=== PATIENT | male | born 1965 | race Caucasian/White ===

== ENCOUNTER 2019-05-27 03:46 | Inpatient (IN) | payer SELFPAY ==
[2019-05-27] MEDS ORDERED: Ketorolac Tromethamine 30 MG/ML VIAL ONE (05:33)
[2019-05-27 08:16] LABS: CKMB 0.5 ng/mL (0-6.6)
[2019-05-27] MEDS ORDERED: HYDROcodone/Acetaminophen 5/325 mg Tablet PO PRN (08:50)
[2019-05-27] MEDS ORDERED: Dextrose 5% in Water 1,000 ML IV PRN (08:53)
[2019-05-27] MEDS ORDERED: Dextrose 50% Abboject 50 ML SYRINGE SLOW IVP PRN (08:53)
[2019-05-27] MEDS ORDERED: Vancomycin HCl 1 GM in Premix Bag 1 BAG IVPB SCH (09:00)
[2019-05-27] MEDS ORDERED: Albuterol Sulfate 1.25 MG/3 ML NEB NEB PRN (09:17)
[2019-05-27] MEDS ORDERED: Sodium Chloride 0.9% 1,000 ML IV SCH (10:30)
--- NOTE | 2019-05-27 10:30 | CT ---
CT ANGIO CHEST PERFORMED WITH IV CONTRAST ENHANCEMENT WITH 3D RECONSTRUCTION: Date: 05/27/19 HISTORY: Chest pain, fever, tachycardia. FINDINGS: The lungs are clear of any infiltrative process. There are subsegmental atelectatic changes present. There is no significant mediastinal, hilar, or axillary adenopathy present. The thoracic aorta is normal in caliber. There is fair pulmonary artery opacification. Peripheral emb sunil are not excluded, but no central embolus is seen. Visualized liver parenchyma does not show any focal findings. Spleen is incompletely visualized, but appears enlarged, measuring greater than 14.0 cm. Right and left adrenal glands are normal in appeara nce. There is evidence of air and fluid density in an irregularly shaped collection in the midline of the upper back directly posterior to the spinous processes and within the subcutaneous tissue without def inite deep extension. It is ill-defined, but measurement would be approximately 7.0 cm. It extends ve ry close to the skin surface. There is no additional air tracking superiorly or inferiorly from this area. Findings would be most compatible with an abscess. IMPRESSION: 1. Somewhat ill-defined superficial abscess in the midline upper back region. 2. No CT evidence for pulmonary embolus. 3. Splenomegaly. Findings discussed with Dr. Rutherford. CODE CR.
--- NOTE | 2019-05-27 10:53 | CON ---
DATE OF CONSULTATION: HISTORY OF PRESENT ILLNESS: Earl Pryor is a morbidly obese 53-year-old diabetic gentleman, who for the last week, has had a sore in his back. He stated he was waiting until it felt that need to be popped, therefore did not see any physician. He now comes to the hospital with fever, chills, tachycardia, and vague chest pain. Not coughing any sputum. Apparently, he was started on some clindamycin several days ago. He is from [place], [place]. He sees a doctor in [place], [place]. PAST MEDICAL HISTORY: Sleep apnea, noncompliant, morbidly obese, and diabetes. Asthma, he takes no medication. PAST SURGICAL HISTORY: Included a fracture of his right ankle, plates and screws, which apparently did not heal. MEDICATIONS: 1. Aspirin. 2. Glipizide 10. 3. Lantus 75. 4. Gabapentin 800. 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 REVIEW OF SYSTEMS: Ten-point negative. PHYSICAL EXAMINATION: VITAL SIGNS: He is tachycardic at 150, appears to be sinus tachycardia. Blood pressure 110/80, respirations 20, and he is afebrile. CHEST: Decreased breath sounds. No wheezing. CARDIAC: Normal S1-S2. No gallops. Sinus tach. ABDOMEN: Massive. NEUROLOGIC: Awake, alert, and responsive. EXTREMITIES: He has a sore, in fact it looks like a gangrenous ulcer on his left foot. He has a large area of erythematous swelling in his posterior back measuring at least 10 x 10 cm suggestive of superficial cellulitis. LABORATORY DATA: His white count is 13,000. His glucose is elevated. IMPRESSION: Sepsis, diabetes, sleep apnea, asthma, and morbid obesity. He is on Zosyn and vancomycin, that should be more than adequate at this stage. IV fluid hydration. Surgical opinion will follow. Consultation note, 70 minutes, 50% direct patient care. Job ID: [id number]
--- NOTE | 2019-05-27 10:55 | RAD ---
3 VIEWS LEFT ANKLE: Date: 05/27/19 HISTORY: Charcot arthropathy. FINDINGS: There are degenerative changes involving the hindfoot/midfoot, likely due to Charcot arthropathy. Wit h regard to the ankle, there is mild soft tissue swelling. No evidence of fracture. Joint spaces are preserved. IMPRESSION: Charcot arthropathy of hindfoot/midfoot. POS: [facility]
--- NOTE | 2019-05-27 10:57 | HP ---
CHIEF COMPLAINT: Chest pain and back abscess. HISTORY OF PRESENT ILLNESS: This patient is a 53-year-old male with a history of significant lower extremity injury to the right leg causing substantial immobility. He also has diabetes and significant diabetic neuropathy of the ankles and feet. The patient subsequently developed morbid obesity, though he has been trying to lose some weight. He reports that he had an abscess in his upper back about 20 years ago. At that time, he waited until it had a "head on it." At that time, he apparently used a beer bottle to press down on it and express the pus from the abscess and he states that healed. At this time, he developed a similar type abscess on his back about a week ago. He thought he could wait and go through the same process this time and was not overly worried about it, but then he had some erythema extending down the central back along the spine area. He reports he has had some chills and also had some drenching night sweats, but denies fever. Denies any drainage from the wound. The patient also reports that for about the past 3 months, he has been having some intermittent chest pain which he described as "catches" that were minor. He reports that in the last 3 days, he has had a constant pain that feels like an elephant sitting on his chest and has spikes of that pain occurring a couple of times an hour, which are 10/10 pain, making it difficult for him to breathe. He has had this pain primarily in the central chest without radiation. He also at one point decided that this may be related to his blood sugar. He checked it, it was over 500. Some of his medications cut it down into the 200s, but reports he was not feeling better. He does report that with this, he has had some difficulty in concentrating, some blurred vision, and some difficulty speaking because of inability to concentrate on his words. REVIEW OF SYSTEMS: Again, notable for the chills and night sweats. He reports that he has not voided since he got to this facility last night after transferring from the [facility]. All other systems reviewed, all pertinent positives and negatives were noted in history of present illness. PAST MEDICAL HISTORY: The patient reports that he had a spiral fracture of the right tibia in 2017. He had surgery with plates and screws and states that when he was finally able to try to bear weight on it, it all fell apart and it was blamed on his being diabetic. Ultimately, the ankle apparently fused itself. Then, he has been able to bear some weight and walk on it. He also reports that he is now having swelling on his left foot. It has been present for the past 2 to 3 years, does not have much pain as he has significant neuropathy in both ankles and feet. He does have chronic pain below the knees to the ankles, which he believes may be related to the neuropathy. He also reports that he had gotten up to 455 pounds because of his immobility, but has been losing weight deliberately and is down about 50 pounds, has a history of asthma, but states he really does not require inhalers. He states that he generally only has trouble in a "stuffy room." If he gets into hot car, he has trouble breathing, but can put his face in front of the air conditioner vent and be fine. He also has a history of diabetes mellitus as his blood sugars usually run 180s to 220s. He reports a heart catheterization about 10 years ago that was described as normal. FAMILY HISTORY: Mother had smoking-related lung disease. Does not know his father's history. He has a brother with asthma. SOCIAL HISTORY: He previously smoked, quit about 20 years ago. Currently, dips snuff. Denies alcohol or drugs. He is . He is full code and his would be his surrogate decision maker. ALLERGIES: NONE. CURRENT MEDICATIONS: Glipizide, gabapentin, aspirin 325 mg p.o. daily, Toujeo, and another insulin injection, the name of which he does not know. PHYSICAL EXAMINATION: VITAL SIGNS: Maximum temperature in the emergency room has been 100.4. His pulse is ranged from 99 to 165, currently 150. Blood pressure 90s over 60s, and O2 saturations are 91% to 96% on room air. GENERAL APPEARANCE: Morbidly obese, age-appropriate male. He is in no distress. He is awake, alert, oriented, and pleasant. HEENT: PERRL. He has right ocular implant visible and has no OP lesion. He does have snuff strolling throughout in his mouth. NECK: Supple and symmetric. HEART: His heart is tachycardic, but regular with no murmurs. LUNGS: Clear to auscultation bilaterally with no wheezes or rales. ABDOMEN: Soft, nontender, and nondistended. Positive bowel sounds. No masses. No organomegaly. EXTREMITIES: He has some edema in both lower extremities. The right lower extremity has chronic dermatitis type bronzing of the skin, but no active cellulitis or inflammation. He has 1+ pretibial pitting edema. He has substantial hypertrophic osteoarthropathy of the right ankle. Left lower extremity reveals hypertrophic osteoarthropathy of the ankle with a bulge through the plantar surface of the midfoot with some mild generalized edema of the foot as well. No erythema. SKIN: Reveals a large abscess at the mid thoracic spine with large area of erythema and blanchability, slightly tender and warm. There are no superficial communications. NEUROLOGIC: The patient has no sensation to palpation in his feet. Otherwise, cognitively intact. Cranial nerves intact. EMERGENCY ROOM COURSE: The patient initially presented to the emergency department in [place], and was subsequently transferred here. He has had 2 L of fluid with normal saline administered. He has been given Tylenol, aspirin, Zofran, morphine, vancomycin, and Zosyn and 1 mg/kg of Lovenox at 0231 hours this morning. He was also started on a diltiazem bolus and drip, but had no substantial change in his heart rate, and so that was subsequently discontinued. LABORATORY DATA: White count 13.4, hemoglobin 14.1, and platelets are 245. INR 1.1, PTT 37.2. Sodium 135, potassium 4.2, chloride 97, BUN 20, creatinine 1.16, glucose 274. Troponin 0.03, subsequent is 0.032. BNP 301.6. TSH 3.06. CT of the chest only reveals the abscess of the thoracic spine, subcutaneous area. Chest x-ray, there is a slightly underpenetrated, may show some slight increased vascular markings. The patient has had multiple EKGs, which appeared to show tachycardia with left axis deviation and some incomplete right bundle branch block, possibly some atrial flutter. IMPRESSION AND PLAN: 1. Abscess of the thoracic spine, subcutaneous area. The patient received vancomycin and Zosyn. We will continue with that for the time being. This will likely need incision and drainage by Surgery that will need to wait until his heart rate is better controlled. 2. Tachycardia, possibly atrial flutter. He received a therapeutic dose of Lovenox. We will consult Cardiology. He has been somewhat symptomatic, but presently is asymptomatic. His blood pressure is borderline low and he did not respond to diltiazem bolus or infusions. Again, we will discuss with Cardiology. 3. Indeterminate troponins. This appears to be related to the tachycardia. 4. Diabetes mellitus. We will cover with sliding scale insulin. Our Pharmacy does not carry most of what he is taking at home and I do not want to give him anything, long-acting insulin, and we keep him n.p.o. for now and just in case we are able to do the surgical intervention anytime soon. 5. Diabetic neuropathy. We will continue his gabapentin. 6. Osteoarthropathy of both ankles. The right is posttraumatic. The left is likely a Charcot joint. We will obtain some x-rays. 7. History of asthma. It actually does not sound like the patient truly has asthma as he has been managing it simply by putting his face in front of air conditioner vents and such without using inhaled medication. I do not appreciate any significant wheezing presently. We will provide him with p.r.n. nebulizer treatments as needed. Job ID: [id number]
[2019-05-27] MEDS ORDERED: Vancomycin HCl 2.5 GM in Sodium Chloride 0.9% 500 ML IVPB SCH (11:00)
[2019-05-27] MEDS: HumaLOG 300 UNITS/3 ML VIAL SC PRN ×3 (11:01→20:34)
[2019-05-27] MEDS: Aspirin 325 mg Enteric Coated Tablet PO SCH (11:02)
[2019-05-27] MEDS: Famotidine 20 MG TAB PO SCH ×2 (11:02→20:35)
[2019-05-27] MEDS ORDERED: Iopamidol 370 76% 100 ML VIAL ONE (11:23)
[2019-05-27] MEDS: Vancomycin HCl 1.5 GM in Sodium Chloride 0.9% 250 ML 300 ML IVPB SCH (13:57)
[2019-05-27 14:28] LABS: Hemoglobin 12.9 g/dL (14.0-18.0); Platelet Count 209 thou/uL (130-400)
--- NOTE | 2019-05-27 14:52 | CON ---
DATE OF CONSULTATION: 05/27/2019 REASON FOR CONSULTATION: Tachycardia, chest pain. HISTORY OF PRESENT ILLNESS: Mr. Pryor is a very pleasant 53-year-old white gentleman, who comes to the hospital for chest pain and a back abscess. He has a cyst on his back that has gotten infected in the past, but it has never gotten as big as it is right now. He has had fevers up to about 101.2. He came in as he has noted in the last 3 days he has been having chest pains. He was seen in the ER and was found to be tachycardic in the 150s. He otherwise has no other issues for now. PAST MEDICAL HISTORY: 1. Diabetes. 2. Diabetic neuropathy. 3. Obesity. 4. Charcot joint. PAST SURGICAL HISTORY: Spiral fracture of the right tibia in 2017, status post repair. FAMILY HISTORY: Noncontributory. SOCIAL HISTORY: Quit smoking about 20 years ago. Dips snuff still. Denies alcohol or drugs. OUTPATIENT MEDICATIONS: 1. Exenatide microspheres 2 mg subcu every 7 days. 2. Gabapentin 600 mg p.o. t.i.d. 3. Toujeo insulin. 4. Glipizide 10 mg b.i.d. 5. Aspirin 325 a day. ALLERGIES: NO KNOWN DRUG ALLERGIES. REVIEW OF SYSTEMS: A 12-point review of systems was done and was all negative unless stated in the history of present illness. PHYSICAL EXAMINATION: VITAL SIGNS: Temperature 98.6, pulse 157, respiratory rate 16, and sat 96% on room air. GENERAL: Awake, alert, and oriented x3, in no distress. HEENT: Normocephalic and atraumatic. NECK: Supple. LUNGS: Clear. CARDIOVASCULAR: S1 and S2. Tachycardic at 157. No murmurs. ABDOMEN: Soft. Positive bowel sounds. EXTREMITIES: No edema. SKIN: Warm and dry. There is a large sebaceous cyst inflamed painful and warm to palpation on his mid upper back. Large tattoos on his back, his legs and arms. LABORATORY DATA: Laboratory work was reviewed. White count of 13, hemoglobin 14, hematocrit 42, platelet count 245. Coags were reviewed. BNP was 301. Troponin 0.03 in the indeterminate range. CK-MB was normal. Glucose was 250. Sodium 135, potassium is 4.2, BUN 20, and creatinine 1.16. EKG was reviewed, atrial flutter with 2:1 AV block. ASSESSMENT: 1. Atrial flutter with 2:1 AV block, sometimes variable block. 2. Chest pain. 3. Infected sebaceous cyst on his back, large abscesses now. PLAN: 1. We will start full anticoagulation with heparin for stroke prophylaxis. 2. We will start an amiodarone drip. If he does not convert, we will plan on doing a KIARRA cardioversion on Wednesday. 3. Continue to monitor in IMCU for now. 4. Echocardiogram to be done. 5. We will follow. Job ID: [id number]
[2019-05-27] MEDS: Amiodarone 450 MG in Dextrose 5% in Water 250 ML IVPB SCH ×2 (15:34→22:43)
[2019-05-27] MEDS: Heparin 10,000 UNITS/ 10 ML VIAL SLOW IVP SCH ×2 (15:41→22:42)
[2019-05-27] MEDS: Heparin 25,000 units/D5W 500 ML IVPB SCH (15:56)
[2019-05-27] MEDS ORDERED: Magnesium 2 GM/50 ML 2 GM in Premix Bag 1 BAG IVPB SCH (16:00)
[2019-05-27] MEDS ORDERED: Morphine 4 MG/ML VIAL SLOW IVP SCH (16:30)
[2019-05-27] MEDS: Piperacillin/Tazobactam 3.375 GM in Sodium Chloride 0.9% 100 ML IVPB SCH ×2 (16:44→21:23)
[2019-05-27] MEDS: HYDROcodone/Acetaminophen 5/325 mg Tablet PO PRN (20:56)
--- NOTE | 2019-05-27 22:34 | CON ---
DATE OF CONSULTATION: 05/27/2019 REQUESTING PHYSICIAN: Dr. Chavez. HISTORY OF PRESENT ILLNESS: This is a 53-year-old morbidly obese man with history of type 2 diabetes mellitus. The patient presented to the emergency department with complaint of painful swollen mass in his upper back. Apparently, the patient had a drained mass in the same area many years ago after warm compresses and using an empty bottle to express pus from the central portion of the lesion. Over the last 2-3 weeks, however, they have managed unsuccessfully to bring the current swelling to drain. They have tried warm compresses as well as applying "pig fat" over the wound. He reported some chills, but no fevers. He has had some night sweats over the last 2-3 days prior to this admission. The patient was also complaining of some chest pain without exertion. PAST MEDICAL HISTORY: Significant for morbid obesity, poorly controlled diabetes mellitus, spiral fracture of the right tibia in 2017. PAST SURGICAL HISTORY: Pertinent for ORIF of the said fracture. FAMILY HISTORY: Noncontributory for this patient's age. SOCIAL HISTORY: The patient is . He used to smoke a pack of cigarettes per day for over 10 years, but has not smoked over the last 20 years. Currently chews tobacco. He denies any ethanol or illicit drug abuse. PRE-HOSPITAL MEDICATIONS: 1. Gabapentin 600 mg p.o. t.i.d. 2. Glipizide 10 mg p.o. b.i.d. 3. Toujeo SoloStar insulin 75 units subcutaneously daily. 4. Aspirin 325 mg p.o. daily. ALLERGIES: THE PATIENT DENIES ANY KNOWN DRUG ALLERGIES. REVIEW OF SYSTEMS: Ten-point review of systems essentially unremarkable except as stated in past medical history and chief complaint. PHYSICAL EXAMINATION: GENERAL: This reveals a 53-year-old normally developed man, who is otherwise coherent and interactive and appears stated age. The patient is alert and oriented x3, appears to be in no acute distress at time of my evaluation. VITAL SIGNS: Blood pressure 125/66, pulse is 158, respiratory rate is 21, temperature is 99.2 degrees Fahrenheit, oxygen saturation is 99% on room air. HEENT: Reveals normocephalic and atraumatic. HEART: Reveals irregular rhythm and rate. LUNGS: Clear to auscultation bilaterally. Breathing, regular and nonlabored. ABDOMEN: Soft, nontender, nondistended. MUSCULOSKELETAL: The upper back is examined and there is a 15 x 8 x 3 cm firm raised mass in the superior aspect of the back in the upper to mid thoracic region. There is redness in the central portion of this mass which measures approximately 7 x 5 cm in dimensions and this appears to be receding as the patient's reported the redness extended to almost 2 to 3 times the diameter of the present. There is minimum tenderness with palpation. There is no opening or drainage from the wound. NEUROLOGIC: Reveals no focal deficits present. LABORATORY FINDINGS: CBC with 13,400 white blood cells, hemoglobin and hematocrit 12.9 and 38.0 respectively. Platelet count 209,000. Metabolic profile; sodium 135, potassium is 4.2, chloride 97, BUN is 14, creatinine is 1.16, bicarb is 28, glucose 274, lactic acid is 1.6, AST and ALT normal at 8 and 13 respectively. BNP is 301. PTT and INR normal at 36.5 seconds and 1.1 respectively. I have personally reviewed the CT scan of the chest, which was obtained to evaluate this posterior thoracic mass. This shows soft tissue mass which contains fluid measuring approximately 7 cm in its greatest dimension. The mass is present in the mid to upper back within the subcutaneous tissue. IMPRESSION: 1. 7 cm mid to upper back abscess, likely recurrent and infected previously poorly treated sebaceous cyst. 2. Morbid obesity. 3. New onset atrial flutter. PLAN: 1. Continue with current antibiotic regimen. 2. The patient has been seen by Cardiology to manage this new onset atrial flutter. 3. The patient ultimately will need incision and drainage and possibly excision of this infected sebaceous cyst if we can manage to resolve the surrounding cellulitis in order to limit the extent of the wound created. Above findings and plan have been discussed with the patient and his at bedside. I have answered their questions. Thank you again, Dr. Chavez for allowing me the opportunity to participate in the care of this patient. Job ID: [id number]
[2019-05-28] MEDS: Vancomycin HCl 1.5 GM in Sodium Chloride 0.9% 250 ML 300 ML IVPB SCH ×4 (01:59→21:37)
[2019-05-28] MEDS: Piperacillin/Tazobactam 3.375 GM in Sodium Chloride 0.9% 100 ML IVPB SCH ×4 (03:32→21:02)
[2019-05-28] MEDS: HumaLOG 300 UNITS/3 ML VIAL SC PRN ×4 (05:43→21:00)
[2019-05-28 06:16] LABS: #Eosinphils 0.2 thou/uL (0.0-0.7); #Lymphocytes 0.9 thou/uL (1.20-3.40); #Monocytes 0.9 thou/uL (0.11-0.59); #Neutrophils 8.3 thou/uL (1.40-6.50); %Basophils 0.2 % (0.0-1.0); %Eosinophils 1.9 % (0.0-10.0); %Lymphocytes 8.7 % (21.0-51.0); %Monocytes 8.3 % (0.0-10.0); %Neutrophils 80.9 % (42.0-75.0); Hemoglobin 12.3 g/dL (14.0-18.0); Mean Corpuscular HGB CONC 33.2 g/dL (32.0-36.0); Mean Corpuscular Hemoglobin 29.2 pg (27.0-31.0); Mean Platelet Volume 7.3 fL (7.4-10.4); Platelet Count 205 thou/uL (130-400); RBC Distribution Width 12.6 % (11.5-14.5); Red Blood Cell (RBC) Count 4.22 mill/uL (4.70-6.10); White Blood Cell (WBC) Count 10.3 thou/uL (4.8-10.8)
[2019-05-28 06:35] LABS: Anion Gap 12 mmol/L (10-20); BUN (Urea Nitrogen) 21 mg/dL (8.4-25.7); Calc. Creatinine Clearance 183 mL/min (70-130); Calcium 8.1 mg/dL (7.8-10.44); Carbon Dioxide 24 mmol/L (22-29); Chloride 98 mmol/L (98-107); Estimated GFR-MDRD 65; Glucose 351 mg/dL (70-105); Potassium 3.9 mmol/L (3.5-5.1); Sodium 130 mmol/L (136-145)
[2019-05-28] MEDS: Heparin 10,000 UNITS/ 10 ML VIAL SLOW IVP SCH ×2 (06:36→19:10)
[2019-05-28] MEDS: Aspirin 325 mg Enteric Coated Tablet PO SCH (09:04)
[2019-05-28] MEDS: Famotidine 20 MG TAB PO SCH ×2 (09:04→20:53)
[2019-05-28] MEDS ORDERED: Insulin Glargine 50 UNITS in Pre-Filled Syringe 1 EACH SC SCH (10:15)
[2019-05-28] MEDS ORDERED: glipiZIDE 10 MG TAB PO SCH (10:15)
[2019-05-28] MEDS: Heparin 25,000 units/D5W 500 ML IVPB SCH ×2 (10:19→20:55)
[2019-05-28] MEDS: Amiodarone 450 MG in Dextrose 5% in Water 250 ML IVPB SCH (10:19)
--- NOTE | 2019-05-28 10:29 | PDOC.PN ---
- Subjective Encounter Start Date: 05/28/19 Encounter Start Time: 10:28 Feels well. No complaints. - Objective Resuscitation Status - Order Detail: 05/27/19 08:50 Resuscitation Status Routine Resuscitation Status: FULL: Full Resuscitation Vital Signs & Weight: Vital Signs (12 hours) Temp Pulse Ox 05/28/19 08:00 97 05/28/19 07:20 97.0 F L 05/28/19 03:00 99.6 F 05/27/19 23:00 99.1 F 96 Weight Weight 399 lb 7.642 oz Most Recent Monitor Data Heart Rate from ECG 125 NIBP 139/71 NIBP BP-Mean 93 Respiration from ECG 25 SpO2 76 I&O: 05/27/19 05/28/19 05/29/19 06:59 06:59 06:59 Intake Total 3871.9 Output Total 2275 Balance 1596.9 Result Diagrams: 05/28/19 06:00 05/28/19 06:00 Additional Labs: Accuchecks 05/28/19 05/27/19 05/27/19 05:43 20:36 16:30 POC Glucose 358 H 297 H 308 H 05/27/19 10:42 POC Glucose 250 H Phys Exam - Physical Examination Constitutional: NAD Respiratory: no wheezing, no rales, no rhonchi Cardiovascular: RRR Tachy Gastrointestinal: soft, non-tender, no distention, positive bowel sounds Musculoskeletal: no edema Severe osteoarthropathy of the feet and ankles Neurological: non-focal Psychiatric: normal affect, A&O x 3 Dx/Plan (1) Abscess of back Code(s): L02.212 - CUTANEOUS ABSCESS OF BACK [ANY PART, EXCEPT BUTTOCK] Status : Acute (2) Atrial flutter with rapid ventricular response Code(s): I48.92 - UNSPECIFIED ATRIAL FLUTTER Status: Acute (3) Diabetes mellitus Code(s): E11.9 - TYPE 2 DIABETES MELLITUS WITHOUT COMPLICATIONS Status: Acute (4) Diabetic neuropathic arthritis Code(s): E11.610 - TYPE 2 DIABETES MELLITUS W DIABETIC NEUROPATHIC ARTHROPATHY Status: Acute (5) Tobacco abuse Code(s): Z72.0 - TOBACCO USE Status: Acute - Plan * On amio gtt. Has decreased rate from 150's to 120's. * On heparin gtt. * If no spont conversion by tomorrow, with get cardioverted. * Continue Vanc/Zosyn. * Surgery following. Will need the abscess surgically addressed when heart is stable. * Add back his home glipizide and replace Toujeo with Lantus as his sugars are high and he is not having surgery in the next 48 hours.
--- NOTE | 2019-05-28 10:53 | PRG ---
DATE OF SERVICE: 05/28/2019 SUBJECTIVE: This morning, he is doing better. Still having significant back pain. His echo showed normal EF. OBJECTIVE: VITAL SIGNS: His temperature has been 97, saturations on room air, blood pressure respiratory rate 18. BACK: Back still shows a large area of fluctuating masslike lesion, cellulitis. CHEST: Decreased breath sounds. No wheezing. CARDIAC: Normal S1 and S2. No gallops. ABDOMEN: No masses. LABORATORY DATA: Sodium 130, blood sugar 351. White count 10,000. IMPRESSION: Uncontrolled diabetes, morbid obesity, sleep apnea, cellulitis, and abscess. PLAN: Vancomycin and Zosyn on board. Supportive care. Pulmonary will follow while in the MICU. Job ID: [id number]
--- NOTE | 2019-05-28 12:08 | PDOC.CTH ---
Cardiology Progress Note - Subjective Feeling better. No new issues. - Objective Vital Signs Temp Pulse Ox 05/28/19 11:00 96.8 F L 05/28/19 08:00 97 05/28/19 07:20 97.0 F L 05/28/19 03:00 99.6 F Weight 399 lb 7.642 oz 05/27/19 05/28/19 05/29/19 06:59 06:59 06:59 Intake Total 3871.9 Output Total 2275 Balance 1596.9 - Physical Examination General/Neuro: alert & oriented x3, NAD Neck: no JVD present Lungs: CTA, unlabored respirations Heart: RRR Abdomen: NT/ND Extremities: + edema B (1+) - Telemetry Telemetry Rhythm: Aflutter HR 120's,. - Labs Result Diagrams: 05/28/19 06:00 05/28/19 06:00 Troponin/CKMB CK-MB (CK-2) 0.5 ng/mL (0-6.6) 05/27/19 07:15 Troponin I 0.032 ng/mL (< 0.028) H 05/27/19 07:15 - Assessment/Plan 1. Atrial flutter 2. Large upper back abscess 3. Normal LV function. PLAN: - Repeat ECG today. - If he remains in aflutter tomorrow will plan on KIARRA Cardioversion. - Abx per primary team. - Continue heparin drip.
[2019-05-28 12:57] LABS: Vancomycin, Trough 8.1 ug/mL
[2019-05-28] MEDS: HYDROcodone/Acetaminophen 5/325 mg Tablet PO PRN ×2 (14:46→23:17)
[2019-05-28] MEDS: Gabapentin 300 MG CAP PO SCH ×2 (14:48→20:54)
[2019-05-28] MEDS: glipiZIDE 10 MG TAB PO SCH (15:23)
--- NOTE | 2019-05-28 17:21 | ULT ---
Exam: Soft tissue ultrasound: COMPARISON: CT angiogram chest 07/27/2019 There is a 0.9 x 3.7 x 4.4 cm diameter area of altered echogenicity within the superficial subcutaneo us tissues of the area of clinical concern in the patient's back. This is much smaller in size when compared to the area of abnormal air-fluid seen on the prior CT. Has the patient had interval drainag e of this area that may account for this. IMPRESSION: Area of abnormal altered echogenicity within the subcutaneous tissues in the area of clinical concern in the patient's back which is much smaller in size compared to the prior CT scan. This certainly could represent residual abscess or phlegmon. Has the patient had interval drainage of this area that could account for this decrease in size.
--- NOTE | 2019-05-28 19:06 | PRG ---
DATE OF SERVICE: 05/28/2019 SUBJECTIVE: I have seen Mr. Pryor earlier today. Mr. Pryor is a 53-year-old morbidly obese man, who was admitted with what was thought to be a large abscess to the upper back. Clinical examination today is awake and alert. He denies any new pain. He denies any fevers or chills. He has been managed for atrial flutter and the rate is better controlled today. Examination of the wound in his upper back. The wound remains firm with palpation. No evidence of drainage or flocculence. Ultrasound was ordered today, which does not reveal any fluid collection. This is a bit surprised as this is a contrast from the CT scan of the chest, which was obtained yesterday which clearly revealed some air-fluid levels within was thought to be large abscess. His vital signs today include CBC with 10,300 white blood cells, hemoglobin and hematocrit of 12.3 and 37.1 respectively. Platelet count is 205,000. Metabolic profile; sodium 130, potassium 3.9, chloride is 98, bicarb is 24, BUN 21, creatinine is 1.17, and glucose is 351. His blood glucose has remained above 250 since admission. The patient is on heparin by continuous infusion. I will discuss with Interventional Radiology in the morning or concerning the possibility of obtaining core biopsy or percutaneous aspiration of this lesion for both microbiology and pathological purposes. I would definitely like to exclude a neoplastic process prior to the definitive intervention with regard to this mass. In the interim, I have discussed with Medicine colleagues for better tighter glucose control. Job ID: [id number]
[2019-05-28] MEDS ORDERED: Vancomycin HCl 1.5 GM in Sodium Chloride 0.9% 250 ML 300 ML IVPB SCH (22:00)
[2019-05-29] MEDS: Amiodarone 450 MG in Dextrose 5% in Water 250 ML IVPB SCH ×2 (00:12→17:05)
[2019-05-29] MEDS: Heparin 10,000 UNITS/ 10 ML VIAL SLOW IVP SCH ×2 (03:17→19:10)
[2019-05-29] MEDS: Piperacillin/Tazobactam 3.375 GM in Sodium Chloride 0.9% 100 ML IVPB SCH ×4 (03:17→21:38)
[2019-05-29] MEDS: Vancomycin HCl 1.5 GM in Sodium Chloride 0.9% 250 ML 300 ML IVPB SCH ×2 (05:23→16:11)
[2019-05-29] MEDS: Heparin 25,000 units/D5W 500 ML IVPB SCH ×3 (05:24→23:44)
[2019-05-29] MEDS: HumaLOG 300 UNITS/3 ML VIAL SC PRN ×3 (05:35→21:39)
[2019-05-29] MEDS: HYDROcodone/Acetaminophen 5/325 mg Tablet PO PRN ×3 (05:38→23:48)
--- NOTE | 2019-05-29 09:08 | PRG ---
DATE OF SERVICE: 05/29/2019 SUBJECTIVE: This morning, he is better, still having back pain. His ultrasound showed some fluctuating fluid. OBJECTIVE: VITAL SIGNS: Temperature 97, blood pressure 120/68, respirations 18, saturations 98%. CHEST: Decreased breath sounds. No wheezing. CARDIAC: Normal S1 and S2. No gallops. ABDOMEN: No masses. IMPRESSION: Uncontrolled diabetes, morbid obesity, sleep apnea, noncompliance cellulitis. PLAN: Continue antibiotics, vancomycin, Zosyn. Pulmonary will follow while in the MICU. Job ID: [id number]
--- NOTE | 2019-05-29 10:02 | PDOC.EVN ---
Event Note - Event Note Event Note: Called by RN for chest pain and nausea - new today. Pt is awaiting cardioversion, currently on amio gtt and heparin was d/c this morning for antcipated procedure. Reviewed orders - ecg being obtained, will order nitroglycerin, reglan for nausea due to amio and current [id number]'s. Requested that Shabana call Cardiology if this does not relieve symptoms.
[2019-05-29] MEDS: Nitroglycerin 0.4 MG TAB (25 Tab Bottle) SL PRN (10:10)
[2019-05-29] MEDS: Metoclopramide HCl 10 MG/2 ML VIAL IVP PRN (10:11)
[2019-05-29 10:20] LABS: INR-International Normal Ratio 1.1; PTT 33.9 SEC (22.9-36.1); Prothrombin Time 14.6 SEC (12.0-14.7)
[2019-05-29 14:24] LABS: Hemoglobin 12.1 g/dL (14.0-18.0); Platelet Count 213 thou/uL (130-400)
[2019-05-29] MEDS: Aspirin 325 mg Enteric Coated Tablet PO SCH (14:41)
[2019-05-29 14:42] LABS: Vancomycin, Trough 12.9 ug/mL
[2019-05-29] MEDS: Gabapentin 300 MG CAP PO SCH ×3 (14:42→21:38)
[2019-05-29] MEDS: Insulin Glargine 50 UNITS in Pre-Filled Syringe 1 EACH SC SCH (14:44)
[2019-05-29] MEDS: glipiZIDE 10 MG TAB PO SCH ×2 (14:46→16:21)
[2019-05-29] MEDS: Famotidine 20 MG TAB PO SCH ×2 (14:46→21:38)
[2019-05-29] MEDS: Aspirin 325 MG TAB PO SCH (14:46)
--- NOTE | 2019-05-29 16:04 | PDOC.PN ---
- Subjective Encounter Start Date: 05/29/19 (f/u DM) Encounter Start Time: 16:02 Subjective: Pt with episode of cp earlier today - resolved with nitro. Is now -: s/p cardioversion and in sinus rhythm. Denies any complaints. -: Pt did not receive lantus this morning - received around 14:00 - Objective Resuscitation Status - Order Detail: 05/27/19 08:50 Resuscitation Status Routine Resuscitation Status: FULL: Full Resuscitation Vital Signs & Weight: Vital Signs (12 hours) Temp Pulse Ox 05/29/19 15:33 97.9 F 05/29/19 11:13 96.9 F L 05/29/19 07:20 93 L 05/29/19 07:15 97.6 F Weight Admit Weight 399 lb 7.642 oz Weight 414 lb 3.977 oz Most Recent Monitor Data Heart Rate from ECG 87 NIBP 146/73 NIBP BP-Mean 97 Respiration from ECG 21 SpO2 91 I&O: 05/28/19 05/29/19 05/30/19 06:59 06:59 06:59 Intake Total 3871.9 5043.5 Output Total 2275 3125 300 Balance 1596.9 1918.5 -300 Result Diagrams: 05/29/19 14:13 05/28/19 06:00 Additional Labs: Accuchecks 05/29/19 05/28/19 05/28/19 10:42 20:09 16:34 POC Glucose 252 H 330 H 329 H EKG Reviewed by me: Yes (tele - sinus 90's) Phys Exam - Physical Examination Constitutional: NAD Respiratory: no wheezing, no rales, no rhonchi, clear to auscultation bilateral Cardiovascular: RRR, no significant murmur Gastrointestinal: soft, positive bowel sounds non-pitting edema of LE and left foot deformity decreased sensation to mid-calf bilateral Dx/Plan (1) Abscess of back Code(s): L02.212 - CUTANEOUS ABSCESS OF BACK [ANY PART, EXCEPT BUTTOCK] Status : Acute (2) Atrial flutter with rapid ventricular response Code(s): I48.92 - UNSPECIFIED ATRIAL FLUTTER Status: Acute (3) Diabetes mellitus Code(s): E11.9 - TYPE 2 DIABETES MELLITUS WITHOUT COMPLICATIONS Status: Acute (4) Diabetic neuropathic arthritis Code(s): E11.610 - TYPE 2 DIABETES MELLITUS W DIABETIC NEUROPATHIC ARTHROPATHY Status: Acute (5) Tobacco abuse Code(s): Z72.0 - TOBACCO USE Status: Acute - Plan * Appreciate Cards consult - s/p cardioversion, on amiodarone and heparin * Appreciate Gen Surg - to surgery tomorrow * * DM - uncontrolled with late dosing of lantus today, no glipizide this morning * Add 20 units of lantus tonight * Change to aggressive sliding scale * will continue to adjust based on blood sugars * anticipate NPO after midnight * Neuropathy - continue meds as ordered * * dvt prophy - full anti-coag with heparin * gi prophy - not indicated * code status full * * reviewed plan of care with patient, no questions or further needs at end of eval.
[2019-05-29] MEDS: Vancomycin HCl 1.75 GM in Sodium Chloride 0.9% 500 ML IVPB SCH ×2 (16:24→23:41)
[2019-05-29] MEDS ORDERED: PROPOFOL 200 MG/20 ML VIAL ONE (16:24)
[2019-05-29 18:09] LABS: PTT 138.9 SEC (22.9-36.1)
[2019-05-29] MEDS ORDERED: Insulin Glargine 20 UNITS in Pre-Filled Syringe 1 EACH SC SCH (21:00)
--- NOTE | 2019-05-30 03:04 | PRG ---
DATE OF SERVICE: 05/30/2019 This is El Mcknight PA-C dictating a report for Garry Evans DO. SUBJECTIVE: The patient remains in the intermediate care unit. He was admitted for a large abscess to his upper back and also was noted to have atrial flutter. 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 The patient has been started on heparin. Otherwise, has not had any issues overnight. The patient underwent ultrasound evaluation of his possible abscess. It was noted that it was largely an area that was much smaller in size compared to the prior CT exam. We opted to continue close observation antibiotic therapy. OBJECTIVE: VITAL SIGNS: Temperature is 97.6, heart rate 125, blood pressure 123/68, respirations 15, oxygen saturation 92% on room air. GENERAL: The patient is resting comfortably. He is awake, alert, and oriented. HEENT: Unremarkable. LUNGS: Clear to auscultation. HEART: Irregular rhythm with tachycardia. ABDOMEN: Soft, nontender with active bowel sounds. EXTREMITIES: Neurovascularly intact x4. BACK: On exam today, induration is slightly less and there appears to be some fluctuant today. This is unchanged from yesterday. LABORATORY FINDINGS: Hemoglobin 12.1, hematocrit 36.5, PT 14.6, INR 1.1, PTT 33.9. There was no radiographs reviewed this morning. ASSESSMENT: Likely back abscess. PLAN: Plan will be to coordinate with Cardiology once they have completed the procedure and we can perform our procedure through a heparin window. We will arrange this likely tomorrow. We will make the patient n.p.o. after midnight and plan for incision and drainage in the operating room tomorrow. The patient was evaluated with Dr. Evans this morning. Job ID: [id number]
[2019-05-30] MEDS: Piperacillin/Tazobactam 3.375 GM in Sodium Chloride 0.9% 100 ML IVPB SCH ×4 (03:33→21:32)
[2019-05-30 04:07] LABS: Anion Gap 14 mmol/L (10-20); BUN (Urea Nitrogen) 17 mg/dL (8.4-25.7); Calc. Creatinine Clearance 231 mL/min (70-130); Calcium 7.7 mg/dL (7.8-10.44); Carbon Dioxide 26 mmol/L (22-29); Chloride 102 mmol/L (98-107); Estimated GFR-MDRD 81; Glucose 245 mg/dL (70-105); Potassium 3.5 mmol/L (3.5-5.1); Sodium 138 mmol/L (136-145)
[2019-05-30] MEDS: HumaLOG 300 UNITS/3 ML VIAL SC PRN ×2 (05:46→20:41)
[2019-05-30] MEDS ORDERED: Bupivacaine/Epinephrine 0.25% 30 ML VIAL ONE (06:42)
[2019-05-30] MEDS ORDERED: Fentanyl 100 MCG/2 ML VIAL ONE (06:43)
[2019-05-30] MEDS ORDERED: Famotidine/PF 20 mg/2ml Vial ONE (07:36)
--- NOTE | 2019-05-30 09:13 | PRG ---
DATE OF SERVICE: 05/30/2019 SUBJECTIVE: Earl Pryor had I and D of the back this morning. OBJECTIVE: VITAL SIGNS: Blood pressure 145/72, pulse 80 , sat 94%, and respirations 18. GENERAL: No distress. CHEST: No wheezing or crackles. CARDIAC: Normal S1 and S2. No gallops. ABDOMEN: No masses. IMPRESSION: 1. Supraventricular tachycardia. 2. Diabetes. 3. Morbid obesity. 4. Sleep apnea. 5. Right back abscess I and D. PLAN: Continue antibiotics, supportive care. Pulmonary will follow while in the MICU. Job ID: [id number] MTDD
[2019-05-30] MEDS ORDERED: PACU-Morphine 4MG/ML VIAL SLOW IVP PRN (09:48)
[2019-05-30] MEDS ORDERED: Meperidine HCl/PF 25 MG/ML VIAL SLOW IVP PRN (09:48)
[2019-05-30] MEDS ORDERED: Promethazine HCl 25 MG/ML VIAL SLOW IVP PRN (09:48)
[2019-05-30] MEDS ORDERED: Promethazine HCl 25 MG/ML VIAL ONE (09:48)
[2019-05-30] MEDS ORDERED: Ketorolac Tromethamine 30 MG/ML VIAL IVP PRN (09:48)
[2019-05-30] MEDS ORDERED: Promethazine HCl 25 MG/ML VIAL IM PRN (09:48)
[2019-05-30] MEDS ORDERED: Succinylcholine Chloride 20 MG/ML 10 ml SYRINGE FS ONE (10:54)
[2019-05-30] MEDS ORDERED: PHENYLEPHRINE-NS 100 MCG/ML 10 ML SYRINGE ONE (10:54)
[2019-05-30] MEDS ORDERED: PROPOFOL 200 MG/20 ML VIAL ONE (10:54)
[2019-05-30] MEDS ORDERED: Ondansetron PF 4 MG/2 ML Vial ONE (10:54)
[2019-05-30] MEDS ORDERED: Lidocaine 1% PF 5 ML VIAL ONE (10:54)
--- NOTE | 2019-05-30 10:54 | OP ---
DATE OF PROCEDURE: 05/30/2019 PREOPERATIVE DIAGNOSIS: Upper back abscess. POSTOPERATIVE DIAGNOSIS: Upper back abscess. PROCEDURE PERFORMED: Excisional debridement of large upper back abscess. ANESTHESIA: General endotracheal. ESTIMATED BLOOD LOSS: 50 mL. FLUIDS GIVEN: 1000 mL crystalloids. COUNTS: Sponge and instrument counts were verified as correct x2. COMPLICATIONS: None apparent at the time of operation. INDICATIONS FOR OPERATION: A 53-year-old morbidly obese man with history of diabetes mellitus, presented with chronic upper back pain associated with flocculent mass, which failed antibiotic therapy. CT scan of the chest revealed a complex fluid collection in the upper back with air. The patient was brought to the operating room today for excisional debridement of this chronic abscess. Findings are consistent with an old abscess cavity with finger-like septations and significant amount of subcutaneous necrotic tissue down to fascia. DESCRIPTION OF OPERATION: Informed consent was obtained from the patient, who was brought to the operating room and placed in supine position. Following general anesthesia, the patient was placed in the lateral recumbent position. The upper back is widely sterilely prepped and draped in usual fashion. It was suspected this to be a sebaceous cyst. Therefore, elliptical transverse incision was made using #10 scalpel. Incision was then carried through subcutaneous tissues maintaining hemostasis using cautery. A large abscess cavity was entered and over 300 mL of white pus was evacuated from this cavity. There was a finger-like septations of this abscess cavity with extensive amount of necrotic tissue, which were sharply debrided using Metzenbaum scissors, alternated with cautery. Cultures were taken. Necrotic tissues with the island of skin were sent off for both microbiology and cytopathology. Once all necrotic tissues have been evacuated from the abscess cavity down to the level of the fascia, the wound cavity was pulse lavaged with over 3 L of sterile saline. Hemostasis was achieved using cautery. A wound VAC sponge was then embedded into the abscess cavity and a wound VAC dressing placed over this and connected this to a vacuum assisted device with good suction. The patient tolerated the operation without any apparent complication and was returned to recovery room in satisfactory condition. Job ID: [id number]
[2019-05-30] MEDS: Gabapentin 300 MG CAP PO SCH ×3 (12:07→20:40)
[2019-05-30] MEDS: Insulin Glargine 50 UNITS in Pre-Filled Syringe 1 EACH SC SCH (12:07)
[2019-05-30] MEDS: Vancomycin HCl 1.75 GM in Sodium Chloride 0.9% 500 ML IVPB SCH ×2 (12:08→16:40)
--- NOTE | 2019-05-30 12:46 | ECHO ---
DATE OF SERVICE: 05/29/19 PREPROCEDURE DIAGNOSIS: Atrial flutter. The Anesthesiology department provided with sedation for the patient. Please see their notes for det ails. After adequate sedation was achieved, transesophageal probe was inserted into the mouth and into the esophagus. Multiplanar views were obtained. Left ventricle is normal size. LV function is normal at 60-65%. Left atrium is mildly dilated. Right atrium is mildly dilated. The right ventricle is normal size with normal RV systolic function. Aortic valve is structurally normal with three cusps. No stenosis or regurgitation. Mitral valve is structurally normal. There is mild to moderate MR. No stenosis. Tricuspid valve is structurally normal. There is mild TR. Pulmonary valve is structurally normal. No stenosis or regurgitation. Left atrial appendage is widely patent with normal flow velocities and no evidence of mass or thrombu s. Thoracic aorta is normal caliber. No aneurysmal dilatations or dissections. There is grade I atherosc lerotic disease. CONCLUSIONS: 1. Normal LV systolic function, EF at 60-65%. 2. Biatrial enlargement. 3. Mild to moderate MR. 4. Mild TR. 5. No evidence of mass or thrombus in the left atrial appendage with normal flow velocities.
--- NOTE | 2019-05-30 12:53 | OP ---
DATE OF PROCEDURE: 05/29/19 PROCEDURE DIAGNOSIS: Atrial flutter. PROCEDURE PERFORMED: Direct current synchronized cardioversion. SUMMARY: The patient is a 53-year-old gentleman who comes to the outpatient area for planned KIARRA cardioversion . KIARRA was performed and ruled out any mass or thrombus, so we proceeded with cardioversion. After adequate anesthesia achieved by the Anesthesia Department, one since synchronized AICD shock was delivered at 150 joules successfully converting him from atrial flutter i nto sinus bradycardia. Heart rate in the mid to upper 50s. The patient tolerated the procedure well. RECOMMENDATIONS: 1. Continued Amiodarone for now. 2. Continue heparin drip for now. 3. May hold tomorrow for back surgery.
[2019-05-30] MEDS ORDERED: Cepastat Lozenges 1 LOZ PO PRN (15:36)
[2019-05-30 15:42] LABS: Vancomycin, Trough 26.8 ug/mL
[2019-05-30] MEDS: glipiZIDE 10 MG TAB PO SCH ×2 (15:58→18:27)
[2019-05-30] MEDS: Aspirin 325 MG TAB PO SCH (15:58)
[2019-05-30] MEDS: Famotidine 20 MG TAB PO SCH ×2 (15:58→20:40)
--- NOTE | 2019-05-30 17:46 | PDOC.PN ---
- Subjective Encounter Start Date: 05/30/19 (f/u DM) Encounter Start Time: 14:00 Subjective: Pt post-op, feels sleepy. Without complaints. - Objective Resuscitation Status - Order Detail: 05/27/19 08:50 Resuscitation Status Routine Resuscitation Status: FULL: Full Resuscitation Vital Signs & Weight: Vital Signs (12 hours) Temp Pulse Ox 05/30/19 15:05 97.2 F L 05/30/19 10:50 92 L Weight Admit Weight 399 lb 7.642 oz Weight 418 lb 10.525 oz Most Recent Monitor Data Heart Rate from ECG 80 NIBP 170/111 NIBP BP-Mean 130 Respiration from ECG 21 SpO2 96 I&O: 05/29/19 05/30/19 05/31/19 06:59 06:59 06:59 Intake Total 5043.5 4172 Output Total 3125 2300 Balance 1918.5 1872 Result Diagrams: 05/29/19 14:13 05/30/19 03:30 Additional Labs: Accuchecks 05/30/19 05/30/19 05/30/19 15:49 12:18 07:09 POC Glucose 154 H 187 H 208 H 05/30/19 05/29/19 05/29/19 05:44 20:24 05:36 POC Glucose 256 H 291 H 280 H EKG Reviewed by me: Yes (sinus rhythm) Phys Exam - Physical Examination Constitutional: NAD Respiratory: no wheezing, no rales, no rhonchi Cardiovascular: RRR, no significant murmur Gastrointestinal: soft, non-tender, no distention, positive bowel sounds Neurological: non-focal Deviation from normal: tired, easily falls asleep Dx/Plan (1) Abscess of back Code(s): L02.212 - CUTANEOUS ABSCESS OF BACK [ANY PART, EXCEPT BUTTOCK] Status : Acute (2) Atrial flutter with rapid ventricular response Code(s): I48.92 - UNSPECIFIED ATRIAL FLUTTER Status: Resolved (3) Diabetes mellitus Code(s): E11.9 - TYPE 2 DIABETES MELLITUS WITHOUT COMPLICATIONS Status: Chronic Qualifiers: 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 Heparin on hold due to surgery. * Appreciate Gen Surg - s/p surgery today * * DM - improved blood sugars, although 150 this afternoon and by report of the nurse pt feeling lightheaded. Has not eaten today secondary to surgery and drowsy. * Hold the additional 20 units of lantus tonight and will adjust AM amount * Continue aggressive sliding scale with meals * will continue to adjust based on blood sugars * Neuropathy - continue meds as ordered * * dvt prophy - heparin per Cardiology and Gen Surgery * gi prophy - not indicated * code status full * * pt remains at high risk in current condition
--- NOTE | 2019-05-30 18:33 | PDOC.CTH ---
Cardiology Progress Note - Subjective Doing much better. No new issues. - Objective Vital Signs Temp Pulse Ox 05/30/19 15:05 97.2 F L 05/30/19 10:50 92 L Admit Weight 399 lb 7.642 oz Weight 418 lb 10.525 oz 05/29/19 05/30/19 05/31/19 06:59 06:59 06:59 Intake Total 5043.5 4172 Output Total 3125 2300 Balance 1918.5 1872 - Physical Examination General/Neuro: alert & oriented x3, NAD Neck: no JVD present Lungs: unlabored respirations Heart: RRR Abdomen: NT/ND Extremities: other: (1+ edema) - Telemetry Telemetry Rhythm: NSR - Labs Result Diagrams: 05/29/19 14:13 05/30/19 03:30 Troponin/CKMB CK-MB (CK-2) 0.5 ng/mL (0-6.6) 05/27/19 07:15 Troponin I 0.032 ng/mL (< 0.028) H 05/27/19 07:15 - Assessment/Plan 1. Atrial flutter, s/p DCCV 2. Large upper back abscess s/p drainage, wound-vac in place. 3. Normal LV function. PLAN: - Start Full anticoagulation again tomorrow with heparin drip and switch to PO eliquis 5 mg BID on discharge. - Continue amiodarone load.
[2019-05-30] MEDS: HYDROcodone/Acetaminophen 5/325 mg Tablet PO PRN ×2 (19:26→23:12)
[2019-05-30] MEDS: Amiodarone 200 MG TAB PO SCH (20:40)
[2019-05-30] MEDS ORDERED: Vancomycin HCl 1.75 GM in Sodium Chloride 0.9% 500 ML IVPB SCH (23:59)
[2019-05-31] MEDS: Piperacillin/Tazobactam 3.375 GM in Sodium Chloride 0.9% 100 ML IVPB SCH ×4 (04:32→22:07)
[2019-05-31] MEDS: HumaLOG 300 UNITS/3 ML VIAL SC PRN (06:18)
[2019-05-31] MEDS: glipiZIDE 10 MG TAB PO SCH (08:37)
[2019-05-31] MEDS: Carvedilol 3.125 MG TAB PO SCH ×2 (08:38→18:35)
[2019-05-31] MEDS: Aspirin 325 MG TAB PO SCH (08:38)
[2019-05-31] MEDS: Famotidine 20 MG TAB PO SCH ×2 (08:40→20:54)
[2019-05-31] MEDS: Amiodarone 200 MG TAB PO SCH ×2 (08:40→20:54)
[2019-05-31] MEDS: Gabapentin 300 MG CAP PO SCH ×3 (08:41→20:59)
[2019-05-31] MEDS ORDERED: Insulin Glargine 65 UNITS in Pre-Filled Syringe 1 EACH SC SCH (09:00)
[2019-05-31] MEDS: Metoclopramide HCl 10 MG/2 ML VIAL IVP PRN (09:02)
[2019-05-31 09:03] LABS: #Eosinphils 0.2 thou/uL (0.0-0.7); #Lymphocytes 0.7 thou/uL (1.20-3.40); #Monocytes 0.7 thou/uL (0.11-0.59); #Neutrophils 5.5 thou/uL (1.40-6.50); %Basophils 0.2 % (0.0-1.0); %Monocytes 9.5 % (0.0-10.0); %Neutrophils 77.3 % (42.0-75.0); Hemoglobin 10.3 g/dL (14.0-18.0); Mean Corpuscular HGB CONC 32.4 g/dL (32.0-36.0); Mean Corpuscular Hemoglobin 28.8 pg (27.0-31.0); Mean Corpuscular Volume 88.8 fL (78.0-98.0); Mean Platelet Volume 6.7 fL (7.4-10.4); Platelet Count 226 thou/uL (130-400); RBC Distribution Width 12.7 % (11.5-14.5); Red Blood Cell (RBC) Count 3.57 mill/uL (4.70-6.10); White Blood Cell (WBC) Count 7.1 thou/uL (4.8-10.8)
[2019-05-31] MEDS ORDERED: Polyethylene Glycol 3350 17 GM Packet PO PRN (09:12)
--- NOTE | 2019-05-31 09:28 | PRG ---
DATE OF SERVICE: 05/31/2019 SUBJECTIVE: Earl Pryor is a 53-year-old gentleman, who is status post I and D upper back abscess. OBJECTIVE: VITAL SIGNS: Temperature 97, blood pressure 138/76, sats are 96% on 2 L, pulse 66, respiratory rate 18. GENERAL: In no distress. CHEST: Decreased breath sounds. No wheezing. CARDIAC: Normal S1 and S2. No gallops. ABDOMEN: No masses. LABORATORY DATA: White count normal, and platelet count is normal. IMPRESSION: Cellulitis, uncontrolled diabetes, sleep apnea, noncompliance, supraventricular tachycardia. PLAN: The patient is being transitioned over to Eliquis. PT, supportive care. He may benefit from an outpatient sleep study if the patient is willing to try CPAP. Job ID: [id number] [facility]
[2019-05-31] MEDS ORDERED: Insulin Glargine 40 UNITS in Pre-Filled Syringe 1 EACH SC SCH (09:30)
[2019-05-31 09:37] LABS: Anion Gap 12 mmol/L (10-20); BUN (Urea Nitrogen) 30 mg/dL (8.4-25.7); Calc. Creatinine Clearance 75 mL/min (70-130); Calcium 8.3 mg/dL (7.8-10.44); Carbon Dioxide 26 mmol/L (22-29); Chloride 99 mmol/L (98-107); Estimated GFR-MDRD 22; Glucose 207 mg/dL (70-105); Potassium 3.9 mmol/L (3.5-5.1); Sodium 133 mmol/L (136-145)
[2019-05-31] MEDS: Senokot S 8.6-50 MG TAB PO SCH ×2 (11:56→20:54)
[2019-05-31] MEDS: Morphine 4 MG/ML VIAL SLOW IVP PRN ×2 (12:22→17:45)
[2019-05-31 14:59] LABS: Hemoglobin 10.6 g/dL (14.0-18.0); Platelet Count 207 thou/uL (130-400)
[2019-05-31 15:18] LABS: Vancomycin, Random 20.5 ug/mL (See Comment)
--- NOTE | 2019-05-31 17:15 | PDOC.CTH ---
Cardiology Progress Note - Subjective No new issues. Normal breathing. - Objective Vital Signs Temp Pulse Pulse BP BP Pulse Ox Pulse Ox 05/31/19 14:52 97.4 F L 05/31/19 10:44 81 89 169/105 H 119/78 93 L 05/31/19 10:36 97.6 F 05/31/19 08:00 93 L 05/31/19 07:32 97.0 F L 05/31/19 07:00 97.0 F L Pulse Ox 05/31/19 14:52 05/31/19 10:44 92 L 05/31/19 10:36 05/31/19 08:00 05/31/19 07:32 05/31/19 07:00 Admit Weight 399 lb 7.642 oz Weight 421 lb 11.2 oz 05/30/19 05/31/19 06/01/19 06:59 06:59 06:59 Intake Total 4172 800 Output Total 2300 50 Balance 1872 750 - Physical Examination General/Neuro: alert & oriented x3, NAD Neck: no JVD present Lungs: unlabored respirations Heart: RRR Abdomen: NT/ND Extremities: + edema B (1+) - Telemetry Telemetry Rhythm: NSR - Labs Result Diagrams: 05/31/19 14:46 05/31/19 08:50 Troponin/CKMB CK-MB (CK-2) 0.5 ng/mL (0-6.6) 05/27/19 07:15 Troponin I 0.032 ng/mL (< 0.028) H 05/27/19 07:15 - Assessment/Plan 1. Atrial flutter, s/p DCCV 2. Large upper back abscess s/p drainage, wound-vac in place. 3. Normal LV function. PLAN: - Start anticoagulation once safe from surgical perspective which will be in about 1 or 2 weeks. - Continue other meds.
[2019-05-31] MEDS: Nitroglycerin 0.4 MG TAB (25 Tab Bottle) SL PRN (17:31)
--- NOTE | 2019-05-31 18:25 | PDOC.PN ---
- Subjective Encounter Start Date: 05/31/19 (f/u DM) Encounter Start Time: 18:25 Subjective: Pt seen this morning and c/o nausea. Reports norco makes it worse. -: stools are more firm. RN reports he had some chest pain associated -: with social stressors at home - Objective Resuscitation Status - Order Detail: 05/27/19 08:50 Resuscitation Status Routine Resuscitation Status: FULL: Full Resuscitation Vital Signs & Weight: Vital Signs (12 hours) Temp Pulse Pulse BP BP Pulse Ox Pulse Ox 05/31/19 14:52 97.4 F L 05/31/19 10:44 81 89 169/105 H 119/78 93 L 05/31/19 10:36 97.6 F 05/31/19 08:00 93 L 05/31/19 07:32 97.0 F L 05/31/19 07:00 97.0 F L Pulse Ox 05/31/19 14:52 05/31/19 10:44 92 L 05/31/19 10:36 05/31/19 08:00 05/31/19 07:32 05/31/19 07:00 Weight Admit Weight 399 lb 7.642 oz Weight 421 lb 11.2 oz Most Recent Monitor Data Heart Rate from ECG 68 NIBP 163/82 NIBP BP-Mean 109 Respiration from ECG 16 SpO2 93 I&O: 05/30/19 05/31/19 06/01/19 06:59 06:59 06:59 Intake Total 4172 800 Output Total 2300 50 Balance 1872 750 Result Diagrams: 05/31/19 14:46 05/31/19 08:50 Additional Labs: Accuchecks 05/31/19 05/31/19 05/31/19 16:02 10:34 09:17 POC Glucose 175 H 204 H 203 H 05/30/19 20:41 POC Glucose 210 H EKG Reviewed by me: Yes (tele - sinus 70's currently) Phys Exam - Physical Examination Constitutional: NAD Respiratory: no wheezing, no rales, no rhonchi, clear to auscultation bilateral Cardiovascular: RRR, no significant murmur Gastrointestinal: soft, non-tender, positive bowel sounds Neurological: non-focal, moves all 4 limbs Psychiatric: normal affect Dx/Plan (1) Abscess of back Code(s): L02.212 - CUTANEOUS ABSCESS OF BACK [ANY PART, EXCEPT BUTTOCK] Status : Acute (2) Atrial flutter with rapid ventricular response Code(s): I48.92 - UNSPECIFIED ATRIAL FLUTTER Status: Resolved (3) Diabetes mellitus Code(s): E11.9 - TYPE 2 DIABETES MELLITUS WITHOUT COMPLICATIONS Status: Chronic Qualifiers: Diabetes mellitus detention insulin use: with adjunct faculty for medical terminology use Diabetes mellitus complication status: with neurologic complications Diabetes mellitus complication detail: with polyneuropathy (4) Diabetic neuropathic arthritis Code(s): E11.610 - TYPE 2 DIABETES MELLITUS W DIABETIC NEUROPATHIC ARTHROPATHY Status: Chronic (5) Tobacco abuse Code(s): Z72.0 - TOBACCO USE Status: Chronic (6) THAI (acute kidney injury) Code(s): N17.9 - ACUTE KIDNEY FAILURE, UNSPECIFIED Status: Acute - Plan * THAI likely multifactorial of pre-renal and renal etiology from contrast study on 05/27, surgery yesterday, decreased PO intake yesterday and today, and antibiotics. * Start NS at 100 ml/hr * UA and repeat BMP to eval for interval change from this morning * renal ultrasound * Nephrology consult * Called Pharmacist and requested renal dosing of all meds based on current renal function * Nausea - continue reglan, avoid meds that can prolong the QT interval * Pain - added IV morphine prn * Schedule bowel meds to avoid constipation * DM - improved blood sugar control - lantus decreased to 40 units this morning. * change SSI today to mild with goal of avoiding hypoglycemia * pt's home blood sugars are 200-300's normally * Chest pain - with social stressors - prn nitroglycerin and monitor * continue other meds as ordered * * A flutter s/p cardioversion - on heparin gtt * * dvt prophy - on heparin * gi prophy -not indicated * code status full * * reviewed plan of care with patient, no questions or further needs at end of eval * reviewed all of the above with patient, no questions or further needs at end of eval
[2019-05-31] MEDS: Sodium Chloride 0.9% 1,000 ML IV SCH (18:34)
[2019-05-31 18:52] LABS: Anion Gap 14 mmol/L (10-20); BUN (Urea Nitrogen) 34 mg/dL (8.4-25.7); Calc. Creatinine Clearance 62 mL/min (70-130); Calcium 8.4 mg/dL (7.8-10.44); Carbon Dioxide 24 mmol/L (22-29); Chloride 99 mmol/L (98-107); Estimated GFR-MDRD 17; Glucose 177 mg/dL (70-105); Potassium 3.8 mmol/L (3.5-5.1); Sodium 133 mmol/L (136-145)
--- NOTE | 2019-05-31 20:23 | PRG ---
DATE OF SERVICE: 05/31/2019 SUBJECTIVE: Mr. Pryor is a 53-year-old morbidly obese man, who is status post incision and drainage of large upper back abscess postop day #1. Reports adequate pain control today. Vital signs stable. Wound VAC remains in place. We will ask wound care nursing to evaluate the patient for possible outpatient wound VAC therapy. Job ID: [id number]
--- NOTE | 2019-05-31 23:59 | ULT ---
US Renal Bilateral STANDARD: 05/31/2019 6:07 PM CLINICAL HISTORY: Acute kidney injury. STUDY: Renal ultrasound COMPARISON: None. FINDINGS: Right kidney: Echogenicity: Normal. Masses/cysts: None. Hydronephrosis: None. Calcifications: None. Length: 14.9 cm Left kidney: Echogenicity: Normal. Masses/cysts: None. Hydronephrosis: None. Calcifications: None. Length: 13.4 cm Limited visualization of the urinary bladder is unremarkable. IMPRESSION: Unremarkable renal ultrasound
[2019-06-01 03:14] LABS: Bacteria/HPF 1+ HPF (None Seen); Bilirubin Negative (Negative); Blood, Urine Trace (Negative); Clarity Turbid (Clear); Glucose, Urine (Dipstick) Normal (Negative); Leukocyte Negative Leu/uL (Negative); Nitrite Negative (Negative); Protein, Urine (Dipstick) 30 mg/dL (Neg-Trace); RBC/HPF None Seen HPF (0-3); Squamous Epithelial 0-3 HPF (0-3); Urobilinogen Normal mg/dL (Less than 2); WBC/HPF 0-3 HPF (0-3)
[2019-06-01 03:16] LABS: Urine Culture Reflex No No
--- NOTE | 2019-06-01 03:17 | CON ---
DATE OF CONSULTATION: REASON FOR CONSULTATION: Elevated creatinine. HISTORY OF PRESENT ILLNESS: This is a 53-year-old gentleman, who presented to the hospital on 05/27, with chest pain and back abscess. The patient's creatinine was 0.96 on 05/30, increased to 3.0 this morning and 3.6 this evening. The patient did have surgery and has received antibiotic therapy. The patient was not hypotensive, and the patient did not receive any nephrotoxic medication or contrast. PAST MEDICAL HISTORY: Significant for diabetes mellitus, hypertension, history of acute kidney injury, history of TIA, back surgery, tibial fracture, and morbid obesity. SOCIAL HISTORY: No alcohol or drug use. FAMILY HISTORY: Negative for ESRD. ALLERGIES: REVIEWED. HOME MEDICATIONS: List reviewed. HOSPITAL MEDICATIONS: List reviewed. REVIEW OF SYSTEMS: 15-point review of system was performed and negative except for positives noted above. GENERAL: HEAD: NECK: No swelling or lumps. NOSE: No epistaxis or discharge. EYES: No diplopia or pain. RESPIRATORY: CARDIOVASCULAR: GASTROINTESTINAL: /RUG CUTTER: MUSCULOSKELETAL: No joint pain. NEUROPSYCHIATIC SYSTEMS: No suicidal ideation. No ideation. SKIN: Denies any rash or ulcer. CONSTITUTIONAL: No fever or chills. PHYSICAL EXAMINATION: GENERAL: The patient is awake and alert. VITAL SIGNS: Afebrile, pulse 71, breathing 16, and blood pressure 169/83. GENERAL APPEARANCE AND MENTAL STATUS: Fair. HEAD/NECK: Normocephalic. Atraumatic. EYES: EOMI. No deformity. EARS: Clear. No ulcers. NOSE: Intact. No lesions. MOUTH: Clear. No discharge. THROAT: Clear. No exudate. LUNGS: Clear. No crackles. CARDIAC: S1, S2. No rub. ABDOMEN: Benign. Bowel sounds positive. GENITALIA/RECTUM: Cabrera absent. BACK/EXTREMITIES: Lower extremities have edema. NEUROLOGICAL: Alert and motor intact. SKIN: LYMPHATICS: LABORATORY DATA: Labs show creatinine 3.6. Urine studies are pending. ASSESSMENT AND RECOMMENDATION: 1. Acute kidney injury on chronic kidney disease, most likely due to acute tubular necrosis because of sepsis versus postinfectious glomerulonephritis versus drug-induced acute interstitial nephritis because of Zosyn. No indication for dialysis. Continue hydration. 2. Anemia, stable. 3. Medication based on GFR appropriate. 4. Diabetic nephropathy. 5. Chronic kidney disease, stage 3. Follow renal function and then I will also order renal imaging. Job ID: [id number]
[2019-06-01 03:24] LABS: Creatinine, Urine 51.5 mg/dL (63-166)
[2019-06-01] MEDS: Sodium Chloride 0.9% 1,000 ML IV SCH ×2 (05:03→14:43)
[2019-06-01] MEDS: Piperacillin/Tazobactam 3.375 GM in Sodium Chloride 0.9% 100 ML IVPB SCH ×2 (05:03→09:20)
--- NOTE | 2019-06-01 06:30 | PDOC.EVN ---
Event Note - Event Note Event Note: reviewing labs this morning and pt's blood sugar is 144 - the lowest it has been. Called RN and requested lantus be held until hospitalist evaluates, as this will likely need to be lowered. Unable to place hold order in the computer , and do not want long-acting insulin to fall off his profile as his blood sugars have been very high this hospitalization. Placed communication order in the computer as well with this information.
[2019-06-01 08:02] LABS: #Eosinphils 0.1 thou/uL (0.0-0.7); #Lymphocytes 0.8 thou/uL (1.20-3.40); #Monocytes 0.5 thou/uL (0.11-0.59); #Neutrophils 6.2 thou/uL (1.40-6.50); %Basophils 0.2 % (0.0-1.0); %Eosinophils 1.8 % (0.0-10.0); %Lymphocytes 10.8 % (21.0-51.0); %Monocytes 6.7 % (0.0-10.0); %Neutrophils 80.5 % (42.0-75.0); Hemoglobin 10.5 g/dL (14.0-18.0); Mean Corpuscular HGB CONC 32.3 g/dL (32.0-36.0); Mean Corpuscular Hemoglobin 28.1 pg (27.0-31.0); Mean Platelet Volume 6.7 fL (7.4-10.4); Platelet Count 260 thou/uL (130-400); RBC Distribution Width 12.6 % (11.5-14.5); Red Blood Cell (RBC) Count 3.75 mill/uL (4.70-6.10); White Blood Cell (WBC) Count 7.7 thou/uL (4.8-10.8)
[2019-06-01 08:20] LABS: Anion Gap 13 mmol/L (10-20); BUN (Urea Nitrogen) 37 mg/dL (8.4-25.7); Calc. Creatinine Clearance 56 mL/min (70-130); Calcium 8.7 mg/dL (7.8-10.44); Carbon Dioxide 25 mmol/L (22-29); Chloride 99 mmol/L (98-107); Estimated GFR-MDRD 15; Glucose 151 mg/dL (70-105); Potassium 3.9 mmol/L (3.5-5.1); Sodium 133 mmol/L (136-145)
[2019-06-01] MEDS: Famotidine 20 MG TAB PO SCH (09:17)
[2019-06-01] MEDS: Amiodarone 200 MG TAB PO SCH ×2 (09:17→20:05)
[2019-06-01] MEDS: HYDROcodone/Acetaminophen 5/325 mg Tablet PO PRN (09:17)
[2019-06-01] MEDS: Carvedilol 3.125 MG TAB PO SCH ×2 (09:18→17:41)
[2019-06-01] MEDS: Aspirin 325 MG TAB PO SCH (09:18)
[2019-06-01] MEDS: Gabapentin 300 MG CAP PO SCH ×3 (09:19→20:14)
[2019-06-01] MEDS: Insulin Glargine 40 UNITS in Pre-Filled Syringe 1 EACH SC SCH (09:19)
[2019-06-01] MEDS: Senokot S 8.6-50 MG TAB PO SCH ×2 (09:20→20:14)
[2019-06-01] MEDS: Morphine 4 MG/ML VIAL SLOW IVP PRN (09:45)
--- NOTE | 2019-06-01 11:08 | PRG ---
DATE OF SERVICE: 06/01/2019 SUBJECTIVE: This morning, he is doing better, less short of breath, less cough. His creatinine is up to 4.20, elevated, and baseline it was close to normal. OBJECTIVE: VITAL SIGNS: Temperature 97, blood pressure 138/79, respiratory rate 18. CHEST: No wheezing or crackles. CARDIAC: Normal S1 and S2. No gallops. ABDOMEN: No masses. IMPRESSION AND PLAN: Renal failure, diabetes, morbid obesity, sepsis syndrome, SVT. Continue supportive care. Continue hydration. Pulmonary will follow while in the MICU. Job ID: [id number]
--- NOTE | 2019-06-01 11:46 | PRG ---
DATE OF SERVICE: 06/01/2019 SUBJECTIVE: This is a 53-year-old gentleman being seen for acute kidney injury. The patient denies nausea, vomiting, or chest pain. OBJECTIVE: CONSTITUTIONAL: The patient is awake and alert. VITAL SIGNS: Pulse 59, breathing 16, blood pressure 130/79. GENERAL APPEARANCE AND MENTAL STATUS: Fair. HEAD/NECK: Normocephalic. Atraumatic. EYES: EOMI. No deformity. EARS: Clear. No ulcers. NOSE: Intact. No lesions. MOUTH: Clear. No discharge. THROAT: Clear. No exudate. LUNGS: Clear. No crackles. CARDIAC: S1, S2. No rub. ABDOMEN: Benign. Bowel sounds positive. GENITALIA/RECTUM: Acbrera absent. BACK/EXTREMITIES: Edema 0+. NEUROLOGICAL: Alert and motor intact. SKIN: LYMPHATICS: LABORATORY DATA: Hemoglobin 10.5. Creatinine 4.2. ASSESSMENT AND PLAN: 1. Acute kidney injury with chronic kidney disease, stage 4, likely due to acute tubular necrosis. 2. Hypertension, stable. 3. Anemia, stable. Medication based on GFR, appropriate. We will follow renal function closely. No indication for dialysis. Job ID: [id number]
[2019-06-01 12:21] LABS: Vancomycin, Random 17.7 ug/mL (See Comment)
--- NOTE | 2019-06-01 12:33 | PDOC.CTH ---
Cardiology Progress Note - Subjective pt. seen and eval. by me. He denies any cardiac complaints. - Objective Vital Signs Temp Pulse Ox 06/01/19 10:40 97.4 F L 06/01/19 08:00 96 06/01/19 07:05 97.0 F L 06/01/19 04:36 96.2 F L Admit Weight 399 lb 7.642 oz Weight 443 lb 2.066 oz 05/31/19 06/01/19 06/02/19 06:59 06:59 06:59 Intake Total 800 1470 Output Total 50 700 Balance 750 770 - Physical Examination General/Neuro: alert & oriented x3 Neck: no JVD present Lungs: CTA Heart: RRR Abdomen: NT/ND Extremities: other: (edema of lower extremities.) Other PE findings: large abcess on back: drained , bandage in place, - Labs Result Diagrams: 06/01/19 07:46 06/01/19 07:46 Troponin/CKMB CK-MB (CK-2) 0.5 ng/mL (0-6.6) 05/27/19 07:15 Troponin I 0.032 ng/mL (< 0.028) H 05/27/19 07:15 - Assessment/Plan 1. Atrial flutter, s/p DCCV. Maintaining NSR 2. Large upper back abscess s/p drainage, wound-vac in place. 3. Normal LV function. 4. Acute renal injury, due to antibiotics or infectious complications. 5. Morbid obesity 6. Anemia PLAN: - Start anticoagulation once safe from surgical perspective which will be in about 1 or 2 weeks. - Continue other meds.
[2019-06-01] MEDS ORDERED: Vancomycin HCl 1.5 GM in Sodium Chloride 0.9% 250 ML 300 ML IVPB SCH (14:00)
--- NOTE | 2019-06-01 14:27 | PDOC.PN ---
- Subjective Encounter Start Date: 06/01/19 Encounter Start Time: 14:26 Patient seen and examined, no new issues or complaints. - Objective Resuscitation Status - Order Detail: 05/27/19 08:50 Resuscitation Status Routine Resuscitation Status: FULL: Full Resuscitation Vital Signs & Weight: Vital Signs (12 hours) Temp Pulse Pulse Pulse Pulse BP BP 06/01/19 11:58 87 78 65 66 202/109 H 144/78 H 06/01/19 10:40 97.4 F L 06/01/19 08:00 06/01/19 07:05 97.0 F L 06/01/19 04:36 96.2 F L BP BP Pulse Ox Pulse Ox Pulse Ox Pulse Ox Pulse Ox 06/01/19 11:58 174/100 H 145/72 H 94 L 94 L 95 95 06/01/19 10:40 06/01/19 08:00 96 06/01/19 07:05 06/01/19 04:36 Weight Admit Weight 399 lb 7.642 oz Weight 443 lb 2.066 oz Most Recent Monitor Data Heart Rate from ECG 67 NIBP 174/94 NIBP BP-Mean 120 Respiration from ECG 14 SpO2 97 I&O: 05/31/19 06/01/19 06/02/19 06:59 06:59 06:59 Intake Total 800 1470 Output Total 50 700 Balance 750 770 Result Diagrams: 06/01/19 07:46 06/01/19 07:46 Additional Labs: Accuchecks 06/01/19 06/01/19 06/01/19 10:23 05:20 04:08 POC Glucose 202 H 144 H 126 H 05/31/19 05/31/19 05/31/19 20:21 16:02 06:17 POC Glucose 168 H 175 H 225 H Phys Exam - Physical Examination Constitutional: NAD obese HEENT: PERRLA, moist MMs Neck: no nodes, no JVD Respiratory: no wheezing, no rales, no rhonchi Cardiovascular: RRR, no significant murmur, no rub Gastrointestinal: soft, non-tender, no distention Musculoskeletal: pulses present, edema present Dx/Plan (1) THAI (acute kidney injury) Code(s): N17.9 - ACUTE KIDNEY FAILURE, UNSPECIFIED Status: Acute (2) Diabetes mellitus Code(s): E11.9 - TYPE 2 DIABETES MELLITUS WITHOUT COMPLICATIONS Status: Chronic Qualifiers: Diabetes mellitus alf insulin use: with alf use Diabetes mellitus complication status: with neurologic complications Diabetes mellitus complication detail: with polyneuropathy (3) Diabetic neuropathic arthritis Code(s): E11.610 - TYPE 2 DIABETES MELLITUS W DIABETIC NEUROPATHIC ARTHROPATHY Status: Chronic (4) Atrial flutter with rapid ventricular response Code(s): I48.92 - UNSPECIFIED ATRIAL FLUTTER Status: Resolved - Plan * s/p cardioversion * monitor for 24 hours for now * trasnfer to telemetry * possible DC in AM if ok with cardio * case and plan d/w patient at length, they understand and agree with this plan.
--- NOTE | 2019-06-01 15:40 | PRG ---
DATE OF SERVICE: 06/01/2019 SUBJECTIVE: The patient was seen this morning sitting up in bed with no signs of acute distress. He is postoperative day #2, status post excision and drainage of large upper back abscess with wound VAC placement by wound VAC team. The patient's wound was seen today, was clean and dry, and he was changed to wet-to-dry dressing changes b.i.d. Of note, the patient also has a significantly increasing creatinine today of 4.2 from 3.6. He does not have any history of known kidney disease. Also, he has had increase in his weight of 40 pounds since his admission. Urinary output has also decreased yesterday. Primary team did consult Nephrology. The patient reports he is tolerating a heart-healthy diet. Denies nausea, vomiting, or diarrhea. OBJECTIVE: VITAL SIGNS: Temperature 97.4, pulse 59, respirations 18, oxygen saturation 92% on room air, and blood pressure 138/79. GENERAL: Well-appearing obese male, sitting up in bed with no signs of acute distress. CARDIAC: Regular rate and rhythm. No murmurs, gallops, or rubs. GI: Abdomen is soft, nontender, nondistended. EXTREMITIES: Chronic swelling in lower extremities. Otherwise, gross motor and sensation are intact. BACK: Large postoperative wound is clean and dry. We will change to b.i.d. wet-to-dry dressing changes by Wound Care. LABORATORY FINDINGS: White count 7.7, hemoglobin 10.5, hematocrit 32.6, and platelets 260. Sodium 133, potassium 3.9, chloride 99, carbon dioxide 25, BUN 37, creatinine 4.2, and glucose 151. DIAGNOSTIC FINDINGS: There are no new diagnostic findings to discuss. ASSESSMENT: 1. Status post excision and drainage of large upper back abscess, postop day 2 now. 2. Atrial flutter, resolved. 3. Acute kidney injury, worse today. PLAN: The patient's wound VAC will be discontinued and Wound Care to complete wet-to-dry dressing changes b.i.d. to surgical wound on back. Surgery did discontinue the patient's IV vanc and Zosyn as it is likely causing his kidney injury. I did discuss with nursing to further hold these IV antibiotics and to discuss with primary team as well. The patient is nontoxic appearing. He is afebrile, normotensive, and his white count remains normal at this time. We will continue to follow the patient while he is admitted. The patient was seen and examined by Dr. Evans and myself this morning during rounds. Job ID: [id number]
[2019-06-01] MEDS: Metoclopramide HCl 10 MG/2 ML VIAL IVP PRN (16:11)
[2019-06-02] MEDS: Sodium Chloride 0.9% 1,000 ML IV SCH ×2 (00:30→09:13)
[2019-06-02] MEDS: Senokot S 8.6-50 MG TAB PO SCH ×4 (00:58→21:18)
[2019-06-02 05:13] LABS: Anion Gap 14 mmol/L (10-20); BUN (Urea Nitrogen) 43 mg/dL (8.4-25.7); Calc. Creatinine Clearance 48 mL/min (70-130); Calcium 8.6 mg/dL (7.8-10.44); Carbon Dioxide 22 mmol/L (22-29); Chloride 101 mmol/L (98-107); Estimated GFR-MDRD 12; Glucose 173 mg/dL (70-105); Sodium 133 mmol/L (136-145)
[2019-06-02] MEDS: Famotidine 20 MG TAB PO SCH (09:10)
[2019-06-02] MEDS: Amiodarone 200 MG TAB PO SCH ×2 (09:10→21:17)
[2019-06-02] MEDS: Gabapentin 300 MG CAP PO SCH ×3 (09:11→21:20)
[2019-06-02] MEDS: Carvedilol 3.125 MG TAB PO SCH ×2 (09:11→17:20)
[2019-06-02] MEDS: Insulin Glargine 40 UNITS in Pre-Filled Syringe 1 EACH SC SCH (09:11)
--- NOTE | 2019-06-02 10:53 | PRG ---
DATE OF SERVICE: 06/02/2019 SUBJECTIVE: Mr. Pryor is a 53-year-old morbidly obese man, who is postoperative day #3 status post incision and drainage of a large upper back abscess. The patient is stable today. He reports adequate pain control. His has been instructed on how to provide local wound care. His vital signs have remained stable through this admission. He is afebrile. OBJECTIVE: VITAL SIGNS: Currently, vital signs reveals blood pressure is 164/84, pulse is 60, respiratory rate is 19, maximum temperature in the last 24 hours is 98.3 degrees Fahrenheit, and oxygen saturation is 97% on room air. SKIN: Wound bed is clean and dry. No residual purulence present. LABORATORY DATA: Findings includes metabolic profile; sodium 133, potassium is 4.0, chloride is 101, bicarb is 22, BUN is 43, creatinine is 4.98, and glucose 173. IMPRESSION AND PLAN: 1. Postop day #3 status post incision and drainage of large upper back abscess. 2. Acute kidney injury likely acute tubular necrosis, antibiotic-induced. a. The patient does not require any further antibiotic treatment. The source of infection has been adequately controlled and there is no residual infection on the wound itself. b. Local wound care will be adequate for management going forward. c. Nephrology is following the patient with regard to the acute kidney injury. d. There is no further surgical indication for this patient at this time. The patient will be seeing me in the General Surgery Clinic in 2 weeks. Job ID: [id number]
[2019-06-02] MEDS: cloNIDine 0.1 MG TAB PO PRN ×2 (12:40→22:26)
[2019-06-02 14:23] LABS: Hemoglobin 11.3 g/dL (14.0-18.0); Platelet Count 256 thou/uL (130-400)
--- NOTE | 2019-06-02 15:03 | PDOC.PN ---
- Subjective Encounter Start Date: 06/02/19 Encounter Start Time: 15:02 Patient seen and examined, no new issues. - Objective Resuscitation Status - Order Detail: 05/27/19 08:50 Resuscitation Status Routine Resuscitation Status: FULL: Full Resuscitation Vital Signs & Weight: Vital Signs (12 hours) Temp Pulse BP BP Pulse Ox 06/02/19 12:40 179/99 H 06/02/19 12:00 100 06/02/19 11:07 96.0 F L 06/02/19 09:35 60 166/82 H 06/02/19 07:51 95 06/02/19 07:31 96.6 F L 06/02/19 03:53 98.3 F Weight Admit Weight 399 lb 7.642 oz Weight 446 lb 10.504 oz Most Recent Monitor Data Heart Rate from ECG 56 NIBP 179/99 NIBP BP-Mean 125 Respiration from ECG 16 SpO2 100 I&O: 06/01/19 06/02/19 06/03/19 06:59 06:59 06:59 Intake Total 1470 2215 973 Output Total 700 1400 300 Balance 770 815 673 Result Diagrams: 06/02/19 14:10 06/02/19 04:33 Additional Labs: Accuchecks 06/02/19 06/02/19 06/01/19 10:46 05:57 19:56 POC Glucose 204 H 172 H 209 H 06/01/19 16:16 POC Glucose 147 H Phys Exam - Physical Examination Constitutional: NAD obese HEENT: PERRLA, moist MMs, sclera anicteric Neck: no nodes, no JVD, supple Respiratory: no wheezing, no rales, no rhonchi Cardiovascular: RRR, no significant murmur, no rub Gastrointestinal: soft, non-tender, no distention, positive bowel sounds Musculoskeletal: pulses present, edema present Dx/Plan (1) THAI (acute kidney injury) Code(s): N17.9 - ACUTE KIDNEY FAILURE, UNSPECIFIED Status: Acute (2) Diabetes mellitus Code(s): E11.9 - TYPE 2 DIABETES MELLITUS WITHOUT COMPLICATIONS Status: Chronic Qualifiers: Diabetes mellitus long-term insulin use: with long-term use Diabetes mellitus complication status: with neurologic complications Diabetes mellitus complication detail: with polyneuropathy (3) Diabetic neuropathic arthritis Code(s): E11.610 - TYPE 2 DIABETES MELLITUS W DIABETIC NEUROPATHIC ARTHROPATHY Status: Chronic (4) Atrial flutter with rapid ventricular response Code(s): I48.92 - UNSPECIFIED ATRIAL FLUTTER Status: Resolved - Plan * DC IVFs * labs in AM, check A1C * DC lantus * wet to dry wound care changes * transfer to med/sx floor for now * monitor Cr levels, wait for a decrease * case and plan d/w patient at length, he understood and agreed with this plan.
[2019-06-02] MEDS ORDERED: Lisinopril 20 MG TAB PO SCH (15:15)
[2019-06-02 15:36] LABS: Troponin I Less than 0.010 ng/mL (< 0.028)
--- NOTE | 2019-06-02 15:54 | PRG ---
DATE OF SERVICE: 06/02/2019 SUBJECTIVE: A 53-year-old gentleman being seen for acute kidney injury. The patient denies nausea, vomiting, or chest pain. OBJECTIVE: CONSTITUTIONAL: The patient is awake and alert. VITAL SIGNS: Afebrile, pulse 75, breathing 16, and blood pressure was 175/90. GENERAL APPEARANCE AND MENTAL STATUS: Fair. HEAD/NECK: Normocephalic. Atraumatic. EYES: EOMI. No deformity. EARS: Clear. No ulcers. NOSE: Intact. No lesions. MOUTH: Clear. No discharge. THROAT: Clear. No exudate. LUNGS: Clear. No crackles. CARDIAC: S1, S2. No rub. ABDOMEN: Benign. Bowel sounds positive. GENITALIA/RECTUM: Cabrera absent. BACK/EXTREMITIES: Edema 0+. NEUROLOGICAL: Alert and motor intact. SKIN: LYMPHATICS: LABORATORY DATA: Labs reviewed. ASSESSMENT AND PLAN: Acute kidney injury stage 5 due to acute tubular necrosis versus drug-induced acute interstitial nephritis. We will follow renal function closely. Consider hydration. Stop lisinopril. Hypertension, titrate the patient's medication. Anemia, stable. Medication based on GFR appropriate. Job ID: [id number]
[2019-06-02] MEDS: HumaLOG 300 UNITS/3 ML VIAL SC PRN ×2 (17:21→22:32)
--- NOTE | 2019-06-02 17:33 | CON ---
DATE OF CONSULTATION: 06/02/2019 REASON FOR CONSULTATION: Back inflammatory process, soft tissues. HISTORY OF PRESENT ILLNESS: A 53-year-old with morbid obesity, almost 500 pounds, sleep apnea, mobility impairment, fracture of left tibia with ORIF, and then disruption of the ORIF, and eventually it fused on its own, severe Charcot arthropathy of left foot, type 2 diabetes, and a prior normal cardiac catheterization. SOCIAL HISTORY: Former smoker. Chews tobacco at this time, but does not smoke anymore. . Disabled. Used to work in [employer]. FAMILY HISTORY: COPD, asthma. ALLERGIES: NONE. CURRENT MEDICATIONS: 1. Tylenol. 2. [place]. 3. Albuterol. 4. Cordarone. 5. Acutrim. 6. Coreg. 7. Catapres. 8. Glucagon. 9. Heparin. 10. Insulin. 11. Reglan. 12. Morphine. 13. Nitrostat. PHYSICAL EXAMINATION: VITAL SIGNS: T-max 98.3, blood pressure 180/90, O2 saturation 100 on 2 L, pulse 83, and respiratory rate 20. SKIN: Shallow abrasion in the lateral aspect of the heel, left side, with mild erythema and area of bruising in the lateral aspect of the left foot and an extended area of erythema in the back region. This is prior to the I and D procedure. Another photo was not taken. No lymphadenopathies, tattoos in back, and appendicular skin. HEENT: Ocular movements conjugate. Sclerae white. Pupils are equal. Oral cavity with still quite a few teeth in place with quite significant decay, periodontitis. NECK: Supple. No jugular vein distention. LUNGS: Symmetric. Clear breath sounds. HEART: S1, S2. Regular rate. No S3 or S4. ABDOMEN: Soft. Not distended or tender. Some lymphedema in the lower abdominal fold area. Some macerations of the intertriginous areas. EXTREMITIES: Lymphedema of lower extremities present. The back area is dressed at this time. He moves extremities on command. NEURO: There is no focal weakness. Cognitive function appears to be intact. LABORATORY DATA: Pathology of surgical specimen with skin and subcutaneous tissue with focal abscess. Stains negative for fungi and mycobacteria. Renal ultrasound unremarkable. The patient had a transesophageal echocardiogram for cardioversion and this was normal. There is a soft tissue ultrasound from admission with area of abnormal altered echogenicity within the subcutaneous tissues of the area of clinical concern. The microbiology thus far negative for any organisms in the Gram stain and cultures are negative thus far. No anaerobes in 3 days. The operative report was reviewed and the abscess cavity was entered. Over 300 mL of white pus was evacuated from the cavity with finger-like septations. Extensive amount of necrotic tissue sharply debrided. ASSESSMENT: 1. Morbid obesity. 2. Type 2 diabetes. 3. Likely sebaceous cyst, secondarily infected, status post surgical debridement with a large abscess cavity with multiple loculations. 4. Negative Gram stain and cultures. DISCUSSION: The most likely scenario is propionibacterium or similar skin organism, superinfection of sebaceous cyst. At this point, we would consider a combination of Augmentin plus doxycycline and continuation of wound care in the outpatient setting. Follow up culture results and clinical progress to verify resolution of the process. Job ID: [id number]
[2019-06-02] MEDS ORDERED: NIFEdipine XL 30 MG TAB PO SCH (18:00)
--- NOTE | 2019-06-02 20:25 | PRG ---
DATE OF SERVICE: 06/02/2019 SUBJECTIVE: Mr. Pryor was evaluated today. He is complaining of a tight feeling in his chest. An EKG was ordered, and troponins were ordered by the hospitalist. Those were pending. Hemoglobin is stable at 11.3 g. OBJECTIVE: LUNGS: Clear. He says he has asthma that he manages with a nebulizer when he has spring and fall flareups, but never has flareups in the summer. HEART: Regular rhythm. ABDOMEN: Soft. IMPRESSION: 1. Tight feeling? Related to hypertension. 2. Morbid obesity, weighing close to 500 pounds. 3. Diabetes. 4. History of asthma, that clinically does not appear to be active at this point in time. I suggested inhaled steroids, but he refuses to take inhaled steroids because of his diabetes he says. I explained to him that inhaled steroids would not elevate his blood glucoses, but he still declines. His multiple other problems including poorly-controlled diabetes, chronic kidney disease, and life-threatening obesity. He appears to be stable at this point in time. He is status post drainage of an upper back abscess. He is being followed by surgery for that. Wound care is following with recommendations per Dr. Evans. Infectious Disease was consulted and recommended Augmentin plus doxycycline as well as local wound care. We will sign off. Job ID: [id number]
[2019-06-02 22:06] LABS: Fungus Stain Final report (.)
[2019-06-02 22:06] LABS: Fungus Stain Final report (.)
[2019-06-02 22:12] LABS: Troponin I Less than 0.010 ng/mL (< 0.028)
[2019-06-03 05:00] LABS: #Eosinphils 0.1 thou/uL (0.0-0.7); #Lymphocytes 0.8 thou/uL (1.20-3.40); #Monocytes 0.7 thou/uL (0.11-0.59); #Neutrophils 5.7 thou/uL (1.40-6.50); %Basophils 0.1 % (0.0-1.0); %Eosinophils 1.8 % (0.0-10.0); %Lymphocytes 10.6 % (21.0-51.0); %Monocytes 9.3 % (0.0-10.0); %Neutrophils 78.1 % (42.0-75.0); Mean Corpuscular HGB CONC 33.2 g/dL (32.0-36.0); Mean Corpuscular Hemoglobin 28.5 pg (27.0-31.0); Mean Corpuscular Volume 85.8 fL (78.0-98.0); Mean Platelet Volume 6.8 fL (7.4-10.4); Platelet Count 290 thou/uL (130-400); RBC Distribution Width 12.7 % (11.5-14.5); Red Blood Cell (RBC) Count 3.85 mill/uL (4.70-6.10); White Blood Cell (WBC) Count 7.3 thou/uL (4.8-10.8)
[2019-06-03 05:18] LABS: Hemoglobin A1c 9.7 % (4.0-6.0)
[2019-06-03 05:21] LABS: Anion Gap 13 mmol/L (10-20); BUN (Urea Nitrogen) 49 mg/dL (8.4-25.7); Calc. Creatinine Clearance 44 mL/min (70-130); Calcium 8.8 mg/dL (7.8-10.44); Carbon Dioxide 24 mmol/L (22-29); Chloride 102 mmol/L (98-107); Estimated GFR-MDRD 11; Glucose 210 mg/dL (70-105); Potassium 4.6 mmol/L (3.5-5.1); Sodium 134 mmol/L (136-145)
[2019-06-03] MEDS ORDERED: NIFEdipine XL 30 MG TAB PO SCH (09:00)
[2019-06-03] MEDS ORDERED: Lisinopril 20 MG TAB PO SCH (09:00)
[2019-06-03] MEDS: Amiodarone 200 MG TAB PO SCH ×2 (09:08→18:47)
[2019-06-03] MEDS: Carvedilol 3.125 MG TAB PO SCH (09:08)
[2019-06-03] MEDS: Aspirin 81 mg Enteric Coated Tablet PO SCH (09:08)
[2019-06-03] MEDS: Famotidine 20 MG TAB PO SCH (09:09)
[2019-06-03] MEDS: Senokot S 8.6-50 MG TAB PO SCH ×2 (09:09→20:37)
[2019-06-03] MEDS: Gabapentin 300 MG CAP PO SCH ×3 (09:09→20:37)
[2019-06-03] MEDS: NIFEdipine XL 60 MG TAB PO SCH (09:09)
--- NOTE | 2019-06-03 11:30 | PDOC.PN ---
- Subjective Encounter Start Date: 06/03/19 Encounter Start Time: 11:29 Patient seen and examined, no new issues or complaints. - Objective Resuscitation Status - Order Detail: 05/27/19 08:50 Resuscitation Status Routine Resuscitation Status: FULL: Full Resuscitation Vital Signs & Weight: Vital Signs (12 hours) Temp Pulse Resp BP Pulse Ox 06/03/19 11:08 96.9 F L 91 20 164/101 H 96 06/03/19 07:49 98 06/03/19 07:32 96.2 F L 06/03/19 03:42 97.3 F L 06/02/19 23:42 97.8 F Weight Admit Weight 399 lb 7.642 oz Weight 445 lb 1.813 oz Most Recent Monitor Data Heart Rate from ECG 70 NIBP 161/102 NIBP BP-Mean 121 Respiration from ECG 10 SpO2 97 I&O: 06/02/19 06/03/19 06/04/19 06:59 06:59 06:59 Intake Total 2215 3440 Output Total 1400 3125 350 Balance 815 315 -350 Result Diagrams: 06/03/19 04:26 06/03/19 04:26 Additional Labs: Accuchecks 06/03/19 06/03/19 06/02/19 10:32 06:00 22:32 POC Glucose 257 H 205 H 236 H 06/02/19 06/02/19 20:17 16:34 POC Glucose 222 H 232 H Phys Exam - Physical Examination Constitutional: NAD obese HEENT: PERRLA, moist MMs, sclera anicteric Neck: no nodes, no JVD, supple Respiratory: no wheezing, no rales, no rhonchi Cardiovascular: RRR, no significant murmur, no rub Gastrointestinal: soft, non-tender, no distention, positive bowel sounds Musculoskeletal: pulses present, edema present Dx/Plan (1) THAI (acute kidney injury) Code(s): N17.9 - ACUTE KIDNEY FAILURE, UNSPECIFIED Status: Acute (2) Diabetes mellitus Code(s): E11.9 - TYPE 2 DIABETES MELLITUS WITHOUT COMPLICATIONS Status: Chronic Qualifiers: Diabetes mellitus prison insulin use: with long term care pharmacist use Diabetes mellitus complication status: with neurologic complications Diabetes mellitus complication detail: with polyneuropathy (3) Diabetic neuropathic arthritis Code(s): E11.610 - TYPE 2 DIABETES MELLITUS W DIABETIC NEUROPATHIC ARTHROPATHY Status: Chronic (4) Atrial flutter with rapid ventricular response Code(s): I48.92 - UNSPECIFIED ATRIAL FLUTTER Status: Resolved - Plan * had an episode of AFlutter, HR < 110, cont current medical management * nurse requested to inform jewel cupping machine operator regarding change in rhythm, vitals stable * Cr rising, today 5.47, likely contrast induced nephropathy, monitor for now, renal following * no changes in plan of care for now * plan d/w patient at length, he understood and agreed with this plan.
[2019-06-03] MEDS: HumaLOG 300 UNITS/3 ML VIAL SC PRN ×3 (11:41→20:57)
--- NOTE | 2019-06-03 13:46 | PRG ---
DATE OF SERVICE: 06/03/2019 SUBJECTIVE: A 53-year-old gentleman being seen for acute kidney injury. The patient denies any nausea, vomiting, or chest pain. OBJECTIVE: CONSTITUTIONAL: The patient is awake and alert. VITAL SIGNS: Afebrile, pulse 75, breathing 16, and blood pressure 160/100. GENERAL APPEARANCE AND MENTAL STATUS: Fair. HEAD/NECK: Normocephalic. Atraumatic. EYES: EOMI. No deformity. EARS: Clear. No ulcers. NOSE: Intact. No lesions. MOUTH: Clear. No discharge. THROAT: Clear. No exudate. LUNGS: Clear. No crackles. CARDIAC: S1, S2. No rub. ABDOMEN: Benign. Bowel sounds positive. GENITALIA/RECTUM: Cabrera absent. BACK/EXTREMITIES: Edema 0+. NEUROLOGICAL: Alert and motor intact. SKIN: LYMPHATICS: LABORATORY DATA: Reviewed. ASSESSMENT AND PLAN: Chronic kidney disease stage 5 with creatinine rising. No indication for dialysis. Anemia, stable. Hypertension, would recommend increasing the patient's nifedipine to 90 mg. Job ID: [id number]
[2019-06-03] MEDS: Gabapentin 100 MG CAP PO SCH ×2 (15:49→20:37)
[2019-06-03] MEDS: Acetaminophen 500 MG TAB PO PRN (17:58)
[2019-06-03 20:48] LABS: Troponin I Less than 0.010 ng/mL (< 0.028)
--- NOTE | 2019-06-03 23:42 | EKG ---
Test Reason : Blood Pressure : / mmHG Vent. Rate : 156 BPM Atrial Rate : 156 BPM P-R Int : 000 ms QRS Dur : 092 ms QT Int : 250 ms P-R-T Axes : 215 -36 034 degrees QTc Int : 402 ms Unusual P axis, possible ectopic atrial tachycardia Left axis deviation Pulmonary disease pattern Incomplete right bundle branch block Inferior infarct , age undetermined Abnormal ECG Confirmed by JANETTE ARNDT ([id number]), sports editor LEYDI TURCIOS ([id number]) on 06/03/2019 11:42:35 PM Referred By: Confirmed By:JANETTE ARNDT
--- NOTE | 2019-06-03 23:42 | EKG ---
Test Reason : Blood Pressure : / mmHG Vent. Rate : 159 BPM Atrial Rate : 159 BPM P-R Int : 000 ms QRS Dur : 092 ms QT Int : 246 ms P-R-T Axes : 000 -36 031 degrees QTc Int : 400 ms Sinus tachycardia Left axis deviation Incomplete right bundle branch block Inferior infarct , age undetermined Abnormal ECG Confirmed by JANETTE ARNDT ([id number]), writer editor LEYDI TURCIOS ([id number]) on 06/03/2019 11:42:34 PM Referred By: Confirmed By:JANETTE ARNDT
--- NOTE | 2019-06-03 23:42 | EKG ---
Test Reason : Blood Pressure : / mmHG Vent. Rate : 154 BPM Atrial Rate : 154 BPM P-R Int : 128 ms QRS Dur : 096 ms QT Int : 280 ms P-R-T Axes : 000 -37 030 degrees QTc Int : 448 ms Sinus tachycardia Left axis deviation Incomplete right bundle branch block Inferior infarct , age undetermined Abnormal ECG Confirmed by JANETTE ARNDT ([id number]), business editor LEYDI TURCIOS ([id number]) on 06/03/2019 11:42:36 PM Referred By: Confirmed By:JANETTE ARNDT
[2019-06-04 04:25] LABS: Troponin I Less than 0.010 ng/mL (< 0.028)
[2019-06-04] MEDS: cloNIDine 0.1 MG TAB PO PRN (05:29)
[2019-06-04] MEDS: HumaLOG 300 UNITS/3 ML VIAL SC PRN ×4 (05:34→21:20)
[2019-06-04 07:11] LABS: Hemoglobin 11.1 g/dL (14.0-18.0); Platelet Count 335 thou/uL (130-400)
[2019-06-04 07:34] LABS: Anion Gap 16 mmol/L (10-20); BUN (Urea Nitrogen) 55 mg/dL (8.4-25.7); Calc. Creatinine Clearance 43 mL/min (70-130); Calcium 8.7 mg/dL (7.8-10.44); Carbon Dioxide 23 mmol/L (22-29); Chloride 102 mmol/L (98-107); Estimated GFR-MDRD 11; Glucose 288 mg/dL (70-105); Potassium 4.7 mmol/L (3.5-5.1); Sodium 136 mmol/L (136-145)
[2019-06-04] MEDS: Amiodarone 200 MG TAB PO SCH ×2 (08:04→21:00)
[2019-06-04] MEDS: Aspirin 81 mg Enteric Coated Tablet PO SCH (08:15)
[2019-06-04] MEDS: Famotidine 20 MG TAB PO SCH (08:15)
[2019-06-04] MEDS: Gabapentin 300 MG CAP PO SCH ×3 (08:16→21:00)
[2019-06-04] MEDS: Senokot S 8.6-50 MG TAB PO SCH ×2 (08:16→21:00)
[2019-06-04] MEDS: Gabapentin 100 MG CAP PO SCH ×3 (08:16→21:00)
[2019-06-04] MEDS: NIFEdipine XL 60 MG TAB PO SCH (08:16)
--- NOTE | 2019-06-04 12:33 | PRG ---
DATE OF SERVICE: SUBJECTIVE: This is a 53-year-old gentleman, being seen for acute kidney injury. The patient denies any nausea, vomiting or chest pain. OBJECTIVE: CONSTITUTIONAL: The patient is awake and alert. VITAL SIGNS: Afebrile, pulse 75, breathing 16, blood pressure was 156/75. GENERAL APPEARANCE AND MENTAL STATUS: Fair. HEAD/NECK: Normocephalic. Atraumatic. EYES: EOMI. No deformity. EARS: Clear. No ulcers. NOSE: Intact. No lesions. MOUTH: Clear. No discharge. THROAT: Clear. No exudate. LUNGS: Clear. No crackles. CARDIAC: S1, S2. No rub. ABDOMEN: Benign. Bowel sounds positive. GENITALIA/RECTUM: Cabrera absent. BACK/EXTREMITIES: Edema 0+. NEUROLOGICAL: Alert and motor intact. SKIN: LYMPHATICS: LABORATORY DATA: Reviewed. ASSESSMENT AND PLAN: 1. Stage 5 chronic kidney disease, stable. 2. Anemia, stable, medication based on GFR appropriate, no indication for dialysis. 3. Acute tubular necrosis, improved. Job ID: [id number]
--- NOTE | 2019-06-04 19:40 | PDOC.PN ---
- Subjective Encounter Start Date: 06/04/19 Encounter Start Time: 10:00 Pt seen for followup re: THAI. Feels better. Worried about high blood sugars. - Objective Resuscitation Status - Order Detail: 05/27/19 08:50 Resuscitation Status Routine Resuscitation Status: FULL: Full Resuscitation MAR Reviewed: Yes Vital Signs & Weight: Vital Signs (12 hours) Temp BP Pulse Ox 06/04/19 15:21 96.4 F L 06/04/19 11:27 97.0 F L 06/04/19 08:16 155/66 H 06/04/19 07:51 95 Weight Admit Weight 399 lb 7.642 oz Weight 445 lb 1.813 oz Most Recent Monitor Data Heart Rate from ECG 73 NIBP 174/89 NIBP BP-Mean 117 Respiration from ECG 16 SpO2 97 I&O: 06/03/19 06/04/19 06/05/19 06:59 06:59 06:59 Intake Total 3440 2920 2500 Output Total 3125 5330 3250 Balance 315 -4251 -831 Result Diagrams: 06/09/19 03:10 06/09/19 03:10 Additional Labs: Accuchecks 06/04/19 06/04/19 06/03/19 16:49 09:51 20:39 POC Glucose 334 H 330 H 363 H EKG Reviewed by me: Yes (Tele: NSR) Phys Exam - Physical Examination Morbid obesity HEENT: moist MMs Neck: supple Respiratory: clear to auscultation bilateral Cardiovascular: RRR Gastrointestinal: soft Neurological: moves all 4 limbs Psychiatric: normal affect Dx/Plan (1) THAI (acute kidney injury) Code(s): N17.9 - ACUTE KIDNEY FAILURE, UNSPECIFIED Status: Acute Comment: creatinine stabilizing, 5.52 today (2) Abscess of back Code(s): L02.212 - CUTANEOUS ABSCESS OF BACK [ANY PART, EXCEPT BUTTOCK] Status : Acute Comment: s/p excisional debridement, marked improvement. discussed w DR. Sal-no need for continued ABx as wound looks healthy & necrotic tissue was completly excised (3) Diabetes mellitus Code(s): E11.9 - TYPE 2 DIABETES MELLITUS WITHOUT COMPLICATIONS Status: Chronic Qualifiers: Diabetes mellitus director long term care insulin use: with prison use Diabetes mellitus complication status: with neurologic complications Diabetes mellitus complication detail: with polyneuropathy Comment: b.lood sugars high, start low dose Lantus (5 units HS), monotor accuchecks, continue insulin sliding scale. (4) Atrial flutter with rapid ventricular response Code(s): I48.92 - UNSPECIFIED ATRIAL FLUTTER Status: Acute Comment: S/P Ablation 06/07/19 Started on Couamdin w IV heparin bridging sinus pauses on Amiodarone-stopped, - Plan * . Review of Systems - Review of Systems Respiratory: negative: Cough, Shortness of Breath, SOB with Excertion, Pleuritic Pain, Wheezing Cardiovascular: negative: chest pain, palpitations, orthopnea, paroxysmal nocturnal dyspnea, edema, light headedness - Medications/Allergies Allergies/Adverse Reactions: Allergies Allergy/AdvReac Type Severity Reaction Status Date / Time No Known Allergies Allergy Verified 05/27/19 10:36 Medications: Current Medications Acetaminophen (Tylenol) 1,000 mg PO Q6H PRN PRN Reason: Mild-Moderate Pain (1-5) Last Admin: 06/03/19 17:58 Dose: 1,000 mg Hydrocodone Bitart/Acetaminophen (Uneeda 5/325) 1 tab PO Q4H PRN PRN Reason: Moderate Pain (4-6) Hydrocodone Bitart/Acetaminophen (Uneeda 5/325) 2 tab PO Q4H PRN PRN Reason: Severe Pain (7-10) Last Admin: 06/01/19 09:17 Dose: 2 tab Albuterol Sulfate (Albuterol Sulfate) 1.25 mg NEB Q8H PRN PRN Reason: Wheezing Amiodarone HCl (Cordarone) 400 mg PO BID [facility] [place] Last Admin: 06/04/19 08:04 Dose: Not Given Aspirin (Ecotrin) 81 mg PO DAILY [facility] [place] Last Admin: 06/04/19 08:15 Dose: 81 mg Clonidine (Catapres) 0.1 mg PO Q8H PRN PRN Reason: SBP Greater Than 180 Last Admin: 06/04/19 05:29 Dose: 0.1 mg Dextrose/Water (Dextrose 50%) 25 gm SLOW IVP PRN PRN PRN Reason: Hypoglycemia Famotidine (Pepcid) 20 mg PO DAILY [facility] [place] Last Admin: 06/04/19 08:15 Dose: 20 mg Gabapentin (Neurontin) 600 mg PO TID [facility] [place] Last Admin: 07/07/19 17:36 Dose: Not Given Gabapentin (Neurontin) 100 mg PO TID [facility] [place] Last Admin: 06/04/19 17:36 Dose: Not Given Glucagon (Glucagon) 1 mg IM PRN PRN PRN Reason: Hypoglycemia Heparin Sodium (Porcine) (Heparin 1,000 Units/Ml (10 Ml)) 4,000 units SLOW IVP ASDIR [facility] [place]; Protocol Last Admin: 05/29/19 19:10 Dose: 4 ml Dextrose/Water (D5w) 1,000 mls @ 0 mls/hr IV .Q0M PRN PRN Reason: Hypoglycemia Heparin Sodium/Dextrose (Heparin 25,000 Units/D5w 500 Ml) 500 mls @ 0 mls/hr IVPB INF [facility] [place]; Protocol Last Admin: 05/29/19 23:44 Dose: 500 mls Insulin Glargine 5 units/ (Miscellaneous Medication) 0.05 mls @ 0 mls/hr SC HS SHIVA Insulin Human Lispro (Humalog) 0 units SC .BEDTIME SLIDING SC PRN PRN Reason: Bedtime Correctional Scale Last Admin: 06/03/19 20:57 Dose: 5 unit Insulin Human Lispro (Humalog) 0 units SC .MILD SLIDING SCALE PRN PRN Reason: Mild Correctional Scale Last Admin: 06/04/19 17:34 Dose: 5 units Metoclopramide HCl (Reglan) 5 mg IVP Q6H PRN PRN Reason: Nausea/Vomiting Last Admin: 06/01/19 16:11 Dose: 5 mg Morphine Sulfate (Morphine) 2 mg SLOW IVP Q4H PRN PRN Reason: Mild-Moderate Pain (1-5) Morphine Sulfate (Morphine) 4 mg SLOW IVP Q4H PRN PRN Reason: Moderate to Severe Pain (6-10) Last Admin: 06/01/19 09:45 Dose: 4 mg Nifedipine (Procardia Xl) 60 mg PO DAILY [facility] [place] Last Admin: 06/04/19 08:16 Dose: 60 mg Nitroglycerin (Nitrostat) 0.4 mg SL Q5MIN PRN PRN Reason: Chest Pain Last Admin: 05/31/19 17:31 Dose: 0.4 mg Polyethylene Glycol (Miralax) 17 gm PO HS PRN PRN Reason: Constipation Senna/Docusate Sodium (Senokot S) 1 tab PO BID [facility] [place] Last Admin: 06/04/19 08:16 Dose: Not Given Throat Lozenges (Cepastat Lozenges) 1 negin PO Q2H PRN PRN Reason: Sore Throat Last Admin: 05/30/19 16:36 Dose: 1 negin
[2019-06-04] MEDS: Insulin Glargine 5 UNITS in Pre-Filled Syringe 1 EACH SC SCH (21:20)
[2019-06-04] MEDS: Nitroglycerin 0.4 MG TAB (25 Tab Bottle) SL PRN ×3 (22:09→22:21)
[2019-06-04] MEDS: Morphine 2 MG/ML SYRINGE SLOW IVP PRN (22:23)
[2019-06-05] MEDS: cloNIDine 0.1 MG TAB PO PRN ×2 (02:08→13:18)
[2019-06-05] MEDS: Morphine 2 MG/ML SYRINGE SLOW IVP PRN (04:17)
[2019-06-05] MEDS: Nitroglycerin 0.4 MG TAB (25 Tab Bottle) SL PRN (04:18)
[2019-06-05] MEDS: HumaLOG 300 UNITS/3 ML VIAL SC PRN ×4 (05:58→23:25)
[2019-06-05 06:30] LABS: #Eosinphils 0.2 thou/uL (0.0-0.7); #Lymphocytes 0.8 thou/uL (1.20-3.40); #Monocytes 0.5 thou/uL (0.11-0.59); #Neutrophils 5.1 thou/uL (1.40-6.50); %Basophils 0.1 % (0.0-1.0); %Eosinophils 2.6 % (0.0-10.0); %Lymphocytes 11.8 % (21.0-51.0); %Neutrophils 77.5 % (42.0-75.0); Hemoglobin 11.2 g/dL (14.0-18.0); Mean Corpuscular HGB CONC 34.5 g/dL (32.0-36.0); Mean Corpuscular Hemoglobin 29.3 pg (27.0-31.0); Mean Corpuscular Volume 84.8 fL (78.0-98.0); Mean Platelet Volume 6.3 fL (7.4-10.4); Platelet Count 322 thou/uL (130-400); RBC Distribution Width 12.7 % (11.5-14.5); Red Blood Cell (RBC) Count 3.81 mill/uL (4.70-6.10); White Blood Cell (WBC) Count 6.6 thou/uL (4.8-10.8)
[2019-06-05 06:45] LABS: Anion Gap 15 mmol/L (10-20); BUN (Urea Nitrogen) 56 mg/dL (8.4-25.7); BUN/Creatinine Ratio 10.53; Calc. Creatinine Clearance 45 mL/min (70-130); Calcium 8.8 mg/dL (7.8-10.44); Carbon Dioxide 22 mmol/L (22-29); Chloride 105 mmol/L (98-107); Estimated GFR-MDRD 11; Glucose 295 mg/dL (70-105); Potassium 4.6 mmol/L (3.5-5.1); Sodium 137 mmol/L (136-145)
[2019-06-05] MEDS: Gabapentin 300 MG CAP PO SCH ×3 (10:04→20:26)
[2019-06-05] MEDS: Gabapentin 100 MG CAP PO SCH ×3 (10:04→20:26)
[2019-06-05] MEDS: Amiodarone 200 MG TAB PO SCH ×2 (10:04→20:27)
[2019-06-05] MEDS: Senokot S 8.6-50 MG TAB PO SCH ×2 (10:06→20:27)
[2019-06-05] MEDS: Aspirin 81 mg Enteric Coated Tablet PO SCH (10:07)
[2019-06-05] MEDS: NIFEdipine XL 60 MG TAB PO SCH (10:07)
[2019-06-05] MEDS: Famotidine 20 MG TAB PO SCH (10:08)
--- NOTE | 2019-06-05 11:27 | PRG ---
DATE OF SERVICE: 06/05/2019 SUBJECTIVE: Patient was seen and examined at bedside and overnight events noted. Patient denies any shortness of breath or chest pain or palpitation. No history of nausea or vomiting or diarrhea or fever or chills or cramps. OBJECTIVE: GENERAL: Morbidly obese male, in no apparent distress. VITAL SIGNS: Temperature 91, pulse 77 respiratory rate 18, blood pressure 175/89. HEENT: Atraumatic, normocephalic. Oral mucosa is moist NECK: Supple. CARDIOVASCULAR: S1, S2 heard. Rate and rhythm regular. RESPIRATORY: Clear to auscultation. GASTROINTESTINAL: Abdomen is soft. MUSCULOSKELETAL: No tenderness. No edema. DERMATOLOGIC: No skin rash. NEUROLOGIC: Alert and awake and oriented X3. No focal neurologic deficits. Moving all the extremities. PSYCHIATRIC: Mood and affect normal. LABORATORY DATA: Potassium is 4.6, BUN 56, creatinine 5.2. ASSESSMENT AND PLAN: 1. Acute kidney injury on chronic kidney disease stage 3. We will monitor renal function, seems like it is better. 2. Edema, controlled. 3. Hypertension, stable. 4. Anemia. Monitor hemoglobin. 5. Labs are better. Avoid nephrotoxins. We will follow. Job ID: [id number]
--- NOTE | 2019-06-05 14:09 | EKG ---
Test Reason : STAT Blood Pressure : / mmHG Vent. Rate : 130 BPM Atrial Rate : 260 BPM P-R Int : 000 ms QRS Dur : 092 ms QT Int : 304 ms P-R-T Axes : 256 004 021 degrees QTc Int : 447 ms Atrial flutter with 2:1 A-V conduction Low voltage QRS Incomplete right bundle branch block Septal infarct , age undetermined cannot be excluded Abnormal ECG Confirmed by ROLANDO ISRAEL ([id number]) on 06/05/2019 2:09:10 PM Referred By: Confirmed By:ROLANDO ISRAEL
--- NOTE | 2019-06-05 17:37 | PDOC.CTH ---
Cardiology Progress Note - Subjective He had a run of sustained Aflutter last night, very symptomatic With HR's in the 150's. HE was started on amiodaorne and he had epiosodes of bradycardia wand 3 second pauses so he had his amiodarone stopped. - Objective Vital Signs Temp Pulse BP BP Pulse Ox 06/05/19 15:03 97.4 F L 06/05/19 13:47 66 178/86 H 06/05/19 13:18 193/113 H 06/05/19 11:12 98.7 F 06/05/19 10:07 76 170/72 H 06/05/19 08:00 96 06/05/19 07:25 98.1 F Admit Weight 399 lb 7.642 oz Weight 445 lb 1.813 oz 06/04/19 06/05/19 06/06/19 06:59 06:59 06:59 Intake Total 2920 4300 Output Total 5330 7590 Balance -2410 -3290 - Physical Examination General/Neuro: alert & oriented x3, NAD Neck: no JVD present Lungs: CTA, unlabored respirations Heart: RRR Abdomen: NT/ND Extremities: + edema B (1+) - Telemetry Telemetry Rhythm: NSR - Labs Result Diagrams: 06/05/19 05:55 06/05/19 05:55 Troponin/CKMB CK-MB (CK-2) 0.5 ng/mL (0-6.6) 05/27/19 07:15 Troponin I Less than 0.010 ng/mL (< 0.028) 06/04/19 03:35 - Assessment/Plan 1. Atrial flutter, s/p DCCV. recurred aflutte rovernight. 2. Large upper back abscess s/p drainage, wound-vac in place. 3. Bradycardia and 3 second pauses on amiodarone. 4. Acute renal injury. 5. Morbid obesity 6. Anemia 7. HTN PLAN: - Will re start anticoagulation with Lovenox today, this was discussed with surgery. - Will ask EP to evaluate as he continues to have runs of symptomatic atrial flutter and bradycadia on IV a,marielle, He has tolerated PO amio but had breakthrough despite PO amio. . - Will leave NPO past midnight in case EP decides to do ablation. - Will increase nifedipine top 90 mg daily and add hydralazine 25 mg TID for better BP control.
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
[2019-06-05 18:42] LABS: Hemoglobin 11.7 g/dL (14.0-18.0); Platelet Count 328 thou/uL (130-400)
[2019-06-05] MEDS: hydrALAZINE 20 MG/ML VIAL SLOW IVP PRN ×2 (18:49→23:15)
[2019-06-05] MEDS: Insulin Glargine 5 UNITS in Pre-Filled Syringe 1 EACH SC SCH (20:25)
[2019-06-05] MEDS: hydrALAZINE 25 MG TAB PO SCH (20:26)
[2019-06-05] MEDS: Heparin 10,000 UNITS/ 10 ML VIAL SLOW IVP SCH (20:29)
[2019-06-05] MEDS: Heparin 25,000 units/D5W 500 ML IVPB SCH (20:30)
[2019-06-05] MEDS: HYDROcodone/Acetaminophen 5/325 mg Tablet PO PRN (23:15)
[2019-06-06] MEDS: cloNIDine 0.1 MG TAB PO PRN (01:04)
--- NOTE | 2019-06-06 02:29 | CON ---
DATE OF CONSULTATION: 06/05/2019 HISTORY OF PRESENT ILLNESS: I am seeing Mr. 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 His problems are: 1. Recurrent atrial flutter. a. Newly found atrial flutter with rapid rates on presentation, appears to be typical isthmus dependent in morphology. b. IV amiodarone for suboptimal control and subsequent prolonged pauses at 3 seconds noted after episodic termination of atrial flutter. 2. Preserved LVEF, mild left atrial enlargement, mild TR on LVEF 60% to 65% on echo on 05/27/2019. 3. Back abscess, status post debridement. 4. Morbid obesity. 5. Diabetes. 6. Atypical chest pains. ALLERGIES: NONE NOTED. MEDICATIONS: At home included; 1. Bydureon pen. 2. Gabapentin. 3. Insulin. 4. Glipizide. SUBJECTIVE: Mr. Pryor is here admitted on the with abscess of his back. He was interviewed with Dr. Sue as well. Hence, rapid atrial flutter is noted. He did undergo evaluation with a normal echocardiogram. Eventually, a KIARRA-guided cardioversion was performed first and amiodarone was initiated. He remained in sinus rhythm, but for the last 2 days, his atrial flutter has started recurring with rapid rates. IV amiodarone had to be stopped due to marked pauses after episodic conversion from atrial flutter to sinus rhythm. Episodes are highly symptomatic, so far he has not passed out from bradyarrhythmias. He continues to improve after his debridement procedure, currently vital signs are normalizing. No fever, chills, or cough. No stroke-like symptoms. No neurological deficits. No PND or orthopnea. He was started on heparin. Rest of 12-point systems otherwise unremarkable. PAST MEDICAL HISTORY: As above. SOCIAL HISTORY: The patient denies smoking, EtOH, or drug abuse FAMILY HISTORY: Not contributory. OBJECTIVE DATA: VITAL SIGNS: Blood pressure 187/105, heart rate 64, respiration 20, temperature is 97.4 degrees Fahrenheit. GENERAL: Morbidly obese man. His weight is 445 pounds. NECK: Supple. Jugular veins not distended. CHEST: Coarse without crackles. HEART: Heart sounds are regular, but distant. I do not hear murmur or gallop. PMI is nonpalpable. ABDOMEN: Benign. Bowel sounds positive. EXTREMITIES: Lower extremities without edema, clubbing, or cyanosis. Pulses are adequate. NEUROLOGIC: The patient is nonfocal. MUSCULOSKELETAL: Without joint swelling or deformity. SKIN: Without rash. DATABASE: EKG reveals on May 27 an atrial flutter, which appears to be typical isthmus dependent in morphology. Subsequent EKGs from June 02 revealed sinus rhythm after cardioversion. Telemetry strip seems to be also revealing typical occasionally 2:1 conducted atrial flutter. Occasional pauses are documented on telemetry strips up to 3.2 seconds. LABORATORY DATA: White cell count is 6.6, hemoglobin 11.2, platelet count 322. Sodium 137, potassium 4.6, BUN is 56, creatinine is 5.32. ASSESSMENT AND PLAN: Mr. Pryor is a 53-year-old man with history of diabetes, morbid obesity, who has had a back abscess requiring surgery. He also had recurrent atrial flutter despite newly initiated atrial flutter. We have discussed potential treatment options. Continued antibiotic management is difficult due to development of bradyarrhythmias. Atrial flutter ablation could be considered, somewhat poor candidate due to his morbid obesity. We will make arrangements though to have this happen. I discussed the rationale for procedure, risks, benefits of the procedure. He understands the risk of infection, bleeding, pneumothorax, tamponade, device, stroke recurrence, and recurrence of atrial fibrillation even after flutter ablation as well. He is willing to proceed. We will schedule him in a near date. Thank you for allowing me to participate in the care of this patient. Job ID: [id number]
[2019-06-06] MEDS: hydrALAZINE 20 MG/ML VIAL SLOW IVP PRN ×3 (05:57→23:11)
[2019-06-06] MEDS: HumaLOG 300 UNITS/3 ML VIAL SC PRN ×3 (05:58→20:27)
[2019-06-06] MEDS: Metoclopramide HCl 10 MG/2 ML VIAL IVP PRN ×2 (08:20→20:26)
[2019-06-06] MEDS: Amiodarone 200 MG TAB PO SCH ×2 (10:36→20:25)
[2019-06-06] MEDS: hydrALAZINE 25 MG TAB PO SCH ×4 (10:36→20:25)
[2019-06-06] MEDS: NIFEdipine XL 90 MG TAB PO SCH (10:37)
[2019-06-06] MEDS: Gabapentin 300 MG CAP PO SCH (10:37)
[2019-06-06] MEDS: Senokot S 8.6-50 MG TAB PO SCH ×2 (10:37→20:26)
[2019-06-06] MEDS: Aspirin 81 mg Enteric Coated Tablet PO SCH (10:37)
[2019-06-06] MEDS: Gabapentin 100 MG CAP PO SCH ×3 (10:37→20:25)
[2019-06-06] MEDS: Famotidine 20 MG TAB PO SCH (10:37)
[2019-06-06] MEDS: Heparin 10,000 UNITS/ 10 ML VIAL SLOW IVP SCH ×2 (11:03→18:59)
[2019-06-06] MEDS ORDERED: Heparin 10,000 UNITS/1 ML VIAL ONE (14:02)
[2019-06-06] MEDS ORDERED: Lidocaine 1% (PF) 30 ML VIAL ONE (14:10)
--- NOTE | 2019-06-06 14:17 | PRG ---
DATE OF SERVICE: 06/06/2019 SUBJECTIVE: Patient was seen and examined at bedside and overnight events noted. Patient denies any shortness of breath or chest pain or palpitation. No history of nausea or vomiting or diarrhea or fever or chills or cramps. OBJECTIVE: GENERAL: This is a morbidly obese male, in no apparent distress. VITAL SIGNS: Temperature 97.4. Pulse 72. Respiratory rate 18. Blood pressure 186/77. HEENT: Atraumatic, normocephalic. Oral mucosa is moist NECK: Supple. CARDIOVASCULAR: S1, S2 heard. Rate and rhythm regular. RESPIRATORY: Clear to auscultation. GASTROINTESTINAL: Abdomen is soft. MUSCULOSKELETAL: No tenderness. No edema. DERMATOLOGIC: No skin rash. NEUROLOGIC: Alert and awake and oriented X3. No focal neurologic deficits. Moving all the extremities. PSYCHIATRIC: Mood and affect normal. LABORATORY DATA: Not done today. ASSESSMENT AND PLAN: 1. Acute kidney injury. We will repeat labs. 2. Chronic kidney disease, stage 3. 3. Anemia. 4. Hypertension. 5. Edema, controlled. Monitor urine output, which seems to be stable at this point. We will recheck labs. Avoid nephrotoxins. Medication list reviewed. Job ID: [id number]
--- NOTE | 2019-06-06 16:21 | PDOC.PN ---
- Subjective Encounter Start Date: 06/06/19 Encounter Start Time: 16:19 Subjective: wants to go home -: going to [facility] today - Objective Resuscitation Status - Order Detail: 05/27/19 08:50 Resuscitation Status Routine Resuscitation Status: FULL: Full Resuscitation MAR Reviewed: Yes Vital Signs & Weight: Vital Signs (12 hours) Temp Pulse BP Pulse Ox 06/06/19 16:01 130 H 171/98 H 06/06/19 15:45 97.5 F L 06/06/19 11:04 97.4 F L 06/06/19 10:37 207/98 H 06/06/19 10:36 74 169/79 H 06/06/19 08:00 95 06/06/19 07:33 97.1 F L 06/06/19 05:57 207/98 H Weight Admit Weight 399 lb 7.642 oz Weight 425 lb 7.874 oz Most Recent Monitor Data Heart Rate from ECG 106 NIBP 155/110 NIBP BP-Mean 125 Respiration from ECG 15 SpO2 93 I&O: 06/05/19 06/06/19 06/07/19 06:59 06:59 06:59 Intake Total 4300 5370 Output Total 7564 7360 Result Diagrams: 06/05/19 18:17 06/05/19 05:55 Additional Labs: Accuchecks 06/06/19 06/06/19 06/06/19 15:37 10:44 08:39 POC Glucose 248 H 292 H 271 H 06/06/19 06/05/19 06/05/19 05:51 23:27 16:09 POC Glucose 336 H 370 H 344 H Microbiology 05/30/19 08:36 Back - Tissue Bacterial Culture - Final 05/30/19 08:36 Back - Tissue Anaerobic Culture - Final Anaerobic cocci 05/30/19 08:36 Back - Tissue Acid Fast Bacilli Smear - Final 05/30/19 08:22 Back - E swab Bacterial Culture - Final 05/30/19 08:22 Back - E swab Anaerobic Culture - Final NO ANAEROBES ISOLATED IN 5 DAYS 05/30/19 08:22 Back - E swab Acid Fast Bacilli Smear - Final 05/30/19 08:22 Back - E swab Acid Fast Bacilli Culture - Final Laboratory Tests 06/30/19 07/02/19 07/03/19 06:00 03:30 08:50 Creatinine 1.17 0.96 3.03 H 05/31/19 06/01/19 06/02/19 18:21 07:46 04:33 Creatinine 3.66 H 4.20 H 4.98 H 06/03/19 06/04/19 06/05/19 04:26 05:45 05:55 Creatinine 5.47 H 5.52 H 5.32 H Phys Exam - Physical Examination Constitutional: NAD HEENT: PERRLA, moist MMs, sclera anicteric, oral pharynx no lesions Neck: no nodes, no JVD, supple, full ROM Respiratory: no wheezing, no rales, no rhonchi, clear to auscultation bilateral Cardiovascular: RRR, no significant murmur, no rub Gastrointestinal: soft, non-tender, no distention, positive bowel sounds Musculoskeletal: no edema, pulses present Neurological: non-focal, normal sensation, moves all 4 limbs Psychiatric: normal affect, A&O x 3 Skin: no rash Deviation from normal: back in bandages Dx/Plan (1) Atrial flutter with rapid ventricular response Code(s): I48.92 - UNSPECIFIED ATRIAL FLUTTER Status: Acute Comment: Converted to SR,sinus pauses on Amiodarone-stopped, ablation (2) Abscess of back Code(s): L02.212 - CUTANEOUS ABSCESS OF BACK [ANY PART, EXCEPT BUTTOCK] Status : Acute Comment: s/p excisional debridement, marked improvement.?not on antibiotics anymore-notified ID (3) Acute renal failure superimposed on stage 3 chronic kidney disease Code(s): N17.9 - ACUTE KIDNEY FAILURE, UNSPECIFIED; N18.3 - CHRONIC KIDNEY DISEASE, STAGE 3 (MODERATE) Status: Acute Qualifiers: Acute renal failure type: with acute tubular necrosis Qualified Code(s): N17.0 - Acute kidney failure with tubular necrosis; N18.3 - Chronic kidney disease, stage 3 (moderate) Comment: Appears multifactorial and iatrogenic, slow improvement, avoid nephrotoxic agents and limit contrast exposure, serial creatinine (4) Diabetes mellitus Code(s): E11.9 - TYPE 2 DIABETES MELLITUS WITHOUT COMPLICATIONS Status: Chronic Qualifiers: Diabetes mellitus chcf insulin use: with public space attendant use Diabetes mellitus complication status: with neurologic complications Diabetes mellitus complication detail: with polyneuropathy Comment: b.lood sugars high, start low dose Lantus (5 units HS), monotor accuchecks, continue insulin sliding scale. (5) Tobacco abuse Code(s): Z72.0 - TOBACCO USE Status: Chronic Comment: Tobacco cessation resources (6) Morbid obesity with BMI of 50.0-59.9, adult Code(s): E66.01 - MORBID (SEVERE) OBESITY DUE TO EXCESS CALORIES; Z68.43 - BODY MASS INDEX (BMI) 50-59.9, ADULT Status: Chronic - Plan DVT proph w/SCDs ablation today.? need for chcf OAC post procedure.yonis Dee as -: uninsured if cardiology & REP recommend OAC -: HD stable -: recheck Cr in am. -: BP high.meds adjusted yesterday w increased Imdue and new hydralazine * . wound care to be done by post DC * * am labs Review of Systems - Review of Systems Constitutional: weakness Respiratory: negative: Cough, Dry, Shortness of Breath, Hemoptysis, SOB with Excertion, Pleuritic Pain, Sputum, Wheezing Cardiovascular: negative: chest pain, palpitations, orthopnea, paroxysmal nocturnal dyspnea, edema, light headedness, other Gastrointestinal: negative: Nausea, Vomiting, Abdominal Pain, Diarrhea, Constipation, Melena, Hematochezia, Other Genitourinary: negative: Dysuria, Frequency, Incontinence, Hematuria, Retention , Other Musculoskeletal: negative: Neck Pain, Shoulder Pain, Arm Pain, Back Pain, Hand Pain, Leg Pain, Foot Pain, Other Neurological: negative: Weakness, Numbness, Incoordination, Change in Speech, Confusion, Seizures, Other - Medications/Allergies Allergies/Adverse Reactions: Allergies Allergy/AdvReac Type Severity Reaction Status Date / Time No Known Allergies Allergy Verified 05/27/19 10:36 Medications: Current Medications Acetaminophen (Tylenol) 1,000 mg PO Q6H PRN PRN Reason: Mild-Moderate Pain (1-5) Last Admin: 06/03/19 17:58 Dose: 1,000 mg Albuterol Sulfate (Albuterol Sulfate) 1.25 mg NEB Q8H PRN PRN Reason: Wheezing Amiodarone HCl (Cordarone) 400 mg PO BID [facility] Last Admin: 06/06/19 10:36 Dose: Not Given Aspirin (Ecotrin) 81 mg PO DAILY [facility] Last Admin: 06/06/19 10:37 Dose: Not Given Clonidine (Catapres) 0.1 mg PO Q8H PRN PRN Reason: SBP Greater Than 180 Last Admin: 06/06/19 01:04 Dose: 0.1 mg Dextrose/Water (Dextrose 50%) 25 gm SLOW IVP PRN PRN PRN Reason: Hypoglycemia Famotidine (Pepcid) 20 mg PO DAILY [facility] Last Admin: 06/06/19 10:37 Dose: Not Given Gabapentin (Neurontin) 100 mg PO TID [facility] Last Admin: 06/06/19 14:38 Dose: Not Given Glucagon (Glucagon) 1 mg IM PRN PRN PRN Reason: Hypoglycemia Heparin Sodium (Porcine) (Heparin 1,000 Units/Ml (10 Ml)) 4,000 units SLOW IVP ASDIR [facility]; Protocol Last Admin: 06/06/19 11:03 Dose: 4,000 units Hydralazine HCl (Apresoline) 25 mg PO TID [facility] Last Admin: 06/06/19 16:01 Dose: 25 mg Hydralazine HCl (Apresoline) 10 mg SLOW IVP Q4H PRN PRN Reason: SBP Greater Than 170 Last Admin: 06/06/19 05:57 Dose: 10 mg Dextrose/Water (D5w) 1,000 mls @ 0 mls/hr IV .Q0M PRN PRN Reason: Hypoglycemia Insulin Glargine 5 units/ (Miscellaneous Medication) 0.05 mls @ 0 mls/hr SC HS [facility] Last Admin: 06/05/19 20:25 Dose: 0.05 mls Heparin Sodium/Dextrose (Heparin 25,000 Units/D5w 500 Ml) 500 mls @ 0 mls/hr IVPB INF [facility]; Protocol Last Admin: 06/05/19 20:30 Dose: 500 mls Insulin Human Lispro (Humalog) 0 units SC .BEDTIME SLIDING SC PRN PRN Reason: Bedtime Correctional Scale Last Admin: 06/05/19 23:25 Dose: 5 unit Insulin Human Lispro (Humalog) 0 units SC .MILD SLIDING SCALE PRN PRN Reason: Mild Correctional Scale Last Admin: 06/06/19 05:58 Dose: 5 units Metoclopramide HCl (Reglan) 5 mg IVP Q6H PRN PRN Reason: Nausea/Vomiting Last Admin: 06/06/19 08:20 Dose: 5 mg Morphine Sulfate (Morphine) 2 mg SLOW IVP Q4H PRN PRN Reason: Mild-Moderate Pain (1-5) Last Admin: 06/05/19 04:17 Dose: 2 mg Morphine Sulfate (Morphine) 4 mg SLOW IVP Q4H PRN PRN Reason: Moderate to Severe Pain (6-10) Last Admin: 06/01/19 09:45 Dose: 4 mg Nifedipine (Procardia Xl) 90 mg PO DAILY [facility] Last Admin: 06/06/19 10:37 Dose: Not Given Nitroglycerin (Nitrostat) 0.4 mg SL Q5MIN PRN PRN Reason: Chest Pain Last Admin: 06/05/19 04:18 Dose: 0.4 mg Polyethylene Glycol (Miralax) 17 gm PO HS PRN PRN Reason: Constipation Senna/Docusate Sodium (Senokot S) 1 tab PO BID [facility] Last Admin: 06/06/19 10:37 Dose: Not Given Throat Lozenges (Cepastat Lozenges) 1 negin PO Q2H PRN PRN Reason: Sore Throat Last Admin: 05/30/19 16:36 Dose: 1 negin
--- NOTE | 2019-06-06 16:45 | PRG ---
DATE OF SERVICE: 06/06/2019 SUBJECTIVE: Mr. Pryor is here with recurrent atrial flutter with rapid rates despite of IV amiodarone. He had some improvement on the episodes overnight, but still has episodes with rapid rates. He had some gonzalo arrhythmias before. Denies passing out. No stroke-like symptoms. No neurological deficits. No fever, chills, or cough. Rest of 12-point review of system otherwise unremarkable. OBJECTIVE: VITAL SIGNS: Blood pressure is 155/110, heart rate 106, respirations 12. The patient is afebrile. GENERAL: Alert and oriented man, in no apparent distress with markedly elevated BMI. NECK: Supple. Jugular veins not distended. CHEST: Coarse without crackles. HEART: Sounds are regular to rate and rhythm. No murmur or gallop. ABDOMEN: Benign. Bowel sounds positive. EXTREMITIES: Lower extremities with no edema, clubbing, or cyanosis . LABORATORY DATA: Glucose over 248. ASSESSMENT AND PLAN: Mr. Pryor is a 53-year-old man, morbidly obese, who has acute on chronic renal insufficiency, also seems to have recurrent atrial flutter with difficult rate control or suppression even with IV amiodarone. I discussed with him it is reasonable to consider cavotricuspid isthmus vs PVAI ablation and being on anticoagulation with IV heparin and intermittent atrial fibrillation his CVA risk is relatively low and no KIARRA is planned. Risks and benefits of the procedure were discussed with him. Although he was n.p.o., we have to postpone the procedure due to emergency and lack of anesthesia cover. we will reschedule it for tomorrow. Thank you again for letting me participate in the care of this patient. Job ID: [id number] [facility]
[2019-06-06] MEDS ORDERED: Digoxin 0.5 MG/2 ML AMP ONE (17:07)
[2019-06-06] MEDS ORDERED: Digoxin 0.5 MG/2 ML AMP SLOW IVP SCH (17:15)
--- NOTE | 2019-06-06 18:17 | PDOC.CTH ---
Cardiology Progress Note - Subjective He saw EP and is scheduled to have an ablation done likely tomorrow. He went back in to aflutter HR in the 130's and he broke after iv digoxin given. BP has been high all day. - Objective Vital Signs Temp Pulse BP Pulse Ox 06/06/19 17:17 112 H 06/06/19 17:10 112 H 06/06/19 16:01 130 H 171/98 H 06/06/19 15:45 97.5 F L 06/06/19 11:04 97.4 F L 06/06/19 10:37 207/98 H 06/06/19 10:36 74 169/79 H 06/06/19 08:00 95 06/06/19 07:33 97.1 F L Admit Weight 399 lb 7.642 oz Weight 425 lb 7.874 oz 06/05/19 06/06/19 06/07/19 06:59 06:59 06:59 Intake Total 4300 5370 1500 Output Total 5818 2296 7958 Balance -2088 -5199 -7422 - Physical Examination General/Neuro: alert & oriented x3, NAD Neck: no JVD present Lungs: CTA, unlabored respirations Heart: RRR Abdomen: NT/ND Extremities: + edema B (1+) - Telemetry Telemetry Rhythm: NSR, Aflutter - Labs Result Diagrams: 06/05/19 18:17 06/05/19 05:55 Troponin/CKMB CK-MB (CK-2) 0.5 ng/mL (0-6.6) 05/27/19 07:15 Troponin I Less than 0.010 ng/mL (< 0.028) 06/04/19 03:35 - Assessment/Plan 1. Atrial flutter, s/p DCCV. recurred aflutte rovernight. 2. Large upper back abscess s/p drainage, wound-vac in place. 3. Bradycardia and 3 second pauses on amiodarone. 4. Acute renal injury. 5. Morbid obesity 6. Anemia 7. HTN PLAN: - Continue anticoagulation with heparin. - EP to take for ablation tomorrow. - Will increase hydralazine to 50 mg TID.
[2019-06-06] MEDS: Labetalol HCl 100 MG/20 ML VIAL SLOW IVP SCH ×2 (18:19→20:24)
[2019-06-06] MEDS: Nitroglycerin 0.4 MG TAB (25 Tab Bottle) SL PRN (18:20)
[2019-06-06] MEDS: Insulin Glargine 5 UNITS in Pre-Filled Syringe 1 EACH SC SCH (20:26)
[2019-06-06 22:06] LABS: Hemoglobin 11.8 g/dL (14.0-18.0); Platelet Count 309 thou/uL (130-400)
[2019-06-06] MEDS: Morphine 2 MG/ML SYRINGE SLOW IVP PRN (23:10)
[2019-06-07] MEDS: cloNIDine 0.1 MG TAB PO PRN ×2 (00:10→22:09)
[2019-06-07] MEDS: Heparin 25,000 units/D5W 500 ML IVPB SCH (00:14)
[2019-06-07] MEDS: Heparin 10,000 UNITS/ 10 ML VIAL SLOW IVP SCH (00:53)
[2019-06-07] MEDS: HumaLOG 300 UNITS/3 ML VIAL SC PRN ×2 (05:32→20:41)
[2019-06-07] MEDS: hydrALAZINE 20 MG/ML VIAL SLOW IVP PRN ×2 (05:33→17:59)
[2019-06-07 06:00] LABS: Hemoglobin 11.7 g/dL (14.0-18.0); Platelet Count 357 thou/uL (130-400)
[2019-06-07 06:20] LABS: Anion Gap 15 mmol/L (10-20); BUN (Urea Nitrogen) 53 mg/dL (8.4-25.7); Calc. Creatinine Clearance 53 mL/min (70-130); Calcium 8.9 mg/dL (7.8-10.44); Carbon Dioxide 26 mmol/L (22-29); Chloride 102 mmol/L (98-107); Estimated GFR-MDRD 14; Glucose 311 mg/dL (70-105); Potassium 4.8 mmol/L (3.5-5.1); Sodium 138 mmol/L (136-145)
[2019-06-07] MEDS: hydrALAZINE 25 MG TAB PO SCH ×3 (09:41→20:24)
[2019-06-07] MEDS: Famotidine 20 MG TAB PO SCH (09:44)
[2019-06-07 10:14] LABS: Hemoglobin 11.8 g/dL (14.0-18.0); Platelet Count 353 thou/uL (130-400)
[2019-06-07] MEDS: Senokot S 8.6-50 MG TAB PO SCH ×2 (11:15→20:25)
[2019-06-07] MEDS: NIFEdipine XL 90 MG TAB PO SCH (11:15)
[2019-06-07] MEDS: Amiodarone 200 MG TAB PO SCH ×2 (11:15→20:23)
[2019-06-07] MEDS: Gabapentin 100 MG CAP PO SCH ×3 (11:15→20:23)
[2019-06-07] MEDS: Aspirin 81 mg Enteric Coated Tablet PO SCH (11:15)
--- NOTE | 2019-06-07 11:45 | PRG ---
DATE OF SERVICE: 06/07/2019 SUBJECTIVE: Patient was seen and examined at bedside and overnight events noted. Patient denies any shortness of breath or chest pain or palpitation. No history of nausea or vomiting or diarrhea or fever or chills or cramps. OBJECTIVE: GENERAL: This is an obese male, in no apparent distress. VITAL SIGNS: Temperature 97.0, pulse 78, respirations 16, blood pressure 173/76. HEENT: Atraumatic, normocephalic. Oral mucosa is moist NECK: Supple. CARDIOVASCULAR: S1, S2 heard. Rate and rhythm regular. RESPIRATORY: Clear to auscultation. GASTROINTESTINAL: Abdomen is soft. MUSCULOSKELETAL: No tenderness. No edema. DERMATOLOGIC: No skin rash. NEUROLOGIC: Alert and awake and oriented X3. No focal neurologic deficits. Moving all the extremities. PSYCHIATRIC: Mood and affect normal. LABORATORY DATA: Potassium 4.8, BUN is 53, creatinine is 4.3. ASSESSMENT AND PLAN: 1. Acute kidney injury on chronic kidney disease stage 3. Renal function is better at 4.3 today from 5.3. 2. Anemia. Monitor hemoglobin. 3. Hypertension, stable. 4. Edema, controlled. 5. Renal function with improvement. Monitor labs. We will follow. Job ID: [id number]
[2019-06-07] MEDS ORDERED: Heparin 10,000 UNITS/1 ML VIAL ONE ×3 (12:02→14:37)
[2019-06-07] MEDS ORDERED: Lidocaine 1% (PF) 30 ML VIAL ONE (12:02)
[2019-06-07] MEDS ORDERED: Fentanyl 100 MCG/2 ML VIAL ONE ×2 (13:00→16:24)
[2019-06-07] MEDS ORDERED: DOPamine 400 MG/D5W 250 ML 250 ML ONE (13:52)
[2019-06-07] MEDS ORDERED: Heparin 25,000 units/D5W 500 ML ONE (14:14)
--- NOTE | 2019-06-07 14:38 | PDOC.PN ---
- Subjective Encounter Start Date: 06/07/19 Encounter Start Time: 14:36 Subjective: no new complaints -: wants to go home - Objective Resuscitation Status - Order Detail: 05/27/19 08:50 Resuscitation Status Routine Resuscitation Status: FULL: Full Resuscitation MAR Reviewed: Yes Vital Signs & Weight: Vital Signs (12 hours) Temp BP Pulse Ox 06/07/19 11:15 195/92 H 06/07/19 10:21 97.0 F L 06/07/19 09:41 195/92 H 06/07/19 08:00 96 06/07/19 07:29 97.6 F 06/07/19 05:33 195/92 H 06/07/19 03:36 97.7 F Weight Admit Weight 399 lb 7.642 oz Weight 425 lb 7.874 oz Most Recent Monitor Data Heart Rate from ECG 76 NIBP 187/87 NIBP BP-Mean 120 Respiration from ECG 24 SpO2 93 I&O: 06/06/19 06/07/19 06/08/19 06:59 06:59 06:59 Intake Total 5370 3680 Output Total 7355 7855 [facility] -1986 [facility] Result Diagrams: 06/07/19 09:59 06/07/19 05:45 Additional Labs: Accuchecks 06/07/19 06/06/19 06/06/19 10:00 20:22 16:23 POC Glucose 229 H 258 H 268 H 06/06/19 15:37 POC Glucose 248 H Microbiology 05/30/19 08:36 Back - Tissue Bacterial Culture - Final 05/30/19 08:36 Back - Tissue Anaerobic Culture - Final Anaerobic cocci 05/30/19 08:36 Back - Tissue Acid Fast Bacilli Smear - Final 05/30/19 08:22 Back - E swab Bacterial Culture - Final 05/30/19 08:22 Back - E swab Anaerobic Culture - Final NO ANAEROBES ISOLATED IN 5 DAYS 05/30/19 08:22 Back - E swab Acid Fast Bacilli Smear - Final 05/30/19 08:22 Back - E swab Acid Fast Bacilli Culture - Final Phys Exam - Physical Examination Constitutional: NAD HEENT: PERRLA, moist MMs, sclera anicteric, oral pharynx no lesions Neck: no nodes, no JVD, supple, full ROM Respiratory: no wheezing, no rales, no rhonchi, clear to auscultation bilateral Cardiovascular: RRR, no significant murmur, no rub, irregular Gastrointestinal: soft, non-tender, no distention, positive bowel sounds Musculoskeletal: no edema, pulses present Neurological: non-focal, normal sensation, moves all 4 limbs Psychiatric: normal affect, A&O x 3 Skin: no rash Dx/Plan (1) Atrial flutter with rapid ventricular response Code(s): I48.92 - UNSPECIFIED ATRIAL FLUTTER Status: Acute Comment: back in a flutter last night needing IV Digoxin sinus pauses on Amiodarone-stopped, ablation today (2) Abscess of back Code(s): L02.212 - CUTANEOUS ABSCESS OF BACK [ANY PART, EXCEPT BUTTOCK] Status : Acute Comment: s/p excisional debridement, marked improvement.?not on antibiotics anymore-notified ID (3) Acute renal failure superimposed on stage 3 chronic kidney disease Code(s): N17.9 - ACUTE KIDNEY FAILURE, UNSPECIFIED; N18.3 - CHRONIC KIDNEY DISEASE, STAGE 3 (MODERATE) Status: Acute Qualifiers: Acute renal failure type: with acute tubular necrosis Qualified Code(s): N17.0 - Acute kidney failure with tubular necrosis; N18.3 - Chronic kidney disease, stage 3 (moderate) Comment: Appears multifactorial and iatrogenic, slow improvement, avoid nephrotoxic agents and limit contrast exposure, serial creatinine (4) Diabetes mellitus Code(s): E11.9 - TYPE 2 DIABETES MELLITUS WITHOUT COMPLICATIONS Status: Chronic Qualifiers: Diabetes mellitus meterman insulin use: with jail use Diabetes mellitus complication status: with neurologic complications Diabetes mellitus complication detail: with polyneuropathy Comment: b.lood sugars high, start low dose Lantus (5 units HS), monotor accuchecks, continue insulin sliding scale. (5) Tobacco abuse Code(s): Z72.0 - TOBACCO USE Status: Chronic Comment: Tobacco cessation resources (6) Morbid obesity with BMI of 50.0-59.9, adult Code(s): E66.01 - MORBID (SEVERE) OBESITY DUE TO EXCESS CALORIES; Z68.43 - BODY MASS INDEX (BMI) 50-59.9, ADULT Status: Chronic - Plan DVT proph w/SCDs ablation today. rate controlled for now. -: may or may not need OAC post ablation-defer to cardio and EP. -: Cr better . will need close monitoring.pt requesting discharge -: cont nifedipine. hydralazine increased as BP very high.moitor -: pt educated that he will need to stay untill cleared by cardio & nephro * .ABx per ID on DC * am labs Review of Systems - Review of Systems Constitutional: negative: fever, chills, sweats, weakness, malaise, other Respiratory: negative: Cough, Dry, Shortness of Breath, Hemoptysis, SOB with Excertion, Pleuritic Pain, Sputum, Wheezing Cardiovascular: negative: chest pain, palpitations, orthopnea, paroxysmal nocturnal dyspnea, edema, light headedness, other Gastrointestinal: negative: Nausea, Vomiting, Abdominal Pain, Diarrhea, Constipation, Melena, Hematochezia, Other Genitourinary: negative: Dysuria, Frequency, Incontinence, Hematuria, Retention , Other Musculoskeletal: negative: Neck Pain, Shoulder Pain, Arm Pain, Back Pain, Hand Pain, Leg Pain, Foot Pain, Other Neurological: negative: Weakness, Numbness, Incoordination, Change in Speech, Confusion, Seizures, Other - Medications/Allergies Allergies/Adverse Reactions: Allergies Allergy/AdvReac Type Severity Reaction Status Date / Time No Known Allergies Allergy Verified 05/27/19 10:36 Medications: Current Medications Acetaminophen (Tylenol) 1,000 mg PO Q6H PRN PRN Reason: Mild-Moderate Pain (1-5) Last Admin: 06/03/19 17:58 Dose: 1,000 mg Albuterol Sulfate (Albuterol Sulfate) 1.25 mg NEB Q8H PRN PRN Reason: Wheezing Amiodarone HCl (Cordarone) 400 mg PO BID [facility] Last Admin: 06/07/19 11:15 Dose: Not Given Aspirin (Ecotrin) 81 mg PO DAILY [facility] Last Admin: 06/07/19 11:15 Dose: Not Given Clonidine (Catapres) 0.1 mg PO Q8H PRN PRN Reason: SBP Greater Than 180 Last Admin: 06/07/19 00:10 Dose: 0.1 mg Dextrose/Water (Dextrose 50%) 25 gm SLOW IVP PRN PRN PRN Reason: Hypoglycemia Famotidine (Pepcid) 20 mg PO DAILY [facility] Last Admin: 06/07/19 09:44 Dose: 20 mg Gabapentin (Neurontin) 100 mg PO TID [facility] Last Admin: 06/07/19 11:15 Dose: Not Given Glucagon (Glucagon) 1 mg IM PRN PRN PRN Reason: Hypoglycemia Heparin Sodium (Porcine) (Heparin 1,000 Units/Ml (10 Ml)) 4,000 units SLOW IVP ASDIR [facility]; Protocol Last Admin: 06/07/19 00:53 Dose: 4,000 units Hydralazine HCl (Apresoline) 10 mg SLOW IVP Q4H PRN PRN Reason: SBP Greater Than 170 Last Admin: 06/07/19 05:33 Dose: 10 mg Hydralazine HCl (Apresoline) 50 mg PO TID [facility] Last Admin: 06/07/19 09:41 Dose: 50 mg Dextrose/Water (D5w) 1,000 mls @ 0 mls/hr IV .Q0M PRN PRN Reason: Hypoglycemia Insulin Glargine 5 units/ (Miscellaneous Medication) 0.05 mls @ 0 mls/hr SC HS [facility] Last Admin: 06/06/19 20:26 Dose: 0.05 mls Heparin Sodium/Dextrose (Heparin 25,000 Units/D5w 500 Ml) 500 mls @ 0 mls/hr IVPB INF [facility]; Protocol Last Admin: 06/07/19 00:14 Dose: 500 mls Insulin Human Lispro (Humalog) 0 units SC .BEDTIME SLIDING SC PRN PRN Reason: Bedtime Correctional Scale Last Admin: 06/06/19 20:27 Dose: 3 unit Insulin Human Lispro (Humalog) 0 units SC .MILD SLIDING SCALE PRN PRN Reason: Mild Correctional Scale Last Admin: 06/07/19 05:32 Dose: 5 units Metoclopramide HCl (Reglan) 5 mg IVP Q6H PRN PRN Reason: Nausea/Vomiting Last Admin: 06/06/19 20:26 Dose: 5 mg Morphine Sulfate (Morphine) 2 mg SLOW IVP Q4H PRN PRN Reason: Mild-Moderate Pain (1-5) Last Admin: 06/06/19 23:10 Dose: 2 mg Morphine Sulfate (Morphine) 4 mg SLOW IVP Q4H PRN PRN Reason: Moderate to Severe Pain (6-10) Last Admin: 06/01/19 09:45 Dose: 4 mg Nifedipine (Procardia Xl) 90 mg PO DAILY [facility] Last Admin: 06/07/19 11:15 Dose: Not Given Nitroglycerin (Nitrostat) 0.4 mg SL Q5MIN PRN PRN Reason: Chest Pain Last Admin: 06/06/19 18:20 Dose: 0.4 mg Polyethylene Glycol (Miralax) 17 gm PO HS PRN PRN Reason: Constipation Senna/Docusate Sodium (Senokot S) 1 tab PO BID [facility] Last Admin: 06/07/19 11:15 Dose: Not Given Throat Lozenges (Cepastat Lozenges) 1 negin PO Q2H PRN PRN Reason: Sore Throat Last Admin: 05/30/19 16:36 Dose: 1 negin
[2019-06-07] MEDS ORDERED: Isoproterenol 0.2 MG/1 ML AMP ONE (15:50)
--- NOTE | 2019-06-07 15:51 | OP ---
DATE OF PROCEDURE: 06/07/2019 PROCEDURE PERFORMED: Electrophysiology study and radiofrequency ablation. REASON FOR PROCEDURE: Mr. Pryor is a 53-year-old man, who presented with sustained atrial flutter requiring transient amiodarone use, but recurrences despite were noted. He is high symptomatic, also has significant pausing after termination of each flutter episode requiring stopping amiodarone a couple of days back. DESCRIPTION OF PROCEDURE: The patient received propofol by Anesthesia specialist and general anesthesia due to morbid obesity was initiated. The right femoral venous area was prepped, draped, and anesthetized using subcutaneous lidocaine and with ultrasound guidance, the right femoral vein was cannulated x2 and two 8-Austrian short sheaths were introduced. Through this, a ThermoCool SFST catheter was advanced to the right atrium and 3D map of the right atrium, His bundle, CS and cavotricuspid isthmus were obtained. Also, a decapolar catheter was advanced to the right atrium, right ventricle, His bundle, and CS position. Pacing mapping and recording were performed in each location. Following findings were noted. The baseline sinus rhythm at cycle length 791 milliseconds. The RI was 146. The QRS 86, QT 397, AH 95, HV 48. The sinus node recovery time is 2539, corrected sinus node recovery time was 1290. AV Wenckebach cycle length was 330 milliseconds. AV conduction cycle length was at 420 milliseconds. Burst atrial pacing induced typical atrial flutter initially, which appear to be typical isthmus dependent in morphology. The cycle length was 230 milliseconds, and overdrive pacing at the cavotricuspid isthmus entrained the atrial flutter and the post pacing interval was matching the tachycardia cycle length of 230 milliseconds. Following that during atrial flutter, cavotricuspid isthmus ablation was performed, terminating atrial flutter during ablation. The proximal CS pacing was also performed, and further ablation lesions were delivered. The transisthmus time increasing from the initial 50 milliseconds to 150 milliseconds. Following that, burst atrial pacing was easy inducing atrial fibrillation. The decision was made to perform pulmonary venous isolation procedure. The left groin was accessed x2 under ultrasound guidance. An 11-Austrian sheath was introduced through which an intracardiac echocardiogram probe was advanced to the right atrium to monitor transseptal puncture in the pericardial space. Also, an 8-Austrian short sheath was introduced and through this, the decapolar catheter was advanced to the CS position. On the right side, an 8-Austrian short sheath was upgraded to SL1 sheath and after IV heparin administration, which was adjusted throughout the procedure to achieve ACT over 350, transseptal puncture was performed. A 20 pole Lasso catheter and a ThermoCool SFST catheter were advanced to the left atrium. 3D map of the left atrium obtained. Pulmonary venous isolation was performed. Esophageal temperature was monitored throughout the procedure to avoid excessive heating of the esophagus. Vein pulmonary isolation and posterior wall ablation were achieved. At the end of the case, the cavotricuspid isthmus line and pulmonary veins were rechecked on the Isuprel administration. No pericardial effusion was noted on ice and cine gram. CONCLUSION: 1. Successful cavotricuspid isthmus and pulmonary venous isolation posterior wall ablation performed. 2. Abnormal sinus node recovery time suggest sinus node disease. 3. Dual AV charley physiology present. 4. No evidence of accessory pathway. PLAN: Resume anticoagulation and monitor for recurrence of arrhythmia. Job ID: [id number]
[2019-06-07] MEDS ORDERED: SUGAMMADEX SODIUM 200 MG/2 ML VIAL ONE (16:11)
[2019-06-07] MEDS ORDERED: SUGAMMADEX SODIUM 500 MG/5 ML VIAL ONE (16:11)
[2019-06-07] MEDS ORDERED: Protamine Sulfate 50 MG/5 ML VIAL ONE (16:16)
[2019-06-07] MEDS ORDERED: Heparin 10,000 UNITS/ 10 ML VIAL ONE (16:37)
[2019-06-07] MEDS ORDERED: Vecuronium 10 MG VIAL ONE (16:37)
[2019-06-07] MEDS ORDERED: Dexamethasone 20 MG/5 ML VIAL ONE (16:37)
[2019-06-07] MEDS ORDERED: PROPOFOL 200 MG/20 ML VIAL ONE (16:37)
[2019-06-07] MEDS ORDERED: Rocuronium Bromide 10 MG/ML (10ML VIAL) ONE (16:37)
[2019-06-07] MEDS ORDERED: PHENYLEPHRINE-NS 100 MCG/ML 10 ML SYRINGE ONE (16:37)
[2019-06-07] MEDS ORDERED: Lidocaine 1% PF 5 ML VIAL ONE (16:37)
--- NOTE | 2019-06-07 18:33 | PDOC.CTH ---
Cardiology Progress Note - Subjective He had his ablation today. Had both isthmus ablation for flutter and PVI for easily inducible afib. - Objective Vital Signs Temp BP Pulse Ox 06/07/19 17:59 195/92 H 06/07/19 16:11 195/92 H 06/07/19 11:15 195/92 H 06/07/19 10:21 97.0 F L 06/07/19 09:41 195/92 H 06/07/19 08:00 96 06/07/19 07:29 97.6 F Admit Weight 399 lb 7.642 oz Weight 425 lb 7.874 oz 06/06/19 06/07/19 06/08/19 06:59 06:59 06:59 Intake Total 0922 7220 Output Total 6825 2071 8074 Balance -6923 -6566 -6082 - Physical Examination General/Neuro: alert & oriented x3, NAD Neck: no JVD present Lungs: unlabored respirations Heart: RRR Abdomen: NT/ND Extremities: + edema B (1+) - Telemetry Telemetry Rhythm: NSR - Labs Result Diagrams: 06/07/19 09:59 06/07/19 05:45 Troponin/CKMB CK-MB (CK-2) 0.5 ng/mL (0-6.6) 05/27/19 07:15 Troponin I Less than 0.010 ng/mL (< 0.028) 06/04/19 03:35 - Assessment/Plan 1. Atrial flutter/ Atrial fibrillation 2. Large upper back abscess s/p drainage. 3. Sinus node dysfunction. 4. Acute renal injury. 5. Morbid obesity 6. Anemia 7. HTN PLAN: - S/P PVI for easily inducible afib and isthmus ablation for flutter. - Will likely need warfarin for stroke prophylaxis due to cost.
[2019-06-07 18:42] LABS: INR-International Normal Ratio 1.3; Prothrombin Time 15.8 SEC (12.0-14.7)
[2019-06-07] MEDS: Insulin Glargine 5 UNITS in Pre-Filled Syringe 1 EACH SC SCH (20:41)
[2019-06-07] MEDS: Acetaminophen 500 MG TAB PO PRN (20:52)
[2019-06-07] MEDS: Warfarin Sodium 10 MG TAB PO SCH (21:56)
[2019-06-08] MEDS: Heparin 25,000 units/D5W 500 ML IVPB SCH ×2 (00:17→15:50)
[2019-06-08] MEDS: hydrALAZINE 20 MG/ML VIAL SLOW IVP PRN (01:16)
[2019-06-08] MEDS ORDERED: cloNIDine 0.1 MG TAB PO SCH (02:15)
[2019-06-08] MEDS: NIFEdipine XL 90 MG TAB PO SCH (04:24)
[2019-06-08] MEDS: HumaLOG 300 UNITS/3 ML VIAL SC PRN ×4 (06:31→21:21)
[2019-06-08 06:59] LABS: INR-International Normal Ratio 1.2
[2019-06-08 07:14] LABS: Anion Gap 10 mmol/L (10-20); BUN (Urea Nitrogen) 56 mg/dL (8.4-25.7); Calc. Creatinine Clearance 56 mL/min (70-130); Calcium 8.4 mg/dL (7.8-10.44); Carbon Dioxide 26 mmol/L (22-29); Chloride 98 mmol/L (98-107); Estimated GFR-MDRD 15; Potassium 6.3 mmol/L (3.5-5.1); Sodium 128 mmol/L (136-145)
[2019-06-08 07:27] LABS: Glucose 663 mg/dL (70-105)
[2019-06-08] MEDS: hydrALAZINE 25 MG TAB PO SCH ×3 (09:08→21:13)
[2019-06-08] MEDS: Aspirin 81 mg Enteric Coated Tablet PO SCH (09:08)
[2019-06-08] MEDS: Famotidine 20 MG TAB PO SCH (09:08)
[2019-06-08] MEDS: Senokot S 8.6-50 MG TAB PO SCH ×2 (09:08→21:13)
[2019-06-08] MEDS: Gabapentin 100 MG CAP PO SCH ×3 (09:09→21:12)
[2019-06-08] MEDS ORDERED: Insulin Glargine 10 UNITS in Pre-Filled Syringe 1 EACH SC SCH ×2 (10:30→21:00)
[2019-06-08 11:38] LABS: Anion Gap 16 mmol/L (10-20); BUN (Urea Nitrogen) 57 mg/dL (8.4-25.7); Calc. Creatinine Clearance 55 mL/min (70-130); Calcium 8.5 mg/dL (7.8-10.44); Carbon Dioxide 22 mmol/L (22-29); Chloride 97 mmol/L (98-107); Estimated GFR-MDRD 15; Glucose 516 mg/dL (70-105); Potassium 5.4 mmol/L (3.5-5.1); Sodium 130 mmol/L (136-145)
--- NOTE | 2019-06-08 12:21 | PRG ---
DATE OF SERVICE: 06/08/2019 SUBJECTIVE: Patient was seen and examined at bedside and overnight events noted. Patient denies any shortness of breath or chest pain or palpitation. No history of nausea or vomiting or diarrhea or fever or chills or cramps. OBJECTIVE: GENERAL: This is a morbidly obese male, in no apparent distress. VITAL SIGNS: Temperature 97.2. Heart rate 84. Respiratory rate 18. Blood pressure 146/71. HEENT: Atraumatic, normocephalic. Oral mucosa is moist NECK: Supple. CARDIOVASCULAR: S1, S2 heard. Rate and rhythm regular. RESPIRATORY: Clear to auscultation. GASTROINTESTINAL: Abdomen is soft. MUSCULOSKELETAL: No tenderness. No edema. DERMATOLOGIC: No skin rash. NEUROLOGIC: Alert and awake and oriented X3. No focal neurologic deficits. Moving all the extremities. PSYCHIATRIC: Mood and affect normal. LABORATORY DATA: Potassium is 6.3, BUN is 56, creatinine is 4.07. Glucose is more than 550. ASSESSMENT AND PLAN: 1. Acute kidney injury. Renal function is getting better. 2. Azotemia, better. 3. Hyperkalemia with hyponatremia, most likely from hyperglycemia. 4. Hyperglycemia, needs tight glycemic control. 5. Edema, controlled. Repeat labs this afternoon and look if potassium is stable. Monitor. Job ID: [id number]
--- NOTE | 2019-06-08 16:10 | EKG ---
Test Reason : POSTOP Blood Pressure : / mmHG Vent. Rate : 060 BPM Atrial Rate : 060 BPM P-R Int : 134 ms QRS Dur : 092 ms QT Int : 446 ms P-R-T Axes : 063 -15 039 degrees QTc Int : 446 ms Normal sinus rhythm Low voltage QRS Borderline ECG Confirmed by ROLANDO ISRAEL ([id number]) on 06/08/2019 4:09:54 PM Referred By: LATRICE Confirmed By:ROLANDO ISRAEL
--- NOTE | 2019-06-08 16:20 | EKG ---
Test Reason : Blood Pressure : / mmHG Vent. Rate : 056 BPM Atrial Rate : 056 BPM P-R Int : 080 ms QRS Dur : 086 ms QT Int : 446 ms P-R-T Axes : 056 030 043 degrees QTc Int : 430 ms Sinus bradycardia with short AK Low voltage QRS Abnormal ECG Confirmed by ROLANDO ISRAEL ([id number]) on 06/08/2019 4:19:49 PM Referred By: LATRICE Confirmed By:ROLANDO ISRAEL
--- NOTE | 2019-06-08 16:51 | PRG ---
DATE OF SERVICE: 06/08/2019 SUBJECTIVE: The patient had an ablation of his atrial flutter, I believe, yesterday, which was successful. Denies any headaches. No dyspnea. Mild back pain. No abdominal pain. He has been afebrile, and I's and O's have been negative. He is voiding in the urinal. OBJECTIVE: GENERAL: Oriented. Follows commands. SKIN: Skin exam in the back area shows a very healthy granulating base of the wound in the back. No erythema surrounding the margin of the wound. No tenderness. LUNGS: With clear breath sounds. HEART: S1 and S2. Regular rate. ABDOMEN: Soft with enlargement of panniculus from his obesity. LABORATORY DATA: White cell count 6.6, hemoglobin 11, platelets 322. Chemistry with a sodium 130, creatinine 4.14 with some improvement since the peak creatinine, glucose 516. Anaerobic cocci in the back tissue are the only isolate, not fully identified. ASSESSMENT AND DISCUSSION: Morbid obesity; type 2 diabetes; infected sebaceous cyst, status post complete I and D, brief antimicrobial therapy now with healthy-appearing tissue. At this point, discontinue antimicrobial therapy. No outpatient oral antimicrobial needed. Job ID: [id number]
--- NOTE | 2019-06-08 17:25 | PRG ---
DATE OF SERVICE: 06/08/2019 SUBJECTIVE: Mr. Pryor is doing well one day after his cavotricuspid isthmus ablation, pulmonary venous isolation procedure. He has no recurrent bleeding in the groin. No palpitations, maintaining sinus rhythm on amiodarone. OBJECTIVE: VITAL SIGNS: Blood pressure is 117/95, heart rate 73, respirations 12, the patient is afebrile. GENERAL: Alert and oriented obese man, in no apparent distress. NECK: Supple. Jugular veins, difficult to visualize, but not deeply distended. CHEST: Coarse without crackles. HEART: Heart sounds are regular to rate and rhythm. No murmur or gallop. ABDOMEN: Benign. Bowel sounds positive. Groin sites without reaction at the catheterization sites. EXTREMITIES: Lower extremities with no edema, clubbing, or cyanosis. LABORATORY DATA: INR of 1.2, lower than 1.3 the previous day. Followup PTT is 85. Hemoglobin was 7.8 yesterday morning. Telemetry strips reveal sinus rhythm. ASSESSMENT AND PLAN: Mr. Pryor is a 53-year-old man with history of atrial flutter, also [id number] atrial fibrillation during EP study, who underwent cavotricuspid isthmus ablation and pulmonary venous isolation procedure yesterday. He tolerated the procedure well. No complications noted. Currently, he appears to be stable. PLAN: Our plan is at this point, 1. Continue routine monitoring on IV heparin and continue Coumadin therapy. Target INR of 2 to 3. For now, continue IV heparin until therapeutic range to achieve. 2. For now, we will stop amiodarone. 3. Renal insufficiency. Slight improvement followed by Nephrology. 4. Morbid obesity. Weight loss is strongly advised to check for sleep apnea. Job ID: [id number]
--- NOTE | 2019-06-08 17:27 | PDOC.PN ---
- Subjective Encounter Start Date: 06/08/19 Encounter Start Time: 17:25 Subjective: feels better.s/p ablation yesterday and started on coumadin -: worried about cost -: ta bedside and care discussed in detail - Objective Resuscitation Status - Order Detail: 05/27/19 08:50 Resuscitation Status Routine Resuscitation Status: FULL: Full Resuscitation MAR Reviewed: Yes Vital Signs & Weight: Vital Signs (12 hours) Temp Pulse BP Pulse Ox 06/08/19 15:50 83 185/95 H 06/08/19 15:12 97.8 F 06/08/19 09:08 83 185/95 H 06/08/19 08:00 93 L 06/08/19 07:10 97.2 F L Weight Admit Weight 399 lb 7.642 oz Weight 425 lb 7.874 oz Most Recent Monitor Data Heart Rate from ECG 70 NIBP 146/68 NIBP BP-Mean 94 Respiration from ECG 14 SpO2 95 I&O: 06/07/19 06/08/19 06/09/19 06:59 06:59 06:59 Intake Total 3680 Output Total 7855 2800 Balance -4175 -2800 Result Diagrams: 06/07/19 09:59 06/08/19 10:51 Additional Labs: Accuchecks 06/08/19 06/08/19 06/07/19 06:39 05:35 20:37 POC Glucose Greater than 550 H* Greater than 550 H* 308 H 06/07/19 05:33 POC Glucose 339 H Microbiology 05/30/19 08:36 Back - Tissue Bacterial Culture - Final 05/30/19 08:36 Back - Tissue Anaerobic Culture - Final Anaerobic cocci 05/30/19 08:36 Back - Tissue Acid Fast Bacilli Smear - Final 05/30/19 08:22 Back - E swab Bacterial Culture - Final 05/30/19 08:22 Back - E swab Anaerobic Culture - Final NO ANAEROBES ISOLATED IN 5 DAYS 05/30/19 08:22 Back - E swab Acid Fast Bacilli Smear - Final 05/30/19 08:22 Back - E swab Acid Fast Bacilli Culture - Final Phys Exam - Physical Examination Constitutional: NAD anxious HEENT: PERRLA, moist MMs, sclera anicteric, oral pharynx no lesions Neck: no nodes, no JVD, supple, full ROM Respiratory: no wheezing, no rales, no rhonchi, clear to auscultation bilateral Cardiovascular: RRR, no significant murmur, no rub Gastrointestinal: soft, non-tender, no distention, positive bowel sounds Musculoskeletal: no edema, pulses present Neurological: non-focal, normal sensation, moves all 4 limbs Psychiatric: normal affect, A&O x 3 Skin: no rash Dx/Plan (1) Atrial flutter with rapid ventricular response Code(s): I48.92 - UNSPECIFIED ATRIAL FLUTTER Status: Acute Comment: S/P Ablation 06/07/19 Started on Couamdin w IV heparin bridging sinus pauses on Amiodarone-stopped, (2) Hyperglycemia Code(s): R73.9 - HYPERGLYCEMIA, UNSPECIFIED Status: Acute Comment: will increase Lantus and SSI.monitor (3) Hyperkalemia Code(s): E87.5 - HYPERKALEMIA Status: Acute Comment: likley due to # 2.Discussed w nephrology. monitor an dtreat High blood sugars (4) Abscess of back Code(s): L02.212 - CUTANEOUS ABSCESS OF BACK [ANY PART, EXCEPT BUTTOCK] Status : Acute Comment: s/p excisional debridement, marked improvement. discussed w DR. Sal-no need for continued ABx as wound looks healthy & necrotic tissue was completly excised (5) Acute renal failure superimposed on stage 3 chronic kidney disease Code(s): N17.9 - ACUTE KIDNEY FAILURE, UNSPECIFIED; N18.3 - CHRONIC KIDNEY DISEASE, STAGE 3 (MODERATE) Status: Acute Qualifiers: Acute renal failure type: with acute tubular necrosis Qualified Code(s): N17.0 - Acute kidney failure with tubular necrosis; N18.3 - Chronic kidney disease, stage 3 (moderate) Comment: Appears multifactorial and iatrogenic, slow improvement, avoid nephrotoxic agents and limit contrast exposure, serial creatinine (6) Diabetes mellitus Code(s): E11.9 - TYPE 2 DIABETES MELLITUS WITHOUT COMPLICATIONS Status: Chronic Qualifiers: Diabetes mellitus skilled nursing insulin use: with skilled nursing use Diabetes mellitus complication status: with neurologic complications Diabetes mellitus complication detail: with polyneuropathy Comment: b.lood sugars high, start low dose Lantus (5 units HS), monotor accuchecks, continue insulin sliding scale. (7) Tobacco abuse Code(s): Z72.0 - TOBACCO USE Status: Chronic Comment: Tobacco cessation resources (8) Morbid obesity with BMI of 50.0-59.9, adult Code(s): E66.01 - MORBID (SEVERE) OBESITY DUE TO EXCESS CALORIES; Z68.43 - BODY MASS INDEX (BMI) 50-59.9, ADULT Status: Chronic - Plan DVT proph w/SCDs pharmacy to monitor INR.pt needs to stay ti;ll INR therapeutic -: cont heparin bridging -: BMP at 18.00 today -: HD stable -: BP better.hydralzine increased yesterday * . Review of Systems - Review of Systems Constitutional: negative: fever, chills, sweats, weakness, malaise, other ENT: negative: Ear Pain, Ear Discharge, Nose Pain, Nose Discharge, Nose Congestion, Mouth Pain, Mouth Swelling, Throat Pain, Throat Swelling, Other Respiratory: negative: Cough, Dry, Shortness of Breath, Hemoptysis, SOB with Excertion, Pleuritic Pain, Sputum, Wheezing Cardiovascular: negative: chest pain, palpitations, orthopnea, paroxysmal nocturnal dyspnea, edema, light headedness, other Gastrointestinal: negative: Nausea, Vomiting, Abdominal Pain, Diarrhea, Constipation, Melena, Hematochezia, Other Genitourinary: negative: Dysuria, Frequency, Incontinence, Hematuria, Retention , Other Musculoskeletal: negative: Neck Pain, Shoulder Pain, Arm Pain, Back Pain, Hand Pain, Leg Pain, Foot Pain, Other Neurological: negative: Weakness, Numbness, Incoordination, Change in Speech, Confusion, Seizures, Other - Medications/Allergies Allergies/Adverse Reactions: Allergies Allergy/AdvReac Type Severity Reaction Status Date / Time No Known Allergies Allergy Verified 05/27/19 10:36 Medications: Current Medications Acetaminophen (Tylenol) 1,000 mg PO Q6H PRN PRN Reason: Mild-Moderate Pain (1-5) Last Admin: 06/07/19 20:52 Dose: 1,000 mg Albuterol Sulfate (Albuterol Sulfate) 1.25 mg NEB Q8H PRN PRN Reason: Wheezing Aspirin (Ecotrin) 81 mg PO DAILY SHIVA Last Admin: 06/08/19 09:08 Dose: 81 mg Clonidine (Catapres) 0.1 mg PO Q8H PRN PRN Reason: SBP Greater Than 180 Last Admin: 06/07/19 22:09 Dose: 0.1 mg Dextrose/Water (Dextrose 50%) 25 gm SLOW IVP PRN PRN PRN Reason: Hypoglycemia Famotidine (Pepcid) 20 mg PO DAILY [facility] Last Admin: 06/08/19 09:08 Dose: 20 mg Gabapentin (Neurontin) 100 mg PO TID [facility] [place] Last Admin: 06/08/19 09:09 Dose: Not Given Glucagon (Glucagon) 1 mg IM PRN PRN PRN Reason: Hypoglycemia Heparin Sodium (Porcine) (Heparin 1,000 Units/Ml (10 Ml)) 4,000 units SLOW IVP ASDIR [facility] [place]; Protocol Last Admin: 06/07/19 00:53 Dose: 4,000 units Hydralazine HCl (Apresoline) 10 mg SLOW IVP Q4H PRN PRN Reason: SBP Greater Than 170 Last Admin: 06/08/19 01:16 Dose: 10 mg Hydralazine HCl (Apresoline) 50 mg PO TID [facility] [place] Last Admin: 06/08/19 15:50 Dose: 50 mg Dextrose/Water (D5w) 1,000 mls @ 0 mls/hr IV .Q0M PRN PRN Reason: Hypoglycemia Heparin Sodium/Dextrose (Heparin 25,000 Units/D5w 500 Ml) 500 mls @ 0 mls/hr IVPB INF [facility]; Protocol Last Admin: 06/08/19 15:50 Dose: 500 mls Insulin Glargine 10 units/ (Miscellaneous Medication) 0.1 mls @ 0 mls/hr SC HS SHIVA Insulin Glargine 10 units/ (Miscellaneous Medication) 0.1 mls @ 0 mls/hr SC QAM [facility] Insulin Human Lispro (Humalog) 0 units SC .BEDTIME SLIDING SC PRN PRN Reason: Bedtime Correctional Scale Last Admin: 06/08/19 15:58 Dose: 13 unit Insulin Human Lispro (Humalog) 0 units SC .AGGRESSIVE SLIDING PRN; Protocol PRN Reason: AGGRESSIVE SLIDING SCALE Last Admin: 06/08/19 06:31 Dose: 13 unit Metoclopramide HCl (Reglan) 5 mg IVP Q6H PRN PRN Reason: Nausea/Vomiting Last Admin: 06/06/19 20:26 Dose: 5 mg Miscellaneous Medication (Pharmacy To Dose) 1 each PO DAILY [facility] [place] Morphine Sulfate (Morphine) 2 mg SLOW IVP Q4H PRN PRN Reason: Mild-Moderate Pain (1-5) Last Admin: 06/06/19 23:10 Dose: 2 mg Morphine Sulfate (Morphine) 4 mg SLOW IVP Q4H PRN PRN Reason: Moderate to Severe Pain (6-10) Last Admin: 06/01/19 09:45 Dose: 4 mg Nifedipine (Procardia Xl) 90 mg PO DAILY [facility] [place] Last Admin: 06/08/19 04:24 Dose: 90 mg Nitroglycerin (Nitrostat) 0.4 mg SL Q5MIN PRN PRN Reason: Chest Pain Last Admin: 06/06/19 18:20 Dose: 0.4 mg Polyethylene Glycol (Miralax) 17 gm PO HS PRN PRN Reason: Constipation Senna/Docusate Sodium (Senokot S) 1 tab PO BID [facility] [place] Last Admin: 06/08/19 09:08 Dose: Not Given Throat Lozenges (Cepastat Lozenges) 1 negin PO Q2H PRN PRN Reason: Sore Throat Last Admin: 05/30/19 16:36 Dose: 1 negin Warfarin Sodium (Coumadin) 10 mg PO 2100 [facility] [place] Last Admin: 06/07/19 21:56 Dose: 10 mg
--- NOTE | 2019-06-08 20:05 | PDOC.CTH ---
Cardiology Progress Note - Subjective He is doing well. No new issues. Remains in sinus. - Objective Vital Signs Temp Pulse BP 06/08/19 19:51 98.0 F 06/08/19 15:50 83 185/95 H 06/08/19 15:12 97.8 F 06/08/19 09:08 83 185/95 H Admit Weight 399 lb 7.642 oz Weight 425 lb 7.874 oz 06/07/19 06/08/19 06/09/19 06:59 06:59 06:59 Intake Total 3680 1200 Output Total 7855 2800 2300 Balance -4173 -6930 -1100 - Physical Examination General/Neuro: alert & oriented x3, NAD Neck: no JVD present Lungs: CTA, unlabored respirations Heart: RRR Abdomen: NT/ND Extremities: + edema B (1+) - Telemetry Telemetry Rhythm: NSR - Labs Result Diagrams: 06/07/19 09:59 06/08/19 10:51 Troponin/CKMB CK-MB (CK-2) 0.5 ng/mL (0-6.6) 05/27/19 07:15 Troponin I Less than 0.010 ng/mL (< 0.028) 06/04/19 03:35 - Assessment/Plan 1. Atrial flutter/ Atrial fibrillation 2. Large upper back abscess s/p drainage. 3. Sinus node dysfunction. 4. Acute renal injury. 5. Morbid obesity 6. Anemia 7. HTN PLAN: - S/P PVI for easily inducible afib and isthmus ablation for flutter. - Warfarin for stroke prophylaxis, heparin bridge until INR therapeutic between 2-3.
[2019-06-08 20:41] LABS: Anion Gap 15 mmol/L (10-20); BUN (Urea Nitrogen) 56 mg/dL (8.4-25.7); Calc. Creatinine Clearance 58 mL/min (70-130); Calcium 8.5 mg/dL (7.8-10.44); Carbon Dioxide 25 mmol/L (22-29); Chloride 96 mmol/L (98-107); Estimated GFR-MDRD 16; Glucose 380 mg/dL (70-105); Sodium 131 mmol/L (136-145)
[2019-06-08] MEDS: Warfarin Sodium 10 MG TAB PO SCH (21:14)
[2019-06-08] MEDS: Heparin 10,000 UNITS/ 10 ML VIAL SLOW IVP SCH (21:14)
[2019-06-08] MEDS: Nitroglycerin 0.4 MG TAB (25 Tab Bottle) SL PRN (22:34)
[2019-06-08] MEDS: Acetaminophen 500 MG TAB PO PRN (22:56)
[2019-06-09] MEDS: Heparin 25,000 units/D5W 500 ML IVPB SCH ×2 (03:08→20:47)
[2019-06-09] MEDS: cloNIDine 0.1 MG TAB PO PRN (03:26)
[2019-06-09] MEDS: hydrALAZINE 20 MG/ML VIAL SLOW IVP PRN ×2 (03:27→19:36)
[2019-06-09 03:38] LABS: Hemoglobin 11.3 g/dL (14.0-18.0); Platelet Count 372 thou/uL (130-400)
[2019-06-09 04:00] LABS: Anion Gap 14 mmol/L (10-20); BUN (Urea Nitrogen) 58 mg/dL (8.4-25.7); Calc. Creatinine Clearance 61 mL/min (70-130); Calcium 9.2 mg/dL (7.8-10.44); Carbon Dioxide 25 mmol/L (22-29); Chloride 99 mmol/L (98-107); Estimated GFR-MDRD 17; Glucose 289 mg/dL (70-105); Potassium 4.7 mmol/L (3.5-5.1); Sodium 133 mmol/L (136-145)
[2019-06-09] MEDS: Heparin 10,000 UNITS/ 10 ML VIAL SLOW IVP SCH (04:18)
[2019-06-09 05:34] LABS: INR-International Normal Ratio 1.2; Prothrombin Time 14.7 SEC (12.0-14.7)
[2019-06-09] MEDS: HumaLOG 300 UNITS/3 ML VIAL SC PRN ×4 (06:02→20:08)
[2019-06-09] MEDS ORDERED: Insulin Glargine 10 UNITS in Pre-Filled Syringe 1 EACH SC SCH (09:00)
[2019-06-09] MEDS: hydrALAZINE 25 MG TAB PO SCH ×3 (09:27→20:09)
[2019-06-09] MEDS: Famotidine 20 MG TAB PO SCH (09:27)
[2019-06-09] MEDS: NIFEdipine XL 90 MG TAB PO SCH (09:27)
[2019-06-09] MEDS: Aspirin 81 mg Enteric Coated Tablet PO SCH (09:27)
[2019-06-09] MEDS: Gabapentin 100 MG CAP PO SCH ×3 (09:28→20:11)
[2019-06-09] MEDS: Senokot S 8.6-50 MG TAB PO SCH ×2 (10:17→20:12)
--- NOTE | 2019-06-09 13:42 | PDOC.CTH ---
Cardiology Progress Note - Subjective Doing well. BP still high. - Objective Vital Signs Temp Pulse BP Pulse Ox 06/09/19 11:33 97.7 F 06/09/19 09:27 83 188/87 H 06/09/19 08:00 97 06/09/19 07:50 97.6 F 06/09/19 03:42 98.8 F 06/09/19 03:27 83 188/87 H 06/09/19 03:26 188/87 H Admit Weight 399 lb 7.642 oz Weight 420 lb 14.4 oz 06/08/19 06/09/19 06/10/19 06:59 06:59 06:59 Intake Total 2666.2 2179 Output Total 5515 4150 Balance -2848.8 -1971 - Physical Examination General/Neuro: alert & oriented x3, NAD Neck: no JVD present Lungs: CTA, unlabored respirations Heart: RRR Abdomen: NT/ND Extremities: + edema B (1+) - Telemetry Telemetry Rhythm: NSR - Labs Result Diagrams: 06/09/19 03:10 06/09/19 03:10 Troponin/CKMB CK-MB (CK-2) 0.5 ng/mL (0-6.6) 05/27/19 07:15 Troponin I Less than 0.010 ng/mL (< 0.028) 06/04/19 03:35 - Assessment/Plan 1. Atrial flutter/ Atrial fibrillation 2. Large upper back abscess s/p drainage. 3. Sinus node dysfunction. 4. Acute renal injury. 5. Morbid obesity 6. Anemia 7. HTN PLAN: - S/P PVI for easily inducible afib and isthmus ablation for flutter. - Warfarin for stroke prophylaxis, heparin bridge until INR therapeutic between 2-3. - BP still not controlled. - Maxed out on nifedipine and hydralazinde. He has some edema so will start IV lasix. Will also add clonidine and low dose coreg.
[2019-06-09] MEDS ORDERED: Furosemide 40 MG/4 ML VIAL SLOW IVP SCH (13:45)
--- NOTE | 2019-06-09 13:56 | PRG ---
DATE OF SERVICE: 06/09/2019 SUBJECTIVE: The patient is seen and examined at the bedside. His is present in the room during my visit. He just finished his physical therapy. He is exhausted and somewhat short of breath. OBJECTIVE: VITAL SIGNS: Blood pressure is 157/72, pulse is 87, respiratory rate is 22, and O2 saturation is 94% to 97% on room air. He is obese. His BMI is 49. GENERAL: He follows my commands. HEENT: His head is atraumatic and normocephalic. Eyes are PERRLA. Sclerae are nonicteric. Oral mucosa is moist. NECK: Supple. Obese. LUNGS: Breath sounds somewhat diminished at both bases. HEART: S1 and S2. No S3. No S4. Distant. ABDOMEN: Obese. Bowel sounds present. No organomegaly. EXTREMITIES: 2 to 3+ peripheral edema similar bilaterally on both lower extremities. NEUROLOGICAL: He follows my commands. He moves his all 4 extremities. No motor deficits. LABORATORY DATA: Labs showed hemoglobin of 11.3 and hematocrit 35.0. INR of 1.2, APTT 57.6, and PT 14.7. Sodium 133, potassium 4.7, chloride 99, CO2 of 25, BUN 58, creatinine 3.71, and glucose is ranging from 258 to 420. Microbiology, nothing new. IMPRESSION: 1. Atrial flutter with rapid ventricular response, status post ablation 05/2010, started on Coumadin with IV heparin bridging. 2. Hyperglycemia/diabetes mellitus. I am going to increase his Lantus to 15 units twice a day along with short-acting and aggressive sliding scale. 3. Hyperkalemia, resolved. 4. Abscess of the back, status post incision and drainage plus debridement and no need for antibiotics treatment per ID. 5. Acute renal failure, superimposed on stage 3 chronic kidney disease, improving gradually. It is felt that he has acute tubular necrosis. 6. Morbid obesity with BMI of 50. PLAN: Continue his IV heparin until INR is therapeutic. Continue his Coumadin 10 mg once a day. His INR is still low. improved, but it is still an issue. Job ID: [id number]
--- NOTE | 2019-06-09 14:17 | PRG ---
DATE OF SERVICE: 06/09/2019 SUBJECTIVE: Patient was seen and examined at bedside and overnight events noted. Patient denies any shortness of breath or chest pain or palpitation. No history of nausea or vomiting or diarrhea or fever or chills or cramps. OBJECTIVE: GENERAL: This is a morbidly obese male, in no apparent distress. VITAL SIGNS: Temperature 97.7. Heart rate . Respiratory rate 18. Blood pressure . HEENT: Atraumatic, normocephalic. Oral mucosa is moist NECK: Supple. CARDIOVASCULAR: S1, S2 heard. Rate and rhythm regular. RESPIRATORY: Clear to auscultation. GASTROINTESTINAL: Abdomen is soft. MUSCULOSKELETAL: No tenderness. No edema. DERMATOLOGIC: No skin rash. NEUROLOGIC: Alert and awake and oriented X3. No focal neurologic deficits. Moving all the extremities. PSYCHIATRIC: Mood and affect normal. LABORATORY DATA: Potassium 4.7, BUN is 58, and creatinine is 3.7. ASSESSMENT AND PLAN: 1. Acute kidney injury, getting better slowly. 2. Edema, okay with Lasix for now. We will recommend Lasix 40 mg IV today and then 40 mg IV in the morning. We will monitor. 3. Hyperkalemia, better. 4. Hyperglycemia. 5. Edema, controlled. Renal function getting better. Okay with Lasix today, and we will follow. Job ID: [id number]
[2019-06-09] MEDS: Carvedilol 3.125 MG TAB PO SCH (15:41)
[2019-06-09] MEDS: Warfarin Sodium 10 MG TAB PO SCH (20:10)
[2019-06-09] MEDS: cloNIDine 0.1 MG TAB PO SCH ×2 (20:11→22:23)
[2019-06-09] MEDS ORDERED: Warfarin Sodium 2.5 MG TAB PO SCH (21:00)
[2019-06-09] MEDS ORDERED: Insulin Glargine 30 UNITS in Pre-Filled Syringe SC SCH (21:00)
[2019-06-09] MEDS ORDERED: Insulin Glargine 15 UNITS in Pre-Filled Syringe 1 EACH SC SCH (21:00)
[2019-06-10 05:55] LABS: INR-International Normal Ratio 1.9; Prothrombin Time 21.6 SEC (12.0-14.7)
[2019-06-10 07:31] LABS: Anion Gap 13 mmol/L (10-20); BUN (Urea Nitrogen) 50 mg/dL (8.4-25.7); Calc. Creatinine Clearance 77 mL/min (70-130); Calcium 8.9 mg/dL (7.8-10.44); Carbon Dioxide 27 mmol/L (22-29); Chloride 101 mmol/L (98-107); Estimated GFR-MDRD 23; Glucose 216 mg/dL (70-105); Potassium 4.2 mmol/L (3.5-5.1); Sodium 137 mmol/L (136-145)
[2019-06-10] MEDS ORDERED: Insulin Glargine 30 UNITS in Pre-Filled Syringe SC SCH (09:00)
[2019-06-10] MEDS ORDERED: Furosemide 40 MG/4 ML VIAL SLOW IVP SCH (09:00)
[2019-06-10] MEDS ORDERED: Insulin Glargine 15 UNITS in Pre-Filled Syringe 1 EACH SC SCH (09:00)
[2019-06-10] MEDS: Senokot S 8.6-50 MG TAB PO SCH ×3 (09:11→20:35)
[2019-06-10] MEDS: Aspirin 81 mg Enteric Coated Tablet PO SCH (09:11)
[2019-06-10] MEDS: cloNIDine 0.1 MG TAB PO SCH ×2 (09:11→20:32)
[2019-06-10] MEDS: Gabapentin 100 MG CAP PO SCH ×4 (09:11→22:25)
[2019-06-10] MEDS: Famotidine 20 MG TAB PO SCH (09:12)
[2019-06-10] MEDS: hydrALAZINE 25 MG TAB PO SCH ×3 (09:12→20:29)
[2019-06-10] MEDS: Carvedilol 3.125 MG TAB PO SCH ×2 (09:12→17:48)
[2019-06-10] MEDS: NIFEdipine XL 90 MG TAB PO SCH (09:13)
--- NOTE | 2019-06-10 10:01 | PDOC.CTH ---
Cardiology Progress Note - Subjective C/O needing walker for mobility. Otherwise feels fine. - Objective Vital Signs Temp Pulse Resp BP BP BP Pulse Ox 06/10/19 09:11 188/87 H 06/10/19 07:44 177/80 H 06/10/19 07:41 98.2 F 84 20 188/92 H 95 06/10/19 03:30 97.7 F 85 14 172/80 H 96 06/09/19 23:45 87 170/86 H 06/09/19 23:05 98.9 F 87 20 198/97 H 95 06/09/19 22:23 188/87 H Admit Weight 399 lb 7.642 oz Weight 420 lb 14.4 oz 06/09/19 06/10/19 06/11/19 06:59 06:59 06:59 Intake Total 2179 1230 Output Total 4150 6000 325 Balance -1971 -4770 -325 - Physical Examination General/Neuro: alert & oriented x3 Neck: no JVD present Lungs: CTA Heart: RRR Abdomen: soft Extremities: other: (+2 Bilateral ISABEL) - Telemetry Telemetry Rhythm: SR - Labs Result Diagrams: 06/11/19 04:53 06/11/19 04:53 Troponin/CKMB CK-MB (CK-2) 0.5 ng/mL (0-6.6) 05/27/19 07:15 Troponin I Less than 0.010 ng/mL (< 0.028) 06/04/19 03:35 - Assessment/Plan 1. Atrial flutter/ Atrial fibrillation s/p ablation 2. Large upper back abscess s/p drainage. 3. Sinus node dysfunction. 4. Acute renal injury. 5. Morbid obesity 6. Anemia 7. HTN PLAN: Continue with IV lasix. Still edematous. Renal function improving. BP improved, but still high. Coreg and clonidine added recently. Tele stable without bradycardia. Probably stop heparin tomorrow as INR 1.9 today. If BP remains high add nitrates. Will have nurse address walker. Pt seen and examined. Pt with marked edema. Has diuresed over 20 lbs. Creatinine continues to improve Cotniue diuresis for now and moniotr creatinine and BP closely.
[2019-06-10] MEDS: HumaLOG 300 UNITS/3 ML VIAL SC PRN ×2 (13:09→17:48)
--- NOTE | 2019-06-10 13:32 | PRG ---
DATE OF SERVICE: 06/10/2019 SUBJECTIVE: Patient was seen and examined at bedside and overnight events noted. Patient denies any shortness of breath or chest pain or palpitation. No history of nausea or vomiting or diarrhea or fever or chills or cramps. OBJECTIVE: GENERAL: This is a morbidly obese male, in no apparent distress. VITAL SIGNS: Temperature 97.2. Heart rate 84. Respiratory rate 18. Blood pressure 177/80. HEENT: Atraumatic, normocephalic. Oral mucosa is moist NECK: Supple. CARDIOVASCULAR: S1, S2 heard. Rate and rhythm regular. RESPIRATORY: Clear to auscultation. GASTROINTESTINAL: Abdomen is soft. MUSCULOSKELETAL: No tenderness. No edema. DERMATOLOGIC: No skin rash. NEUROLOGIC: Alert and awake and oriented X3. No focal neurologic deficits. Moving all the extremities. PSYCHIATRIC: Mood and affect normal. LABORATORY DATA: Potassium is 4.2, BUN is 50, and creatinine is 2.9. ASSESSMENT AND PLAN: 1. Acute kidney injury, getting better. 2. Chronic kidney disease, stage 3. 3. Hyperkalemia. 4. Edema, controlled. 5. Hypertension, stable. 6. Labs are getting better. We will follow. Job ID: [id number]
--- NOTE | 2019-06-10 15:14 | PRG ---
DATE OF SERVICE: 06/10/2019 SUBJECTIVE: The patient is seen and examined at the bedside. He feels somewhat weak and tired, especially when he gets up and starts moving around. His appetite is fair. OBJECTIVE: VITAL SIGNS: Blood pressure is 188/87, temperature is 98.2, pulse is 84, respirations are 20, and O2 saturation is 95% on room air. He uses CPAP at night. GENERAL: He is obese. His BMI is 49. HEENT: His pupils are responding to light properly. Sclerae are nonicteric. Oral mucosa is moist. NECK: Supple, obese. LUNGS: Breath sounds diminished at the both bases. HEART: S1 and S2 normal. No S3. No S4. ABDOMEN: Obese, soft, nontender. EXTREMITIES: 2 to 3+ peripheral edema present. His input and output for the last 24 hours, his input 1230, output 6000, which makes -4770. LABORATORY DATA: Showed INR of 1.9, PT is 21.6, PTT is 58.5. Normal electrolytes. BUN 50, creatinine 2.92, glycemia is ranging from 237 to 323. IMPRESSION: 1. Atrial flutter, status post ablation. 2. Large upper back abscess, status post drainage. 3. Acute renal injury, improving daily. 4. Morbid obesity. 5. Hypertension. 6. Anemia. 7. Anticoagulation with Coumadin and bridging with heparin IV. PLAN: Continue his current regimen with heparin and Coumadin. He received 12.5 mg of Coumadin last night per a pharmacist management. We will keep checking his INR, PTT, and PT. We want to overlap heparin with Coumadin at least for 24 hours before stopping heparin. His blood pressure is still big issue. I had to stop his Lasix for 1 day because I think he is volume depleted. He is putting out a lot of urine, some days he had almost 8000 mL urine output. So, I am going to go up on his insulin Lantus to 40 units twice a day from 30 units twice a day and continue sliding scale. Job ID: [id number]
[2019-06-10] MEDS: Heparin 25,000 units/D5W 500 ML IVPB SCH (16:39)
[2019-06-10] MEDS: Warfarin Sodium 10 MG TAB PO SCH (16:43)
[2019-06-10] MEDS: Insulin Glargine 35 UNITS in Pre-Filled Syringe 1 EACH SC SCH (20:30)
[2019-06-11] MEDS: HumaLOG 300 UNITS/3 ML VIAL SC PRN ×4 (00:24→20:24)
[2019-06-11] MEDS: hydrALAZINE 20 MG/ML VIAL SLOW IVP PRN (02:36)
[2019-06-11 05:02] LABS: Hemoglobin 10.9 g/dL (14.0-18.0); Platelet Count 239 thou/uL (130-400)
[2019-06-11 05:09] LABS: INR-International Normal Ratio 2.5; Prothrombin Time 26.6 SEC (12.0-14.7)
[2019-06-11 05:22] LABS: Anion Gap 13 mmol/L (10-20); BUN (Urea Nitrogen) 52 mg/dL (8.4-25.7); Calc. Creatinine Clearance 84 mL/min (70-130); Calcium 8.8 mg/dL (7.8-10.44); Carbon Dioxide 26 mmol/L (22-29); Chloride 98 mmol/L (98-107); Estimated GFR-MDRD 25; Glucose 325 mg/dL (70-105); Potassium 4.2 mmol/L (3.5-5.1); Sodium 133 mmol/L (136-145)
[2019-06-11 05:41] VITALS: BMI 47.4
[2019-06-11] MEDS ORDERED: Furosemide 40 MG/4 ML VIAL IVP SCH (09:00)
[2019-06-11] MEDS: Famotidine 20 MG TAB PO SCH (09:20)
[2019-06-11] MEDS: hydrALAZINE 25 MG TAB PO SCH ×3 (09:20→20:23)
[2019-06-11] MEDS: cloNIDine 0.1 MG TAB PO SCH ×2 (09:21→20:22)
[2019-06-11] MEDS: NIFEdipine XL 90 MG TAB PO SCH (09:21)
[2019-06-11] MEDS: Carvedilol 3.125 MG TAB PO SCH ×2 (09:21→17:54)
[2019-06-11] MEDS: Aspirin 81 mg Enteric Coated Tablet PO SCH (09:21)
[2019-06-11] MEDS: Gabapentin 100 MG CAP PO SCH ×3 (09:22→20:24)
[2019-06-11] MEDS: Senokot S 8.6-50 MG TAB PO SCH ×2 (09:22→20:37)
[2019-06-11] MEDS: Insulin Glargine 35 UNITS in Pre-Filled Syringe 1 EACH SC SCH ×2 (09:23→20:24)
[2019-06-11] MEDS: Heparin 25,000 units/D5W 500 ML IVPB SCH (09:26)
--- NOTE | 2019-06-11 12:39 | PDOC.CTH ---
Cardiology Progress Note - Subjective No complaints today other than feeling hot due to room temp. No CP, SOB. INR 2.5. - Objective Vital Signs Temp Pulse Resp BP BP BP Pulse Ox 06/11/19 11:51 98.0 F 69 21 H 115/50 L 95 06/11/19 09:21 82 160/70 H 06/11/19 09:20 82 06/11/19 08:15 97 06/11/19 08:00 98.1 F 82 20 160/70 H 97 06/11/19 04:00 98.8 F 85 18 142/78 H 96 06/11/19 02:36 91 172/83 H Admit Weight 399 lb 7.642 oz Weight 399 lb 11.2 oz 06/10/19 06/11/19 06/12/19 06:59 06:59 06:59 Intake Total 1230 1200 855 Output Total 6000 5900 1650 Balance -3611 -8640 -646 - Physical Examination General/Neuro: alert & oriented x3 Neck: no JVD present Lungs: CTA Heart: RRR Extremities: + edema B - Telemetry Telemetry Rhythm: SR - Labs Result Diagrams: 06/11/19 04:53 06/11/19 04:53 Troponin/CKMB CK-MB (CK-2) 0.5 ng/mL (0-6.6) 05/27/19 07:15 Troponin I Less than 0.010 ng/mL (< 0.028) 06/04/19 03:35 - Assessment/Plan 1. Atrial flutter/ Atrial fibrillation s/p ablation 2. Large upper back abscess s/p drainage. 3. Sinus node dysfunction. 4. Acute renal injury. 5. Morbid obesity 6. Anemia 7. HTN Patient feeling much better overall. Good output and diuresis. Significant weight loss, but still edematous and Cr improving. BP improving. INR 2.5. Stop Heparin gtt.
--- NOTE | 2019-06-11 14:42 | PRG ---
DATE OF SERVICE: 06/11/2019 SUBJECTIVE: Patient was seen and examined at bedside and overnight events noted. Patient denies any shortness of breath or chest pain or palpitation. No history of nausea or vomiting or diarrhea or fever or chills or cramps. OBJECTIVE: GENERAL: This is a morbidly obese male, in no apparent distress. VITAL SIGNS: Temperature 98.7. Pulse 69. Respiratory rate 18. Blood pressure . HEENT: Atraumatic, normocephalic. Oral mucosa is moist NECK: Supple. CARDIOVASCULAR: S1, S2 heard. Rate and rhythm regular. RESPIRATORY: Clear to auscultation. GASTROINTESTINAL: Abdomen is soft. MUSCULOSKELETAL: No tenderness. No edema. DERMATOLOGIC: No skin rash. NEUROLOGIC: Alert and awake and oriented X3. No focal neurologic deficits. Moving all the extremities. PSYCHIATRIC: Mood and affect normal. LABORATORY DATA: Potassium is 4.2, BUN is 56, and creatinine is 2.2. ASSESSMENT AND PLAN: 1. Acute kidney injury, getting better. 2. Chronic kidney disease, stage 3. We will monitor. 3. Hyperkalemia. 4. Edema. 5. mild. Renal function continues to get better. Today, creatinine is 2.6 from 2.9. We will follow. Avoid nephrotoxins. Hydration as tolerated. Job ID: [id number]
--- NOTE | 2019-06-11 14:44 | PRG ---
DATE OF SERVICE: 06/11/2019 SUBJECTIVE: The patient is seen and examined at the bedside. He does not have more diarrhea anymore. His appetite is good. OBJECTIVE: VITAL SIGNS: Blood pressure is 115/50, pulse is 69, temperature is 98.0, respiratory rate 21, O2 saturation is 95% on room air. HEENT: His head is atraumatic and normocephalic. Eyes are PERRLA. Sclerae are nonicteric. Oral mucosa is moist. NECK: Supple. LUNGS: Breath sounds diminished at both bases. HEART: S1, S2 normal. No S3. No S4. ABDOMEN: Soft, nontender. Bowel sounds are present. No organomegaly. EXTREMITIES: 2 to 3+ peripheral edema on lower extremities. NEUROLOGIC: He is alert and oriented x4. There is no any motor or sensory deficits present. Cranial nerves are intact. LABORATORY DATA: Labs showed hemoglobin of 10.9, hematocrit 30.5, platelet count 239. Sodium of 133, potassium 4.2, chloride 98, CO2 of 26, BUN 52, creatinine 2.69. Glycemia is ranging from 330 to 342, calcium 8.8. IMPRESSION: 1. Atrial flutter, status post ablation. 2. Large upper back abscess status post drainage. 3. Acute renal injury improving daily. 4. Fluid overload. 5. Morbid obesity. 6. Hypertension. 7. Anemia. 8. Anticoagulation with Coumadin and bridging with heparin IV. PLAN: Plan is to keep him on the same regimen with insulin Lantus 35 units twice a day and aggressive sliding scale since we just increase the dose on his insulin long-acting yesterday. His glycemia is high. I think he started eating more. He feels better and we are kind of limited to what we can use at this point except for insulin because of his renal function. His INR is 2.5. We are going to continue his heparin until tomorrow. We will continue his warfarin daily and we will try to get his blood pressure under better control, starting Lasix p.o. 40 mg tomorrow morning. Job ID: [id number]
[2019-06-11] MEDS: Warfarin Sodium 10 MG TAB PO SCH (17:55)
[2019-06-12 04:54] LABS: INR-International Normal Ratio 2.8; Prothrombin Time 28.9 SEC (12.0-14.7)
[2019-06-12 05:15] LABS: Anion Gap 10 mmol/L (10-20); BUN (Urea Nitrogen) 55 mg/dL (8.4-25.7); Calc. Creatinine Clearance 82 mL/min (70-130); Calcium 8.5 mg/dL (7.8-10.44); Carbon Dioxide 26 mmol/L (22-29); Chloride 100 mmol/L (98-107); Estimated GFR-MDRD 26; Glucose 378 mg/dL (70-105); Potassium 4.2 mmol/L (3.5-5.1); Sodium 132 mmol/L (136-145)
[2019-06-12] MEDS: HumaLOG 300 UNITS/3 ML VIAL SC PRN ×2 (05:53→09:02)
[2019-06-12] MEDS ORDERED: Furosemide 40 MG TAB PO SCH (07:30)
[2019-06-12] MEDS: Insulin Glargine 35 UNITS in Pre-Filled Syringe 1 EACH SC SCH (09:02)
[2019-06-12] MEDS: NIFEdipine XL 90 MG TAB PO SCH (09:04)
[2019-06-12] MEDS: Aspirin 81 mg Enteric Coated Tablet PO SCH (09:05)
[2019-06-12] MEDS: hydrALAZINE 25 MG TAB PO SCH ×2 (09:05→15:46)
[2019-06-12] MEDS: Famotidine 20 MG TAB PO SCH (09:06)
[2019-06-12] MEDS: Carvedilol 3.125 MG TAB PO SCH ×2 (09:06→15:46)
[2019-06-12] MEDS: Gabapentin 100 MG CAP PO SCH (09:06)
[2019-06-12] MEDS: Senokot S 8.6-50 MG TAB PO SCH (09:07)
[2019-06-12] MEDS: cloNIDine 0.1 MG TAB PO SCH (09:07)
[2019-06-12 11:34] VITALS: BP 118/57; TEMP 98.7
--- NOTE | 2019-06-12 12:10 | PRG ---
DATE OF SERVICE: 06/12/2019 SUBJECTIVE: This 53-year-old gentleman, being seen for acute kidney injury. The patient denied nausea, vomiting, or chest pain. OBJECTIVE: CONSTITUTIONAL: The patient is awake, alert. VITAL SIGNS: Pulse 75, breathing 16, blood pressure 162/84. GENERAL APPEARANCE AND MENTAL STATUS: Fair. HEAD/NECK: Normocephalic. Atraumatic. EYES: EOMI. No deformity. EARS: Clear. No ulcers. NOSE: Intact. No lesions. MOUTH: Clear. No discharge. THROAT: Clear. No exudate. LUNGS: Clear. No crackles. CARDIAC: S1, S2. No rub. ABDOMEN: Benign. Bowel sounds positive. GENITALIA/RECTUM: Cabrera absent. BACK/EXTREMITIES: Edema 0+. NEUROLOGICAL: Alert and motor intact. SKIN: LYMPHATICS: LABORATORY DATA: Reviewed. ASSESSMENT AND PLAN: 1. Stage 4 chronic kidney disease, stable. 2. Hypertension, stable. 3. Acute kidney injury, stable. No indication for dialysis. We will follow the patient's renal function closely. Job ID: [id number]
--- NOTE | 2019-06-12 16:10 | DIS ---
DATE OF ADMISSION: 05/27/2019 DATE OF DISCHARGE: 06/12/2019 DIAGNOSES AT TIME OF ADMISSION: 1. Abscess of the thoracic spine subcutaneous area. 2. Tachycardia, possibly atrial flutter. 3. Indeterminate troponins. 4. Diabetes mellitus. 5. Diabetic neuropathy. 6. Osteoarthropathy on both ankles. 7. History of asthma. 8. Charcot joint of the left foot. FINAL DIAGNOSES AT TIME OF DISCHARGE: 1. Atrial flutter, status post ablation, now the patient is in sinus rhythm. 2. Large upper back abscess, status post drainage. 3. Acute renal injury, improving. 4. Fluid overload, improved. 5. Morbid obesity. 6. Hypertension. 7. Anemia. 8. Diabetes mellitus, type 2. 9. Diabetic neuropathy. 10. Osteoarthropathy on both ankles. 11. History of asthma. CONSULTANTS: 1. Dr. Garry Evans, General Surgery. 2. Dr. Matthieu Sue, Cardiology Service. 3. Dr. David Johnson, Pulmonary/Critical Care. 4. Dr. Hussain Rashid, Nephrology Service. 5. Dr. Xavier Sal, Infectious Disease Services. 6. Dr. Darryl Pereira, Pulmonary/Critical Care Service. 7. Dr. Kassi Feliz, Nephrology Service. 8. Dr. Wyatt Perez, Electrophysiology Service. 9. Dr. Higginbotham, Cardiology Service. HOSPITAL COURSE: The patient is a 53-year-old male, who was admitted to the hospital for chest pain and back abscess. He reported some chills and some drenching night sweats, but he denied fever. He denied any drainage from the wound on his back. He had some intermittent chest pains for approximately 3 months prior to this hospitalization. The chest pain intensified and he decided to come to the emergency room for further evaluation. His glycemia was running high over 500 at home. In emergency room, his white count was elevated at 13.4, hemoglobin 14.1, and platelet count was 245,000. Electrolytes were within normal limits. Creatinine 1.16, glucose 274. BNP was elevated at 301.6. CT of the chest revealed abscess of the thoracic spine subcutaneous area, and chest x-ray showed slight increased vascular markings. Electrocardiogram showed tachycardia with left axis deviation and some incomplete right bundle-branch block, possibly some atrial flutter. The patient was placed on vancomycin and Zosyn. General surgeon was called to see the patient. Cardiology was consulted for possible atrial flutter. He was placed on therapeutic dose of Lovenox. His troponins were indeterminate, most likely related to fast heart beat. The diabetes mellitus was covered with sliding scale and valve steamer starting him on amiodarone drip. Surgeon recommended to continue IV antibiotics and control his heart rate. The echo was done, it showed LVEF estimated at 60% to 65% with moderate concentric left ventricular hypertrophy and mildly dilated left atrium and mild tricuspid regurgitation. Soft tissue ultrasound was done and it showed abnormal altered echogenicity within the subcutaneous tissues in the area of the clinical concern in the patient's back. The patient underwent a direct current synchronized cardioversion on May 29 to convert his flutter to normal sinus rhythm. This was done by Dr. Sue and his heparin and amiodarone postprocedure were continued. Procedure was done after transesophageal echo was done, which did not show any mass or thrombus in the left atrial appendage with normal flow velocities. KIARRA confirmed LVEF systolic function of 60% to 65% and bilateral enlargement with [id number] MR and mild TR. Subsequently, he underwent an excisional debridement of large upper back abscesses by Dr. Evans, general surgeon on May 30. Since, the patient's kidney function got worse during this hospitalization, he was seen by Dr. Rashid for Nephrology evaluation. He thought that this could be acute tubular necrosis because of sepsis versus postinfectious glomerulonephritis versus drug-induced acute interstitial nephritis because of Zosyn use. He recommended to continue hydration and his kidney function started to improve gradually, but because of the volume overload, he was placed on IV Lasix and he urinated a lot. Some days he had output of almost 8000 mL per 24 hours. He is switched to oral Lasix now. His glycemia was not very well controlled on insulin Lantus twice a day and aggressive sliding scale, but today it is ranging between 245 to 382. His creatinine is down to 2.6 today. There is significant improvement since he peaked at 547. Clinically, he is doing much better. He was started on Coumadin and it was bridged with heparin. His PT and INR were checked daily and last INR is 2.8. His heparin was stopped. He is able to ambulate. He is tired of being in the hospital. He wants to go home. He is discharged home with blood pressure of 162/84. He said he never had blood pressure issue prior to this hospitalization, but I do not think he was even checking his blood pressure. His pulse is 75, temperature is 98.4, respirations 18, and O2 saturation 97%. He is in normal sinus rhythm. Microbiology came back negative for acid-fast bacilli, which has been obtained from back tissue. During the procedure, he had no anaerobes isolated in the sample. He had many WBCs. The patient was also seen by Dr. Sal during this hospitalization, who recommended to finish up antibiotics and since he was in the hospital for longer than we predicted, he finished up the course and he is going to be discharged without any antibiotics. He will do wound care with his primary care physician, who is in [place]. His diet at the time of discharge is diabetic diet 2000 calories. He is going to limit his oral fluid intake to 1500 mL. ACTIVITIES: As tolerated. MEDICATIONS: His medications at the time of discharge; 1. Aspirin 81 mg once a day. 2. Carvedilol 3.125 mg twice a day. 3. Furosemide 40 mg once a day. 4. Gabapentin 100 mg 3 times a day. 5. Nifedipine 90 mg once a day. 6. Warfarin 7.5 mg once a day. 7. Clonidine 0.1 mg twice a day. 8. Hydralazine 100 mg 3 times a day. 9. Glipizide 10 mg twice a day. 10. Toujeo 75 units daily. 11. Bydureon 2 mg subcutaneously every 7 days. FOLLOWUP: He is going to follow up with Dr. Sue. He will call his office to set up followup appointment. Also, he will follow up with his primary doctor in [address] Feliz or Dr. Rashid in 7 to 10 days. He is going to do PT and INR on the and on the and those results will be sent to his PCP in [place] to modify the dose on his Coumadin. He is discharged in good condition and the discharge time is more than 30 minutes. Job ID: [id number]
[2019-06-12] MEDS ORDERED: Warfarin Sodium 5 MG TAB PO SCH (17:00)
== END 2019-06-12 16:44 | disposition home or self-care (01) | DRG 273 ==
LOC: ERS 03:46 → ERHOLD 07:35 → IMCU/EMU 10:15 → 2NO 06-09 23:11
PROVIDERS: ADMIT Internal Medicine; ATTEND Internal Medicine
PROC: B246ZZ4 Ultrasonography of Right and Left Heart, Transesophageal (ICD-10-PCS; 2019-05-29)
PROC: 5A2204Z Restoration of Cardiac Rhythm, Single (ICD-10-PCS; 2019-05-29)
PROC: 0JB70ZZ Excision of Back Subcutaneous Tissue and Fascia, Open Approach (ICD-10-PCS; 2019-05-30)
PROC: 0J9700Z Drainage of Back Subcutaneous Tissue and Fascia with Drainage Device, Open Approach (ICD-10-PCS; 2019-05-30)
PROC: 4A023FZ Measurement of Cardiac Rhythm, Percutaneous Approach (ICD-10-PCS; principal; 2019-06-07)
PROC: 02583ZZ Destruction of Conduction Mechanism, Percutaneous Approach (ICD-10-PCS; 2019-06-07)
PROC: 4A0234Z Measurement of Cardiac Electrical Activity, Percutaneous Approach (ICD-10-PCS; 2019-06-07)
PROC: 02K83ZZ Map Conduction Mechanism, Percutaneous Approach (ICD-10-PCS; 2019-06-07)
DX: I48.92 Unspecified atrial flutter (principal); N17.0 Acute kidney failure with tubular necrosis; L02.212 Cutaneous abscess of back [any part, except buttock and flank]; Z68.42 Body mass index [BMI] 45.0-49.9, adult; E11.40 Type 2 diabetes mellitus with diabetic neuropathy, unspecified; E66.01 Morbid (severe) obesity due to excess calories; G89.29 Other chronic pain; J45.909 Unspecified asthma, uncomplicated; E11.610 Type 2 diabetes mellitus with diabetic neuropathic arthropathy; E11.22 Type 2 diabetes mellitus with diabetic chronic kidney disease; N18.3 Chronic kidney disease, stage 3 (moderate); E11.65 Type 2 diabetes mellitus with hyperglycemia; E87.5 Hyperkalemia; D64.9 Anemia, unspecified; I12.9 Hypertensive chronic kidney disease with stage 1 through stage 4 chronic kidney disease, or unspecified chronic kidney disease; I49.5 Sick sinus syndrome; I48.91 Unspecified atrial fibrillation; L72.3 Sebaceous cyst; Z79.82 Long term (current) use of aspirin; Z87.891 Personal history of nicotine dependence
CPT/HCPCS: 36415; 36416; 71275; 76770; 76942; 76999; 80048; 80069; 80202; 81001; 82553; 82570; 83036; 83735; 84156; 84443; 84484; 85014; 85018; 85025; 85049; 85347; 85610; 85730; 87070; 87102; 87116; 87205; 87206; 88304; 88312; 90471; 90732; 92960; 93005; 93010; 93306; 93312; 93613; 93622; 93623; 93655; 93656; 93662; 96361; 96365; 96366; 96375; C1730; C1732; C1769; G0009; J0131; J0282; J0360; J1100; J1160; J1265; J1644; J1815; J1885; J1940; J2001; J2270; J2405; J2543; J2550; J2704; J2720; J2765; J3010; J3370; J3490; J7050; J7070; Q9967; S0028

== ENCOUNTER 2019-11-08 16:43 | Inpatient (IN) | payer MEDICAID, SELFPAY ==
--- NOTE | 2019-11-08 17:59 | RAD ---
EXAM: XR Foot Lt 3 View STANDARD PROVIDED CLINICAL HISTORY: Foot ulcer COMPARISON: None FINDINGS: Extensive corticated erosive changes are seen about the Lisfranc joint with dislocation of the second through fifth metatarsals with respect to the midfoot laterally. Chronic erosive changes at the intermetatarsal midfoot articulations and at the navicular-medial cuneiform relationship are also dem onstrated. There is diffuse swelling involving the soft tissues of the midfoot/forefoot. Soft tissue gas is noted the plantar aspect of the midfoot forefoot junction on the lateral view. Plantar calcaneal enthesophyte formation is noted. IMPRESSION: 1. 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 2. Nonspecific forefoot and midfoot soft tissue swelling with associated soft tissue gas.
[2019-11-08 18:12] LABS: #Eosinphils 0.2 thou/uL (0.0-0.7); #Lymphocytes 1.3 thou/uL (1.20-3.40); #Monocytes 0.4 thou/uL (0.11-0.59); #Neutrophils 3.9 thou/uL (1.40-6.50); %Basophils 0.3 % (0.0-1.0); %Eosinophils 3.7 % (0.0-10.0); %Monocytes 6.3 % (0.0-10.0); %Neutrophils 67.7 % (42.0-75.0); Mean Corpuscular Hemoglobin 27.5 pg (27.0-31.0); Mean Corpuscular Volume 80.9 fL (78.0-98.0); Platelet Count 236 thou/uL (130-400); RBC Distribution Width 14.3 % (11.5-14.5); Red Blood Cell (RBC) Count 5.08 mill/uL (4.70-6.10); White Blood Cell (WBC) Count 5.8 thou/uL (4.8-10.8)
[2019-11-08 18:35] LABS: ALT (SGPT) 13 U/L (8-55); AST (SGOT) 11 U/L (5-34); Alkaline Phosphatase 112 U/L (40-110); Anion Gap 15 mmol/L (10-20); BUN (Urea Nitrogen) 21 mg/dL (8.4-25.7); Bilirubin, Total 0.4 mg/dL (0.2-1.2); Calc. Creatinine Clearance 0 mL/min (70-130); Calcium 9.2 mg/dL (7.8-10.44); Carbon Dioxide 27 mmol/L (22-29); Chloride 98 mmol/L (98-107); Estimated GFR-MDRD 67; Globulin 3.3 g/dL (2.4-3.5); Glucose 425 mg/dL (70-105); Potassium 4.3 mmol/L (3.5-5.1); Protein, Total 7.3 g/dL (6.0-8.3); Sodium 136 mmol/L (136-145)
[2019-11-08] MEDS ORDERED: Ondansetron PF 4 MG/2 ML Vial ONE (19:20)
[2019-11-08] MEDS ORDERED: Morphine 4 MG/ML VIAL ONE (19:20)
[2019-11-08] MEDS ORDERED: Piperacillin/Tazobactam 4.5 GM VIAL ONE (19:20)
[2019-11-08] MEDS ORDERED: HYDROcodone/Acetaminophen 5/325 mg Tablet PO PRN (19:30)
[2019-11-08] MEDS ORDERED: Dextrose 5% in Water 1,000 ML IV PRN (19:30)
[2019-11-08] MEDS ORDERED: Ondansetron ODT 4 MG TAB PO PRN (19:30)
[2019-11-08] MEDS ORDERED: Dextrose 50% Abboject 50 ML SYRINGE SLOW IVP PRN (19:30)
[2019-11-08] MEDS ORDERED: Acetaminophen 325 MG TAB PO PRN (19:30)
[2019-11-09] MEDS: hydrALAZINE 20 MG/ML VIAL SLOW IVP PRN (01:42)
[2019-11-09] MEDS: HumaLOG 300 UNITS/3 ML VIAL SC PRN ×3 (01:45→17:46)
[2019-11-09] MEDS: Famotidine 20 MG TAB PO SCH ×3 (01:49→20:24)
[2019-11-09 02:00] VITALS: BMI 47.3
--- NOTE | 2019-11-09 02:56 | HP ---
CHIEF COMPLAINT: Foot pain. HISTORY OF PRESENT ILLNESS: Mr. Pryor is a 54-year-old male with past medical history of diabetes mellitus, presents to the emergency room with worsening left foot pain and drainage. The patient has a left plantar foot diabetic ulcer which has been draining with increasing pain; satellite manager think possible bone infection. Also, the patient has noticed severe edema of both lower extremities. No fever, no chills. Workup in the emergency room, the patient was hyperglycemic with a glucose of 425. X-ray showed nonspecific forefoot and midfoot soft-tissue swelling with associated soft tissue gas. Septic workup done in the ED. The patient started on IV antibiotics. The patient is being admitted to hospital for further management. PAST MEDICAL HISTORY: 1. Type 2 diabetes mellitus. 2. Asthma. PAST SURGICAL HISTORY: 1. Right ankle surgery. 2. Left elbow. SOCIAL HISTORY: Denies alcohol drinking, currently chews tobacco. FAMILY HISTORY: Reviewed. HOME MEDICATIONS: Please see home medication reconciliation form for updated medications. ALLERGIES: NO KNOWN ALLERGIES. REVIEW OF SYSTEMS: Review of 14 systems negative except what is mentioned in history of present illness. PHYSICAL EXAMINATION: GENERAL: The patient is awake, alert, in moderate distress. VITAL SIGNS: Blood pressure 170/100, pulse is 94, respiratory rate is 19, pulse oximetry 93% on room air. HEAD: Normocephalic, atraumatic. NECK: Supple. No JVD. CHEST: Fair bilateral air entry. HEART: S1, S2. Regular. ABDOMEN: Soft, nontender. Bowel sounds present. NEUROLOGIC: Awake, alert, and oriented x3. PSYCHIATRIC: Normal mood. EXTREMITIES: No clubbing or cyanosis. Left foot is erythematous, red, with draining ulcer plantar. LABORATORY DATA: As mentioned above in the history of present illness. X-ray of the foot as mentioned above in history of present illness. ASSESSMENT: 1. Diabetic foot ulcer, infected. 2. Diabetes mellitus, hyperglycemia. 3. Obesity. 4. Asthma. PLAN: 1. Admit. 2. Septic workup including blood cultures, wound cultures. 3. Wound care. 4. IV antibiotics. 5. Consult Surgery in a.m. for evaluation and further recommendations. 6. Monitor and control blood glucose. 7. Reconcile home medications. 8. DVT prophylaxis as appropriate. 9. Expected length of stay, 2 midnights or more. Job ID: [id number]
[2019-11-09] MEDS: Sodium Chloride 0.9% 1,000 ML IV SCH ×2 (02:58→13:08)
[2019-11-09 06:00] LABS: #Eosinphils 0.3 thou/uL (0.0-0.7); #Lymphocytes 1.2 thou/uL (1.20-3.40); #Monocytes 0.6 thou/uL (0.11-0.59); %Basophils 0.2 % (0.0-1.0); %Eosinophils 4.5 % (0.0-10.0); %Lymphocytes 19.6 % (21.0-51.0); %Monocytes 9.8 % (0.0-10.0); %Neutrophils 65.9 % (42.0-75.0); Hemoglobin 12.8 g/dL (14.0-18.0); Mean Corpuscular HGB CONC 33.6 g/dL (32.0-36.0); Mean Corpuscular Hemoglobin 27.6 pg (27.0-31.0); Mean Corpuscular Volume 82.1 fL (78.0-98.0); Mean Platelet Volume 6.8 fL (7.4-10.4); Platelet Count 202 thou/uL (130-400); RBC Distribution Width 14.3 % (11.5-14.5); Red Blood Cell (RBC) Count 4.63 mill/uL (4.70-6.10); White Blood Cell (WBC) Count 6.1 thou/uL (4.8-10.8)
[2019-11-09 06:17] LABS: Anion Gap 10 mmol/L (10-20); BUN (Urea Nitrogen) 20 mg/dL (8.4-25.7); Calc. Creatinine Clearance 232 mL/min (70-130); Calcium 8.7 mg/dL (7.8-10.44); Carbon Dioxide 31 mmol/L (22-29); Chloride 100 mmol/L (98-107); Estimated GFR-MDRD 86; Glucose 218 mg/dL (70-105); Potassium 4.1 mmol/L (3.5-5.1); Sodium 137 mmol/L (136-145)
[2019-11-09] MEDS ORDERED: Dextrose 5% in Water 1,000 ML IV PRN (11:56)
[2019-11-09] MEDS ORDERED: Dextrose 50% Abboject 50 ML SYRINGE SLOW IVP PRN (11:56)
[2019-11-09] MEDS ORDERED: HumaLOG 300 UNITS/3 ML VIAL SC PRN (12:25)
[2019-11-09] MEDS ORDERED: Insulin Glargine 25 UNITS in Pre-Filled Syringe 1 EACH SC SCH (12:30)
[2019-11-09] MEDS ORDERED: NIFEdipine XL 90 MG TAB PO SCH (12:30)
[2019-11-09 12:48] LABS: PTT 36.5 SEC (22.9-36.1)
[2019-11-09 12:49] LABS: INR-International Normal Ratio 2.1; Prothrombin Time 23.8 SEC (12.0-14.7)
[2019-11-09] MEDS: hydrALAZINE 25 MG TAB PO SCH ×2 (15:19→20:24)
[2019-11-09] MEDS: glipiZIDE 10 MG TAB PO SCH (17:45)
[2019-11-09] MEDS: Warfarin Sodium 7.5 MG TAB PO SCH (17:45)
[2019-11-09] MEDS: Carvedilol 3.125 MG TAB PO SCH (17:45)
[2019-11-09] MEDS: Piperacillin/Tazobactam 3.375 GM in Sodium Chloride 0.9% 100 ML IVPB SCH (17:46)
[2019-11-09] MEDS ORDERED: FLU VACC QS2019-20(6MOS UP)/PF 60 MCG/0.5 ML SYRINGE IM ONE (21:00)
--- NOTE | 2019-11-09 21:55 | PDOC.HOSPP ---
- Subjective Encounter Date: 11/09/19 Encounter Time: 10:00 Subjective: Patient seen and examined for diabetic foot infection. Pain controlled. No fever or chills. No new complaints. No overnight events - Objective Vital Signs & Weight: Vital Signs (12 hours) Temp Pulse Resp BP BP BP Pulse Ox 11/09/19 20:24 89 154/84 H 11/09/19 19:58 98 F 89 16 154/84 H 92 L 11/09/19 15:43 98.6 F 97 20 172/96 H 93 L 11/09/19 11:09 98.3 F 96 18 173/84 H 92 L Weight Admit Weight 399 lb 0.587 oz Weight 399 lb 0.587 oz I&O: 11/08/19 11/09/19 11/10/19 06:59 06:59 06:59 Intake Total 375 1965 Balance 375 1965 Result Diagrams: 11/09/19 05:39 11/09/19 05:39 Additional Labs: Accuchecks 11/09/19 11/09/19 11/09/19 16:35 10:48 06:07 POC Glucose 212 H 193 H 198 H 11/09/19 00:57 POC Glucose 273 H Radiology Reviewed by me: Yes (foot XR - reviewed) Hospitalist ROS - Review of Systems Cardiovascular: denies: chest pain, palpitations, orthopnea, paroxysmal noc. dyspnea, edema, light headedness, other Gastrointestinal: denies: nausea, vomiting, abdominal pain, diarrhea, constipation, melena, hematochezia, other - Medication Medications: Active Medications Generic Name Dose Route Start Last Admin Trade Name Freq PRN Reason Stop Dose Admin Hydrocodone Bitart/Acetaminophen 1 tab 11/08/19 19:30 11/09/19 01:38 [place] 5/325 PO 1 tab Q4H PRN Administration Moderate Pain (4-6) Carvedilol 3.125 mg 11/09/19 17:00 11/09/19 17:45 Coreg PO 3.125 mg BID-WM SHIVA Administration Famotidine 20 mg 11/08/19 21:00 11/09/19 20:24 Pepcid PO 20 mg BID SHIVA Administration Glipizide 10 mg 11/09/19 16:30 11/09/19 17:45 Glucotrol PO 10 mg BID-AC SHIVA Administration Hydralazine HCl 10 mg 11/08/19 19:38 11/09/19 01:42 Apresoline SLOW IVP 10 mg Q4H PRN Administration Hypertension Hydralazine HCl 100 mg 11/09/19 15:00 11/09/19 20:24 Apresoline PO 100 mg TID SHIVA Administration Vancomycin HCl 2 gm/ Sodium 500 mls @ 250 mls/hr 11/09/19 13:00 11/09/19 13: 59 Chloride IVPB 500 mls 0100,1300 SHIVA Administration Piperacillin Sod/Tazobactam 100 mls @ 200 mls/hr 11/09/19 18:00 11/09/19 17: 46 Sod 3.375 gm/ Sodium Chloride IVPB 100 mls Q6HR SHIVA Administration Insulin Human Lispro 0 units 11/08/19 19:30 11/09/19 17:46 Humalog SC 4 unit .MODERATE SLIDING SC PRN Administration Moderate Correctional Scale Sodium Chloride 10 ml 11/08/19 21:00 11/09/19 20:25 Flush - Normal Saline IVF 10 ml Q12HR SHIVA Administration Warfarin Sodium 7.5 mg 11/09/19 17:00 11/09/19 17:45 Coumadin PO 7.5 mg 1700 SHIVA Administration - Exam General Appearance: NAD Neck: no JVD Heart: RRR, no gallops, no rubs, normal peripheral pulses Respiratory: CTAB, no wheezes, no rales, no ronchi Gastrointestinal: soft, non-tender, non-distended, normal bowel sounds Extremities: 2+ LE edema Extremities - other findings: foot dressing+ Neurological: no new deficit Psychiatric: normal affect, A&O x 3 Hosp A/P - Plan Diabetic foot infection DM2 Morbid Obesity BMI 47.3 HTN Mild int Asthma CKD 2 Tob dep Par Afib on Anticoag PLAN: 11/09 IV Vancomycin and Zosyn Check INR Resume Warfarin based on INR Surg input appreciated Consult ID Resume all HTN meds/Glipizide and low dose Insulin AM labs
[2019-11-10] MEDS: Piperacillin/Tazobactam 3.375 GM in Sodium Chloride 0.9% 100 ML IVPB SCH ×4 (00:12→17:39)
[2019-11-10] MEDS: hydrALAZINE 20 MG/ML VIAL SLOW IVP PRN (03:55)
[2019-11-10 05:24] LABS: #Eosinphils 0.2 thou/uL (0.0-0.7); #Lymphocytes 1.2 thou/uL (1.20-3.40); #Monocytes 0.4 thou/uL (0.11-0.59); #Neutrophils 3.6 thou/uL (1.40-6.50); %Basophils 0.4 % (0.0-1.0); %Eosinophils 4.5 % (0.0-10.0); %Lymphocytes 22.6 % (21.0-51.0); %Monocytes 7.1 % (0.0-10.0); %Neutrophils 65.5 % (42.0-75.0); Hemoglobin 12.1 g/dL (14.0-18.0); Mean Corpuscular Volume 82.2 fL (78.0-98.0); Mean Platelet Volume 6.8 fL (7.4-10.4); Platelet Count 204 thou/uL (130-400); RBC Distribution Width 14.3 % (11.5-14.5); Red Blood Cell (RBC) Count 4.33 mill/uL (4.70-6.10); White Blood Cell (WBC) Count 5.4 thou/uL (4.8-10.8)
[2019-11-10 05:31] LABS: INR-International Normal Ratio 2.1; Prothrombin Time 23.3 SEC (12.0-14.7)
[2019-11-10 05:56] LABS: Anion Gap 7 mmol/L (10-20); BUN (Urea Nitrogen) 17 mg/dL (8.4-25.7); Calc. Creatinine Clearance 160 mL/min (70-130); Calcium 8.4 mg/dL (7.8-10.44); Carbon Dioxide 34 mmol/L (22-29); Chloride 99 mmol/L (98-107); Estimated GFR-MDRD 56; Glucose 304 mg/dL (70-105); Magnesium 1.7 mg/dL (1.6-2.6); Potassium 3.7 mmol/L (3.5-5.1); Sodium 136 mmol/L (136-145)
--- NOTE | 2019-11-10 09:07 | CON ---
DATE OF CONSULTATION: REASON FOR CONSULT: Chronic diabetic foot wounds. HISTORY OF PRESENT ILLNESS: Mr. Pryor is a 54-year-old man with the wound on the left mid foot for approximately 6 months. He states that he was admitted to the hospital in May and had renal failure due to IV contrast and he sees a lot of fluids and became very edematous. He says that ever since then, both of his legs have been quite swollen, although his renal function recovered. He also states that the bottom of his left foot began to bulge out earlier that year and that this has caused problems with him walking. Cannot really feel either of his feet. He can only feel pain on the inside. He does not know how the wound on his mid foot started, but it has been draining constantly. Since this summer, his has been cleaning and applying dressings, but they have not been packing it and he has not been on antibiotics for this. His primary care doctor sent him to a communications scientist yesterday and the communications scientist felt that there was exposed bone in the base of the wound and sent him to the emergency room. At that point, his x-ray of his foot showed severe Charcot foot deformities in soft tissue and the gas on the plantar mid foot. He has not really had any fevers or chills, but the pain has been increasing and he is now having difficulty putting any weight on his foot. He has not been able to work since May. 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 He has been wearing an air boot to try to walk on his left foot. He cannot ambulate with 1 foot for any distance due to weight and balance issues. He has a cane and a walker and mostly uses a motorized wheelchair to get around. He has problems with his right foot as well. He broke his ankle and thinks that he hurt his left foot when he was unable to put any weight on his right foot and then when he was allowed to put weight on his right foot again, this placed the internal bruise by walking on it, leading to some deformity of the ankle on the right side. His diabetes has not been well controlled. His blood sugars are usually in the does not know what his last hemoglobin A1c was. He does take his medications as prescribed. He does not know of any history of DVT, although he is on Coumadin. PAST MEDICAL HISTORY: Diabetes with severe peripheral neuropathy in both feet. He is also beginning to develop some numbness and tingling in his fingers. PAST SURGICAL HISTORY: ORIF of the right foot and left elbow. SOCIAL HISTORY: He chews tobacco, but does not smoke. He does not drink or use illicit drugs. He was formerly employed as a [employer] vehicle repairer, but since May and has been apparently turned down for disability. FAMILY HISTORY: Noncontributory. HOME MEDICATIONS: Include; 1. Coumadin 7.5 mg p.o. daily. 2. Nifedipine 90 mg p.o. daily. 3. Hydralazine 100 mg p.o. t.i.d. 4. Glipizide 10 mg p.o. b.i.d. 5. Carvedilol 3.125 mg p.o. b.i.d. 6. Aspirin 81 mg p.o. daily. 7. Glargine insulin 75 units subcu q.a.m. 8. Bydureon BCise 2 mg subcu q.7 days. ALLERGIES: HE HAS NO KNOWN DRUG ALLERGIES. PHYSICAL EXAMINATION: VITAL SIGNS: The patient has been afebrile since his admission. Heart rate is in the 90s, blood pressure is elevated, and room air sats are in the low 90s. He is morbidly obese at 399 pounds. GENERAL: Reveals a healthy-appearing morbidly obese man, in no acute distress. He is not flushed or toxic, jaundiced or icteric. HEENT: Unremarkable. NECK: Supple without lymphadenopathy or thyroid nodules. HEART: Regular in its rate and rhythm without murmurs, rubs, or gallops. LUNGS: Clear to auscultation bilaterally. ABDOMEN: Soft, nontender, and nondistended without palpable masses or hernias. EXTREMITIES: Both lower extremities are severely edematous with pitting edema nearly to the knee. He has bilateral dorsalis pedis pulses which are palpable, although somewhat difficult to feel due to the edema. He has an ankle deformity on the right correction and a midfoot deformity on the left with a boat-shaped foot. He has a chronic draining ulcer on the plantar surface of his midfoot, which probes down to the bone in the deep tissues of the mid foot. There is no odor. No purulent expressible drainage. No significant erythema or lymphangitic streaking. Dense peripheral neuropathy with basic anesthesia of both feet ankle. LABORATORY DATA: White count is normal at 6.1, hematocrit 38, and platelets 202. BUN and creatinine are normal. Glucose has run from 193 to 297. C-reactive protein is high at 1.99. 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 This probes to the bone and he likely has chronic osteomyelitis and deep mid foot infection. All I can offer him is below-knee amputation as I do not operate on the midfoot. If he wants to see a internet network specialist, I believe Dr. Steiner is the only internet network specialist available in this area. He is no longer seeing inpatient's at [place], but could see him as an outpatient. However, I think that ultimately he is highly likely to proceed to below-knee amputation. Currently, he has too much edema for me to consider doing a below-knee amputation. We will do dressing changes, elevation, compression with Keny dressings, antibiotics to see if the edema improves and if he wants to proceed with below-knee amputation, this can be done next week. However, getting him into rehab and getting him a prosthesis without any insurance coverage may be very challenging. I have asked the case management director to help him and try to find him whatever assistance is available and get him approved for disability. He has been completely disabled and unable to work since May and should qualify for this. Job ID: [id number]
[2019-11-10] MEDS: hydrALAZINE 25 MG TAB PO SCH ×3 (09:33→20:26)
[2019-11-10] MEDS: Aspirin 81 mg Enteric Coated Tablet PO SCH (09:33)
[2019-11-10] MEDS: Carvedilol 3.125 MG TAB PO SCH ×2 (09:33→17:41)
[2019-11-10] MEDS: NIFEdipine XL 90 MG TAB PO SCH (09:34)
[2019-11-10] MEDS: glipiZIDE 10 MG TAB PO SCH ×2 (09:35→17:42)
[2019-11-10] MEDS: Famotidine 20 MG TAB PO SCH ×2 (11:40→20:26)
[2019-11-10] MEDS: Insulin Glargine 25 UNITS in Pre-Filled Syringe 1 EACH SC SCH (11:40)
--- NOTE | 2019-11-10 12:53 | PDOC.GSPN ---
Surgery Progress Note: Subj - Subjective Narrative: Patient is feeling about the same. No pain in the foot. He did speak with the financial counselor yesterday. We again discussed his options. He is extremely hesitant to consent to left below-knee amputation because he is barely able to bear weight on his right leg due to his ankle injury and malunion. He states that it is extremely painful for him to try to bear weight on the right leg and he was told that he would never walk on his right leg again and his surgeon actually recommended right below-knee amputation. He doesn't think he will be able to live independently with a left below-knee amputation. He would like to try a course of wound care and antibiotics and see Dr. Steiner as an outpatient. His can be taught how to pack his wound. I'll defer choice of antibiotics to his medicine team. I'm going to sign off for now but he can follow up with me on an as-needed basis. Surgery Progress Note: Obj - Vital signs Vital signs: Vital Signs - Most Recent Temp Pulse Resp BP Pulse Ox 98.5 F 97 19 171/91 H 92 L 11/10/19 03:49 11/10/19 09:34 11/10/19 03:49 11/10/19 09:34 11/10/19 03:49 Surgery Progress Note: Results - Labs Result Diagrams: 11/10/19 05:05 11/10/19 05:04 Lab results: Laboratory Results - last 24 hr 11/10/19 11/10/19 11/10/19 05:04 05:04 05:05 WBC 5.4 RBC 4.33 L Hgb 12.1 L Hct 35.6 L MCV 82.2 MCH 28.0 MCHC 34.0 RDW 14.3 Plt Count 204 MPV 6.8 L Neutrophils % 65.5 Lymphocytes % 22.6 Monocytes % 7.1 Eosinophils % 4.5 Basophils % 0.4 Neutrophils # 3.6 Lymphocytes # 1.2 Monocytes # 0.4 Eosinophils # 0.2 Basophils # 0.0 PT 23.3 H INR 2.1 Sodium 136 Potassium 3.7 Chloride 99 Carbon Dioxide 34 H Anion Gap 7 L BUN 17 Creatinine 1.32 H Estimated GFR (MDRD) 56 Glucose 304 H POC Glucose Calcium 8.4 Magnesium 1.7 11/10/19 05:36 WBC RBC Hgb Hct MCV MCH MCHC RDW Plt Count MPV Neutrophils % Lymphocytes % Monocytes % Eosinophils % Basophils % Neutrophils # Lymphocytes # Monocytes # Eosinophils # Basophils # PT INR Sodium Potassium Chloride Carbon Dioxide Anion Gap BUN Creatinine Estimated GFR (MDRD) Glucose POC Glucose 269 H Calcium Magnesium
[2019-11-10] MEDS: Warfarin Sodium 7.5 MG TAB PO SCH (17:41)
[2019-11-10] MEDS: HumaLOG 300 UNITS/3 ML VIAL SC PRN (18:10)
[2019-11-10] MEDS ORDERED: Insulin Glargine 25 UNITS in Pre-Filled Syringe 1 EACH SC SCH (21:00)
--- NOTE | 2019-11-10 21:49 | CON ---
DATE OF CONSULTATION: REASON FOR CONSULTATION: Left foot ulcer. HISTORY OF PRESENT ILLNESS: Mr. Pryor is a 54-year-old patient whom I had seen in May, who has a history of morbid obesity, sleep apnea, neuropathy, type 2 diabetes, and severe Charcot arthropathy of left foot who noticed an opening at the bottom of his left foot after the last hospital discharge in May this year. He had been admitted for an infected sebaceous cyst and he was treated with oral antimicrobials with marked improvement and rapid healing of the sebaceous cyst in the back. He remained with this opening in the plantar aspect of his left foot and over the past few weeks he noticed progressively worsening drainage and pain upon weightbearing that made him come to be evaluated and he was admitted. Dr. Lao evaluated the patient. She offered a radical procedure, but she also suggested a consultation with Dr. Steiner. Currently, patient is awake and alert. Denies any headaches. No visual symptoms, sore throat, odynophagia, dysphagia. No cough, sputum production or chest pain. No dyspnea. No abdominal pain or diarrhea. Voiding without difficulty. Excellent appetite. PAST MEDICAL HISTORY: Includes morbid obesity, sleep apnea, type 2 diabetes, neuropathy, Charcot arthropathy, right and left feet. Former smoking and prior normal cardiac catheterization. Chews tobacco. Atrial fibrillation, flutter with radiofrequency ablation. ALLERGIES: ALLERGIES NONE. FAMILY HISTORY: COPD and asthma. SOCIAL HISTORY: Former smoker. Chews tobacco. . Lives in [place]. Used to work in [employer]. CURRENT MEDICATIONS: 1. Tylenol. 2. Chugwater. 3. Ecotrin. 4. Coreg. 5. Dextrose. 6. Pepcid. 7. Glucotrol. 8. Hydralazine p.r.n. 9. Insulin. 10. Procardia. 11. Zofran. 12. Zosyn. 13. Vancomycin. PHYSICAL EXAMINATION: VITAL SIGNS: T-max 98.6, blood pressure 170/90, pulse 97, O2 saturation 95 on room air. SKIN: Shows there are round-shaped opening at the plantar aspect of the left foot. The borders are clean with some callus. Probing the area shows a depth of penetration of 2.5 inches. At the bottom, there is obvious palpable bone, which appears to be raggedy. No erythema is noted around the opening. No lymphadenopathy. HEENT: Noncontributory. NECK: Supple. LUNGS: Symmetric. Clear breath sounds. S1-S2 regular rate. Diminished heart sounds. No murmurs. ABDOMEN: Soft. No distention. No tenderness. No ascites or organomegaly. No bladder distention. GENITOURINARY: Genital exam normal. No other joint inflammatory process. Pulses are 1+ in dorsalis pedis. Cap refill normal. NEUROLOGIC: Examination nonfocal including cognitive function. LABORATORY DATA: Sodium 136, creatinine is 1.32. The baseline is 0.91 and liver profile was normal except for alkaline phosphatase of 112. Albumin 4.0. White cell count is 5.8 and now 5.4, hemoglobin 12.1 platelets 204 with a normal differential. INR 2.1. Microbiology shows cultures from the foot with E. coli and ham susceptibility results. ASSESSMENT: Morbid obesity. Diabetes type 2. Charcot arthropathy. Osteomyelitis of the left mid foot region with exposed bone on probing of the deep ulcer. DISCUSSION: The organism isolated from the culture probably represents an incomplete idea of microbiology in the deep site. The full complement of organisms only to be retrieved after surgical debridement is accomplished with submission for cultures. This would have to include bone fragments, but it seems to me that he would be eligible for that intervention since the area of possibility is limited to a small region that could be removed surgically and then antimicrobial therapy administered either oral or intravenously plus complex wound management. As stated by Dr. Lao that it would be important to attempt this salvage procedure, because of his inability to bear weight on the right foot due to the fracture, so he only has the left one for transfers at the moment, so the options for management would include discharge planning with oral Cipro and Flagyl and then follow up with Dr. Steiner in the outpatient setting and then follow up with myself as well and then adjustment of the antimicrobial therapy according to the results of cultures transoperatively. He would have to be treated then for long periods of time plus complex wound management. This kind of situation would probably require admission to a halfway unit. Otherwise, he will bear weight and not allow proper healing of the only foot that he can use. Job ID: [id number]
--- NOTE | 2019-11-10 23:40 | PDOC.HOSPP ---
- Subjective Encounter Date: 11/10/19 Encounter Time: 10:30 Subjective: Patient seen and examined for diabetic foot infection. Pain controlled. No diarrhea. No new complaints. No overnight events - Objective Vital Signs & Weight: Vital Signs (12 hours) Temp Pulse Resp BP BP BP Pulse Ox 11/10/19 23:21 99 F 96 16 173/93 H 96 11/10/19 21:00 97.9 F 92 16 162/109 H 94 L 11/10/19 20:26 87 176/79 H 11/10/19 16:00 97.8 F 87 18 176/79 H 98 11/10/19 15:08 97 171/91 H Weight Admit Weight 399 lb 0.587 oz Weight 399 lb 0.587 oz I&O: 11/09/19 11/10/19 11/11/19 06:59 06:59 06:59 Intake Total 375 3495 Output Total 1000 Balance 375 2495 Result Diagrams: 11/10/19 05:05 11/10/19 05:04 Additional Labs: Accuchecks 11/10/19 11/10/19 11/10/19 21:05 16:59 05:36 POC Glucose 273 H 253 H 269 H Hospitalist ROS - Review of Systems Respiratory: denies: cough, dry, shortness of breath, hemoptysis, SOB with excertion, pleuritic pain, sputum, wheezing, other Cardiovascular: denies: chest pain, palpitations, orthopnea, paroxysmal noc. dyspnea, edema, light headedness, other - Medication Medications: Active Medications Generic Name Dose Route Start Last Admin Trade Name Freq PRN Reason Stop Dose Admin Hydrocodone Bitart/Acetaminophen 1 tab 11/08/19 19:30 11/09/19 01:38 Talmage 5/325 PO 1 tab Q4H PRN Administration Moderate Pain (4-6) Aspirin 81 mg 11/10/19 09:00 11/10/19 09:33 Ecotrin PO 81 mg DAILY SHIVA Administration Carvedilol 3.125 mg 11/09/19 17:00 11/10/19 17:41 Coreg PO 3.125 mg BID-WM SHIVA Administration Famotidine 20 mg 11/08/19 21:00 11/10/19 20:26 Pepcid PO 20 mg BID SHIVA Administration Glipizide 10 mg 11/09/19 16:30 11/10/19 17:42 Glucotrol PO 10 mg BID-AC SIHVA Administration Hydralazine HCl 10 mg 11/08/19 19:38 11/10/19 03:55 Apresoline SLOW IVP 10 mg Q4H PRN Administration Hypertension Hydralazine HCl 100 mg 11/09/19 15:00 11/10/19 20:26 Apresoline PO 100 mg TID SHIVA Administration Vancomycin HCl 2 gm/ Sodium 500 mls @ 250 mls/hr 11/09/19 13:00 11/10/19 15: 07 Chloride IVPB 500 mls 0100,1300 SHIVA Administration Piperacillin Sod/Tazobactam 100 mls @ 200 mls/hr 11/09/19 18:00 11/10/19 17: 39 Sod 3.375 gm/ Sodium Chloride IVPB 100 mls Q6HR SHIVA Administration Insulin Glargine 25 units/ 0.25 mls @ 0 mls/hr 11/10/19 09:00 11/10/19 11:40 Miscellaneous Medication SC 0.25 mls QAM SHIVA Administration Insulin Glargine 25 units/ 0.25 mls @ 0 mls/hr 11/10/19 21:00 11/10/19 20:32 Miscellaneous Medication SC Not Given HS [facility] Insulin Human Lispro 0 units 11/08/19 19:30 11/10/19 18:10 Humalog SC 6 unit .MODERATE SLIDING SC PRN Administration Moderate Correctional Scale Nifedipine 90 mg 11/10/19 09:00 11/10/19 09:34 Procardia Xl PO 90 mg DAILY SHIVA Administration Sodium Chloride 10 ml 11/08/19 21:00 11/10/19 20:34 Flush - Normal Saline IVF Not Given Q12HR [facility] Warfarin Sodium 7.5 mg 11/09/19 17:00 11/10/19 17:41 Coumadin PO 7.5 mg 1700 SHIVA Administration - Exam General Appearance: NAD Heart: RRR, no gallops Respiratory: CTAB, no rales Gastrointestinal: non-tender, non-distended Extremities: 1+ LE edema Hosp A/P - Plan Diabetic foot infection THAI on CKD 2 DM2 Morbid Obesity BMI 47.3 HTN Mild int Asthma Tob dep Par Afib on Anticoag PLAN: 11/10 Declining surgery Cont IV Atbx Await ID input Avoid Nephrotoxic agents AM labs Cont wound care 11/09 IV Vancomycin and Zosyn Check INR Resume Warfarin based on INR Surg input appreciated Consult ID Resume all HTN meds/Glipizide and low dose Insulin AM labs
[2019-11-11 00:27] LABS: Vancomycin, Trough 11.5 ug/mL
[2019-11-11] MEDS: Piperacillin/Tazobactam 3.375 GM in Sodium Chloride 0.9% 100 ML IVPB SCH ×3 (00:33→14:13)
[2019-11-11] MEDS: hydrALAZINE 20 MG/ML VIAL SLOW IVP PRN (03:36)
[2019-11-11 06:37] LABS: #Basophils 0.1 thou/uL (0.0-0.2); #Eosinphils 0.2 thou/uL (0.0-0.7); #Lymphocytes 0.9 thou/uL (1.20-3.40); #Monocytes 0.4 thou/uL (0.11-0.59); #Neutrophils 3.2 thou/uL (1.40-6.50); %Basophils 1.1 % (0.0-1.0); %Eosinophils 4.8 % (0.0-10.0); %Lymphocytes 19.5 % (21.0-51.0); %Monocytes 7.8 % (0.0-10.0); %Neutrophils 66.9 % (42.0-75.0); Hemoglobin 12.6 g/dL (14.0-18.0); Mean Corpuscular HGB CONC 33.9 g/dL (32.0-36.0); Mean Corpuscular Hemoglobin 27.7 pg (27.0-31.0); Mean Corpuscular Volume 81.9 fL (78.0-98.0); Mean Platelet Volume 7.1 fL (7.4-10.4); Platelet Count 204 thou/uL (130-400); RBC Distribution Width 14.2 % (11.5-14.5); Red Blood Cell (RBC) Count 4.55 mill/uL (4.70-6.10); White Blood Cell (WBC) Count 4.8 thou/uL (4.8-10.8)
[2019-11-11 06:40] LABS: INR-International Normal Ratio 1.9; Prothrombin Time 21.7 SEC (12.0-14.7)
[2019-11-11 06:57] LABS: Anion Gap 12 mmol/L (10-20); BUN (Urea Nitrogen) 13 mg/dL (8.4-25.7); Calc. Creatinine Clearance 258 mL/min (70-130); Calcium 8.7 mg/dL (7.8-10.44); Carbon Dioxide 28 mmol/L (22-29); Chloride 101 mmol/L (98-107); Estimated GFR-MDRD Greater than 90; Glucose 236 mg/dL (70-105); Potassium 3.9 mmol/L (3.5-5.1); Sodium 137 mmol/L (136-145)
[2019-11-11] MEDS: hydrALAZINE 25 MG TAB PO SCH (07:42)
[2019-11-11] MEDS: Aspirin 81 mg Enteric Coated Tablet PO SCH (07:42)
[2019-11-11] MEDS: NIFEdipine XL 90 MG TAB PO SCH (07:43)
[2019-11-11] MEDS: Famotidine 20 MG TAB PO SCH (07:43)
[2019-11-11] MEDS: Carvedilol 3.125 MG TAB PO SCH (07:43)
[2019-11-11] MEDS: glipiZIDE 10 MG TAB PO SCH (07:44)
[2019-11-11] MEDS: Insulin Glargine 25 UNITS in Pre-Filled Syringe 1 EACH SC SCH (07:58)
[2019-11-11] MEDS ORDERED: Vancomycin 1.5 GRAM/300 ML BAG 1.5 GM in Premix Bag 1 BAG IVPB SCH (09:00)
[2019-11-11] MEDS ORDERED: Insulin Glargine 28 UNITS in Pre-Filled Syringe 1 EACH SC SCH ×2 (11:15→21:00)
[2019-11-11 11:19] VITALS: BP 130/70; TEMP 97.6
[2019-11-11] MEDS ORDERED: Carvedilol 3.125 MG TAB PO SCH (17:00)
--- NOTE | 2019-11-11 19:57 | DIS ---
DATE OF ADMISSION: 11/08/2019 DATE OF DISCHARGE: 11/11/2019 REASON FOR HOSPITALIZATION: Lower extremity wound. SIGNIFICANT FINDINGS: The patient was found to have osteomyelitis of the foot. PROCEDURES PERFORMED AND TREATMENTS RENDERED: The patient had all appropriate maximum medical therapy including admission to the hospital by internal medicine physician, consultation, and treatment by General Surgery, and consultation by Infectious Disease in addition to wound care. The patient initially started on broad-spectrum IV antibiotics and blood cultures were obtained. Blood cultures remaining with no growth to date. Infectious Disease specialist titrating antibiotics appropriately and recommended the patient safe for discharge on oral antibiotics. General Surgery recommending that the patient with severe lower extremity wound, may have a trial of wound care and antibiotics. However, if this is ineffective, an amputation will likely be required. The patient was explicitly offered and recommended amputation of the leg by General Surgery - please see full consultation notes and progress notes for details - the patient refused any surgical intervention and would like to try medical management and wound care. The patient will follow up in the outpatient setting with surgery and will further consider amputation. Once the patient refused surgical intervention, infectious disease specialist recommending the patient was safe for discharge on oral antibiotics and these antibiotics can be further adjusted in the outpatient setting over the upcoming weeks. The patient recommended safe for discharge by all specialists on 11/11/2019, with close followup in the outpatient setting. The patient is recommended to follow up with primary care physician in the next 5 to 7 days, or return to acute care hospital immediately. The patient is recommended to follow up with Infectious Disease specialist in the next 1 to 2 weeks, or return to acute care hospital immediately for reevaluation. The patient is recommended to follow up with surgery in the outpatient setting in the next 2 to 3 weeks, or return to acute care hospital immediately. I explicitly asked the patient if he is able to afford his medications that he tells me that he will be able to afford his antibiotics without problems. The patient also tells me that he has long-acting insulin Toujeo at home and it helps control his blood sugars better than they are controlled in the hospital as we are substituting with insulin Lantus. The patient's medications were prescribed and he has recommended strict compliance. The patient is recommended to follow up with wound care in the outpatient setting in the next 2 to 3 days, or return to acute care hospital immediately. If the patient is unable to follow up with any of the previously mentioned steps he was explicitly informed that he must return to acute care hospital or he may require amputation in the future. The patient understands this and understands the severity of his current condition in the possibility that if he does not make drastic changes, he will likely lose his leg. The patient states that he will be compliant. The patient recommended to be nonweightbearing to the affected infected limb. The patient has an electronic wheelchair in the room with him and states that he is able to transfer to and from the bed on his own power. The patient states that he will put no pressure on the infected leg. The patient is recommended to return to acute care hospital immediately if signs or symptoms return, worsen, or any other new symptoms occur. Greater than 40 minutes spent coordinating care and discharge process for this patient. SPECIFIC INSTRUCTIONS FOR THE PATIENT: DISCHARGE MEDICATIONS: 1. Toujeo 75 units subcutaneous daily. 2. Coumadin 7.5 mg p.o. daily. 3. Bydureon 2 mg subcutaneous q.7 days. 4. Glipizide 10 mg p.o. b.i.d. 5. Nifedipine 90 mg one tablet p.o. daily. 6. Aspirin 81 mg one tablet p.o. daily. 7. Hydralazine 100 mg one tablet p.o. t.i.d. 8. Flagyl 500 mg one tablet p.o. t.i.d., per infectious disease specialist. 9. Ciprofloxacin 500 mg one tablet p.o. b.i.d., per infectious disease specialist. 10. Carvedilol 6.25 mg one tablet p.o. b.i.d. Job ID: [id number]
[2019-11-12] MEDS ORDERED: Insulin Glargine 28 UNITS in Pre-Filled Syringe 1 EACH SC SCH (09:00)
== END 2019-11-11 14:30 | disposition home or self-care (01) | DRG 638 ==
LOC: ERS 16:43 → ERHOLD 19:42 → SURG A 11-09 01:14
PROVIDERS: ADMIT Internal Medicine; ATTEND Internal Medicine
DX: E11.69 Type 2 diabetes mellitus with other specified complication (principal); M86.8X7 Other osteomyelitis, ankle and foot; Z68.42 Body mass index [BMI] 45.0-49.9, adult; N17.9 Acute kidney failure, unspecified; E11.621 Type 2 diabetes mellitus with foot ulcer; E11.22 Type 2 diabetes mellitus with diabetic chronic kidney disease; E11.618 Type 2 diabetes mellitus with other diabetic arthropathy; E11.51 Type 2 diabetes mellitus with diabetic peripheral angiopathy without gangrene; L97.529 Non-pressure chronic ulcer of other part of left foot with unspecified severity; J45.909 Unspecified asthma, uncomplicated; E66.01 Morbid (severe) obesity due to excess calories; E11.65 Type 2 diabetes mellitus with hyperglycemia; I12.9 Hypertensive chronic kidney disease with stage 1 through stage 4 chronic kidney disease, or unspecified chronic kidney disease; I48.0 Paroxysmal atrial fibrillation; N18.1 Chronic kidney disease, stage 1; J45.20 Mild intermittent asthma, uncomplicated; G47.30 Sleep apnea, unspecified; Z87.891 Personal history of nicotine dependence; Z79.4 Long term (current) use of insulin
CPT/HCPCS: 36415; 36416; 80048; 80053; 80202; 83605; 83735; 85025; 85610; 85730; 86140; 87040; 87070; 87077; 87186; 87205; 96365; 96366; 96367; 96375; J0360; J1815; J2270; J2405; J2543; J3370; J3490; J7050